=== PATIENT | female | born 1950 | race Caucasian/White ===

== ENCOUNTER 2017-07-07 20:20 | Observation (INO) ==
--- NOTE | 2017-07-07 21:26 | Emergency Department Note ---
ED Disposition Clinical Impression: Hyponatremia CAP (community acquired pneumonia) Qualifiers: Laterality: unspecified laterality Qualified Code(s): J18.9 - Pneumonia, unspecified organism COPD (chronic obstructive pulmonary disease) Qualifiers: COPD type: unspecified COPD Qualified Code(s): J44.9 - Chronic obstructive pulmonary disease, unspecified Disposition: Still a Patient Condition on Discharge: Fair Referrals: Pradeep Trejo [Primary Care Provider] - - Critical Care Critical Care Time: No Attestation: On 07/07/17, the high probability of a clinically significant, sudden or life threatening deterioration of the following system(s) required my full and direct attention, intervention and personal management. The time I documented below is in addition to time spent performing reported procedures but includes the following listed in this critical care notation. Medical Decision Making - Nima Inquiry Pt receiving controlled substance: No Vital Signs: 07/07/17 20:46 07/07/17 22:23 07/07/17 22:24 Temperature 98.5 F Temperature Source Oral Pulse Rate 81 84 Pulse Rate [Right Brachial] 107 H Respiratory Rate 20 Blood Pressure [Right Arm] 148/82 Blood Pressure Mean [Right Arm] 104 Blood Pressure Source [Right Arm] Automatic Cuff Blood Pressure Position [Right Arm] Supine 02 Sat by Pulse Oximetry 95 Oxygen Delivery Method Room Air - Lab Data Lab Results 07/07/17 22:09: Sodium 124 L, Potassium 3.7, Chloride 90 L, Carbon Dioxide 23, Anion Gap 14.7, BUN 11, Creatinine 0.75, Estimated Creat Clear 56, Estimated GFR 78, Est GFR ( Amer) 94, Glucose 96 07/07/17 22:09: Lactic Acid 0.9 07/07/17 22:09: WBC 18.5 H, RBC 4.93, Hgb 14.9, Hct 43.3, MCV 87.9, MCH 30.2, MCHC 34.4, RDW 12.4, Plt Count 285, MPV 8.0, Neut % (Auto) 88.5 H, Lymph % (Auto ) 6.8 L, Kinney % (Auto) 3.4, Eos % (Auto) 1.0, Baso % (Auto) 0.3, Neut # (Auto) 16.4 H, Lymph # (Auto) 1.3, Kinney # (Auto) 0.6, Eos # (Auto) 0.2, Baso # (Auto) 0.1, Total Counted 100, Neutrophils % (Manual) 80 H, Band Neutrophils % 11.0 H, Lymphocytes % (Manual) 4 L, Monocytes % (Manual) 4, Eosinophils % (Manual) 1, Platelet Estimate Normal, RBC Morphology Normal Result diagrams: 07/07/17 22:09 07/07/17 22:09 Orders (Tests/Meds): ED MEDICATIONS Discontinued Medications Generic Name Dose Route Start Last Admin Trade Name Deidra PRN Reason Stop Dose Admin Acetaminophen 650 mg 07/07/17 21:35 07/07/17 22:21 Acetaminophen 325mg Tab PO 07/07/17 21:36 Not Given ONCE ONE Albuterol/Ipratropium 3 ml 07/07/17 21:35 07/07/17 22:21 Duoneb 3ml Neb IH 07/07/17 21:36 3 ml ONCE ONE Administration ORDERS Category Date Time Status Upper Respiratory Panel, PCR Stat Lab 07/07/17 22:25 Received Blood Culture Stat Micro 07/07/17 22:10 Received Medical Decision Narrative: 11:20 PM: I have discussed the case with Dr. Barron for Dr. Cabello who agrees to admit the patient to the hospital. We discussed the patient's clinical information, including history, exam, laboratory and radiology results and ED course. Per hospital procedure, I will write temporary bridge inpatient orders on the patient. Specific orders requested by the admitting physician: Rocephin and Zithromax, steroids and nebulizers, normal saline at 75 cc/h, recheck chemistry in the morning General Adult HPI - General Chief complaint: Upper Respiratory Infection Stated complaint: pneumonia Time Seen by Provider: 07/07/17 21:25 Mode of Arrival: Family Vehicle Limitations: No Limitations Description of Symptoms (Recalled from ER Triage Doc. by RN): CHEST PAIN AND COUGH - History of Present Illness HPI narrative: 2 day history of cough, congestion, fever, shortness of breath. Seen at urgent treatment center today and had a chest x-ray that showed bilateral pneumonia. States that she thinks Allie wanted her to stay, but the patient went home at that time and was advised if she had not improved by 9 AM to return to the emergency room and she would be admitted. She says she has not improved. She was given an injection of Rocephin and Toradol in the urgent treatment center. She was given prescriptions for albuterol, Augmentin, and Zithromax. She has taken Augmentin and Zithromax 1 dose since arriving home. She has taken ibuprofen. She also complains of a headache that has not resolved with Toradol and ibuprofen. She has a nebulizer at home but had run out of albuterol, has not used the nebulizer since discharge from urgent treatment center. Has COPD, still smokes. States has allergy to oral and intravenous steroids. - Related Data Home Medications Medication Instructions Recorded Confirmed Amoxicillin/Potassium Clav 1 tab PO Q12H MDD 1 07/07/17 07/07/17 [Augmentin 875-125 Tablet] Azithromycin [Zithromax 250mg 250 mg PO DIRECTED 07/07/17 07/07/17 tab] Pramipexole Di-HCl [Pramipexole 0.5 mg PO DAILY 07/07/17 07/07/17 Dihydrochloride] buPROPion HCl [Wellbutrin SR 150mg 150 tab PO DAILY MDD 150 07/07/17 07/07/17 Tablet] Previous Rx's Medication Instructions Recorded Albuterol Sulfate [Albuterol 2.5 mg IH Q4HP PRN 30 Days #100 neb 07/07/17 Sulfate 2.5mg/0.5ml Neb] Promethazine/Dextromethorphan 5 ml PO Q6H PRN 10 Days #120 syrup 07/07/17 [Promethazine-Dm Syrup] Allergies Allergy/AdvReac Type Severity Reaction Status Date / Time prednisone Allergy Verified 07/07/17 13:05 [facility] History I have reviewed the patient's past medical history: Yes Medical History: Reports:: Chronic Obstructive Pulmonary Disease (COPD) Denies:: Cancer, Diabetes Mellitus Type 1, Diabetes Mellitus Type 2, Internal Pacemaker, MRSA Other Medical History: Reports: Other (RLS) Laterality Cases: Bilateral: Tonsillectomy Other Surgeries: No: Pacemaker Amputation: No Fractures: No - Social History Educational Level: Attended [employer] Smoking Status: Current every day smoker Tobacco Type: cigarettes # Packs/Day (cigarettes): 1 #Yrs smoked (if former smoker): 60 Alcohol Intake: never - Psychiatric History Expresses thoughts of harming self/others: None Suicide Plan Description: No Plan ROS Obtained: Yes All systems reviewed & no additional complaints - Constitutional Constitutional: Reports fever(s) - Cardiovascular Cardiovascular: Reports chest pain (with cough) - Respiratory Respiratory: Yes chest congestion, Yes cough, Yes dyspnea - Gastrointestinal Gastrointestingal: Denies: diarrhea, vomiting Physical Exam - General General appearance: alert Comment: tachypnea - Head Head exam: atraumatic, normocephalic, normal inspection - Eye Eye exam: Present: normal appearance, PERRL, EOMI - ENT ENT exam: Present: normal exam, normal oropharynx, mucous membranes moist, TM's normal bilaterally, normal external ear exam - Neck Neck exam: Present: normal inspection, full ROM, trachea midline. Absent: meningismus, lymphadenopathy - Chest Chest inspection: Present: normal inspection, symmetric chest wall rise. Absent : tenderness - Respiratory Respiratory exam: Present: other (bilateral crackles). Absent: respiratory distress - Cardiovascular Cardiovascular exam: Present: regular rate, normal rhythm. Absent: JVD - Abdominal Exam Abdominal exam: Present: soft, normal bowel sounds. Absent: distention, tenderness, guarding - Extremities Exam Extremities exam: Present: normal inspection, full ROM, normal capillary refill. Absent: calf tenderness - Back Exam Back exam: Present: normal inspection. Absent: tenderness - Neurological Exam Neurological exam: Present: alert, oriented X3 - Psychiatric Psychiatric exam: Present: normal affect, normal mood - Skin Skin exam: Present: warm, dry, intact, normal color - Lymphatic Lymphatic Findings: no adenopathy
[2017-07-07 22:33] LABS: Coronavirus 229E Not Detected (NotDetected); Coronavirus NL63 Not Detected (NotDetected); Coronavirus OC43 Not Detected (NotDetected); Coronovirus HKU1,PCR Not Detected (NotDetected)
[2017-07-07 22:37] LABS: Basophils # 0.1 K/mm3 (0-0.2); Basophils % 0.3 % (0.1-2.0); Eosinophils # 0.2 K/mm3 (0.0-0.4); Hematocrit 43.3 % (37.0-47.0); Hemoglobin 14.9 g/dL (12.2-16.2); Lymphocytes # 1.3 K/mm3 (0.7-4.5); Lymphocytes % 6.8 K/mm3 (10-50); Mean Corpuscular HGB Conc 34.4 g/dL (31.8-35.4); Mean Corpuscular Hemoglobin 30.2 pg (27.0-31.2); Mean Corpuscular Volume 87.9 fl (81-99); Monocytes # 0.6 K/mm3 (0.1-1.0); Monocytes % 3.4 % (1.7-9.3); Neutrophils # 16.4 K/mm3 (1.8-7.8); Neutrophils % 88.5 % (37.0-80.0); Platelet Count 285 K/mm3 (142-424); Red Blood Count 4.93 M/mm3 (4.20-5.40); Red Cell Distribution Width 12.4 % (11.5-17.5); White Blood Count 18.5 K/mm3 (4.8-10.8)
[2017-07-07 22:45] LABS: Anion Gap 14.7 mEq/L (5-15); Potassium 3.7 mmoL/L (3.5-5.1)
[2017-07-07 22:54] LABS: Eosinophils % 1 % (0-3); Lymphocytes % 4 % (10-50); Monocytes % 4 % (2-9); Neutrophils % 80 % (42-76); Total Cells Counted 100
[2017-07-07 22:55] LABS: RBC Morphology Normal
[2017-07-08 06:05] LABS: Anion Gap 12.4 mEq/L (5-15); Potassium 3.4 mmoL/L (3.5-5.1)
--- NOTE | 2017-07-08 07:33 | History & Physical Report ---
*Admission Date: 07/07/17 *Chief complaint: Shortness of breath and weakness *History of present illness: [id number] female with COPD and [id number] history of smoking presented to the urgent treatment clinic yesterday afternoon with a 2 day history of fevers, chills, cough with mild shortness of breath. Cough is productive of green sputum. Patient was diagnosed with bilateral pneumonia via x-ray in the urgent treatment clinic and it was recommended at that time that she be admitted. Patient refused admission and was discharged home on oral antibiotics. Patient returned to the emergency department within 6 hours now consenting to admission and was admitted for treatment of her pneumonia. Patient's primary care physician is Dr. Trejo. [facility] History I have reviewed the patient's past medical history: Yes Medical History: Reports:: Chronic Obstructive Pulmonary Disease (COPD) Denies:: Cancer, Diabetes Mellitus Type 1, Diabetes Mellitus Type 2, Internal Pacemaker, MRSA Other Medical History: Reports: Anemia, Arthritis, Sinus Problems, Other (RLS) Laterality Cases: Bilateral: Tonsillectomy Other Surgeries: Yes: Cholecystectomy, Hysterectomy-Total. No: Pacemaker Amputation: No Fractures: No - *Social History Educational Level: Attended College Smoking Status: Current every day smoker Tobacco Type: cigarettes # Packs/Day (cigarettes): 1 #Yrs smoked (if former smoker): 52 Alcohol Intake: current Alcohol Intake Frequency:: holidays/special occasions only Occupational Status: retired Housing: house Household Members: spouse - Psychiatric History Expresses thoughts of harming self/others: None Suicide Plan Description: No Plan *Family Hx:: Anemia, Heart Attack, Hypertension, Kidney Disease, Stroke Review of Systems - Review of Systems Review of systems:: pertinent systems reviewed and negative unless documented below - Constitutional Reports anorexia, Reports chills, Reports fatigue, Reports lack of energy - *Cardiovascular Denies chest pain, Denies chest pain at rest, Denies chest pain with activity - *Respiratory Reports change in phlegm color, Reports chest congestion, Reports cough, Reports shortness of breath, Reports shortness of breath with activity - *Gastrointestinal Denies abdominal pain Meds Home Medications Medication Instructions Recorded Confirmed Type Amoxicillin/Potassium Clav 1 tab PO Q12H MDD 1 07/07/17 07/08/17 History [Augmentin 875-125 Tablet] Azithromycin [Zithromax 250mg 250 mg PO DIRECTED 07/07/17 07/08/17 History tab] Pramipexole Di-HCl [Pramipexole 0.5 mg PO DAILY 07/07/17 07/08/17 History Dihydrochloride] buPROPion HCl [Wellbutrin SR 150mg 150 tab PO DAILY MDD 150 07/07/17 07/08/17 History Tablet] Allergies Allergy/AdvReac Type Severity Reaction Status Date / Time prednisone Allergy Verified 07/07/17 13:05 Exam Vital signs and Labs for Last 24 Hours: Temp Pulse Resp BP Pulse Ox 98.0 F 82 20 155/84 93 L 07/08/17 04:00 07/08/17 06:20 07/08/17 04:00 07/08/17 04:00 07/08/17 06:20 Laboratory Results - last 24 hr 07/07/17 22:09: Sodium 124 L, Potassium 3.7, Chloride 90 L, Carbon Dioxide 23, Anion Gap 14.7, BUN 11, Creatinine 0.75, Estimated Creat Clear 56, Estimated GFR 78, Est GFR ( Amer) 94, Glucose 96 07/07/17 22:09: Lactic Acid 0.9 07/07/17 22:09: WBC 18.5 H, RBC 4.93, Hgb 14.9, Hct 43.3, MCV 87.9, MCH 30.2, MCHC 34.4, RDW 12.4, Plt Count 285, MPV 8.0, Neut % (Auto) 88.5 H, Lymph % (Auto ) 6.8 L, Sunflower % (Auto) 3.4, Eos % (Auto) 1.0, Baso % (Auto) 0.3, Neut # (Auto) 16.4 H, Lymph # (Auto) 1.3, Sunflower # (Auto) 0.6, Eos # (Auto) 0.2, Baso # (Auto) 0.1, Total Counted 100, Neutrophils % (Manual) 80 H, Band Neutrophils % 11.0 H, Lymphocytes % (Manual) 4 L, Monocytes % (Manual) 4, Eosinophils % (Manual) 1, Platelet Estimate Normal, RBC Morphology Normal 07/07/17 22:25: Chlamy pneumoniae PCR Not detected, Adenovirus (PCR) Not detected, B.parapertussis DNA PCR Not detected, Coronavirus OC43 (PCR) Not detected, Coronavirus HKU1 (PCR) Not detected, Coronavirus 229E (PCR) Not detected, Coronavirus NL63 (PCR) Not detected, Human Metapneumovir PCR Not detected, Influenza A (H1) PCR Not detected, Influ A (H1N1/09) PCR Not detected , Influenza A (H3) PCR Not detected, Influenza Type A (PCR) Not detected, Influenza Type B (PCR) Not detected, M. pneumoniae (PCR) Not detected, Parainfluenza 1 (PCR) Not detected, Parainfluenza 2 (PCR) Not detected, Parainfluenza 3 (PCR) Not detected, Parainfluenza 4 (PCR) Not detected, RSV (PCR ) Not detected, Entero/Rhino (PCR) Not detected 07/08/17 05:30: Sodium 126 L, Potassium 3.4 L, Chloride 93 L, Carbon Dioxide 24 , Anion Gap 12.4, BUN 10, Creatinine 0.60, Estimated Creat Clear 56, Estimated GFR 100, Est GFR ( Amer) 121 D, Glucose 90 I & O for Last 24 hours: Intake & Output 07/05/17 07/06/17 07/07/17 07/08/17 11:59 11:59 11:59 11:59 Weight 139 lb 6 oz Narrative: Patient appears comfortable sitting up in bed. Pupils are reactive to light. Oropharynx is moist. Neck is without lymphadenopathy. Lungs are clear anteriorly with good aeration. Posteriorly the patient has rales at the left lung base. Heart rate is regular. Abdomen is soft and nontender. Extremities are without edema. Neurologically there are no focal deficits H&P: Result - Labs Labs: Short CBC 07/07/17 Range/Units 22:09 WBC 18.5 H (4.8-10.8) K/mm3 Hgb 14.9 (12.2-16.2) g/dL Hct 43.3 (37.0-47.0) % Plt Count 285 (142-424) K/mm3 [facility] 07/07/17 07/08/17 22:09 05:30 Sodium 124 L 126 L Potassium 3.7 3.4 L Chloride 90 L 93 L Carbon Dioxide 23 24 BUN 11 10 Creatinine 0.75 0.60 Glucose 96 90 - Imaging and Cardiology Chest x-ray Status: image reviewed by me, final report Assessment and Plan (1) CAP (community acquired pneumonia) Current visit: Yes Status: Acute Qualifiers: Laterality: left Lung location: lower lobe of lung Qualified Code(s): J18.1 - Lobar pneumonia, unspecified organism Category: Medical Code(s): J18.9 - Pneumonia, unspecified organism (2) COPD (chronic obstructive pulmonary disease) Current visit: Yes Status: Acute Qualifiers: COPD type: unspecified COPD Qualified Code(s): J44.9 - Chronic obstructive pulmonary disease, unspecified Category: Medical Code(s): J44.9 - Chronic obstructive pulmonary disease, unspecified (3) Hyponatremia Current visit: Yes Status: Acute Category: Medical Code(s): E87.1 - Hypo- osmolality and hyponatremia - Assessment and plan all Dx Assessment and Plan for all problems:: 1. Rocephin and azithromycin to treat community-acquired pneumonia. 2. Normal saline at 75 mL's an hour for patient's hyponatremia 3. Home medications
--- NOTE | 2017-07-08 11:39 | Pharmacy Consult Notes ---
[facility] Pharmacy VTE Monitoring - Patient Demographics Admission date: 07/08/17 Report Date: 07/08/17 Time: 11:39 Allergies/Adverse Reactions: Patient Allergies prednisone Allergy (Verified 07/07/17 13:05) Height: 1.5 m Weight: 63.219 kg Patient Problems: Current Active Problems CAP (community acquired pneumonia) (Acute) Hyponatremia (Acute) COPD (chronic obstructive pulmonary disease) (Acute) - VTE Risk Labs: VTE Related Lab Results Hgb 14.9 g/dL (12.2-16.2) 07/07/17 22:09 Hct 43.3 % (37.0-47.0) 07/07/17 22:09 Plt Count 285 K/mm3 (142-424) 07/07/17 22:09 BUN 10 mg/dL (7-18) 07/08/17 05:30 Creatinine 0.60 mg/dL (0.55-1.02) 07/08/17 05:30 Estimated Creat Clear 56 mL/min (0-300) 07/08/17 05:30 Was VTE Risk Assessment Performed: Yes VTE Risk Level: Very Low Risk - VTE Diagnosis Confirmed Comment: CHRISTINE ALEJANDRA ORDERED
[2017-07-09 07:37] VITALS: BP 130/69
--- NOTE | 2017-07-09 08:12 | Discharge Summary ---
General - General Admission date:: 07/08/17 Discharge date: 07/09/17 HPI HPI: [id number] female with COPD and 18-fxzr-iyau history of smoking presented to the urgent treatment clinic yesterday afternoon with a 2 day history of fevers, chills, cough with mild shortness of breath. Cough is productive of green sputum. Patient was diagnosed with bilateral pneumonia via x-ray in the urgent treatment clinic and it was recommended at that time that she be admitted. Patient refused admission and was discharged home on oral antibiotics. Patient returned to the emergency department within 6 hours now consenting to admission and was admitted for treatment of her pneumonia. Patient's primary care physician is Dr. Trejo. Hospital Course Hospital Course: She was admitted, placed on a community-acquired pneumonia protocol with azithromycin and ceftriaxone. Her oxygen requirement was noted on admission but improved throughout the next day and yesterday. Last night she did well. This morning she is doing very nicely. No oxygen requirement, has been able to get up and move around the room without difficult shortness of air. Continue to have a minimally productive cough. Cultures have been negative. Of note maintains her admission hyponatremia. Chest x-ray from [facility] reviewed showing bilateral infiltrates. Plan will be to discharge patient today with close outpatient follow-up and continued antibiotic therapy. Please note that patient should have been observation status from her admission. Please note patient will need workup of her hyponatremia and I have asked that she have a blood count and BMP done before her appointment with Dr. Trejo on . Objective Vital signs: Temp Pulse Resp BP Pulse Ox 97.2 F L 99 H 18 130/69 93 L 07/09/17 07:36 07/09/17 07:36 07/09/17 07:36 07/09/17 07:36 07/09/17 07:36 Narrative: Is awake, alert, oriented 3. 93% saturations on room air. Lungs have rhonchi in both bases but better air entry than recorded admission exam. Heart rate regular, no clubbing, no cyanosis. No edema noted. Results Labs on day of discharge: Preliminary micro results at discharge 07/07/17 22:10 Blood Culture - Preliminary Blood NO GROWTH AFTER 24 HOURS 07/07/17 22:10 Blood Culture - Preliminary Blood NO GROWTH AFTER 24 HOURS DS: Diagnosis - Discharge Diagnosis (1) CAP (community acquired pneumonia) Status: Acute (2) COPD (chronic obstructive pulmonary disease) Status: Acute (3) Hyponatremia Status: Acute Discharge Plan - Patient Discharge Instructions ACTIVITY: Limited activity DIET: continue same diet - Follow up Plan Follow up with: Pradeep Trejo [Primary Care Provider] - 07/12/17 Disposition: Home, Self-Longterm Medications: Home Medications Medication Instructions Recorded Confirmed Type Pramipexole Di-HCl [Pramipexole 0.5 mg PO DAILY 07/07/17 07/08/17 History Dihydrochloride] buPROPion HCl [Wellbutrin SR 150mg 150 tab PO BID 07/07/17 07/08/17 History Tablet] Prescriptions/Medication Reconciliation: New Azithromycin [Zithromax 250mg tab] 250 mg PO DIRECTED #6 tab Cefdinir [Omnicef 300mg Capsule] 300 mg PO BID #14 cap Continue Albuterol Sulfate [Albuterol Sulfate 2.5mg/0.5ml Neb] 2.5 mg IH Q4HP PRN 30 Days #100 neb PRN Reason: Wheezing Pramipexole Di-HCl [Pramipexole Dihydrochloride] 0.5 mg PO DAILY buPROPion HCl [Wellbutrin SR 150mg Tablet] 150 tab PO BID
== END 2017-07-09 09:20 | disposition home or self-care (01) ==
LOC: ER 20:20 → 2ND 20:20
PROVIDERS: ADMIT Family Medicine; ATTEND Internal Medicine Adolescent Medicine
CPT/HCPCS: 36415; 71020; 71046; 80048; 83605; 85007; 85025; 87040; 87070; 87205; 87486; 87581; 87633; 87798; 94640; 94761; 96372; 99202; 99284; G0378; J0456

== ENCOUNTER → 2017-07-13 14:15 | Outpatient (CLI) | payer MEDICARE, SELFPAY ==
[2017-07-13 14:56] LABS: Anion Gap 15.7 mEq/L (5-15); Blood Urea Nitrogen 10 mg/dL (7-18); Carbon Dioxide 25 mmol/L (21.0-32.0); Chloride 93 mmol/L (98-107); Creatinine,Serum 0.75 mg/dL (0.55-1.02); Estimated Glomerular Filt Rate 78 ml/min (>60); GFR (African American) 94 ML/MIN (>60); Glucose 117 mg/dL (74-106); Potassium 4.7 mmoL/L (3.5-5.1); Sodium 129 mmol/L (136-145); Thyroid Stimulating Hormone 2.44 uIU/ml (0.358-3.740); Troponin I < 0.02 ng/ml (0.00-0.06)
== END ==
PROVIDERS: Visit Provider Internal Medicine
DX: R07.9 Chest pain, unspecified (principal); E87.1 Hypo-osmolality and hyponatremia
CPT/HCPCS: 36415; 80048; 84443; 84484; 93005

== ENCOUNTER → 2017-08-22 13:32 | Outpatient (CLI) | payer MEDICARE, SELFPAY ==
--- NOTE | 2017-08-22 13:36 | MM_ITS ---
MM Dig mamm DX unilat RT CAD, US breast RT complete INDICATION: 6 month follow-up abnormal mammogram ORDERING PHYSICIAN: Pradeep Trejo PATIENT AGE: 66 years COMPARISON: 01/10/2017 TECHNIQUE: Standard images performed along with problem-solving views and right breast ultrasound FINDINGS: Average fibroglandular tissue. The previously noted area of asymmetric density is somewhat less apparent. No malignant appearing mass or malignant appearing microcalcifications evident.. There are some scattered areas of asymmetric density felt to be related overlying fibroglandular tissue on problem-solving views and ultrasound Right breast ultrasound: No cystic or sonographic abnormality evident. Small nodes are present in the axilla. IMPRESSION: Benign findings, no evidence of malignancy BI-RADS Category: 2 Benign Finding(s) RECOMMENDED FOLLOW-UP: 6M - 6 MONTH FOLLOW-UP Recommend resume screening mammogram January 2018 (A letter has been sent to the patient regarding results of the study.)
== END ==
PROVIDERS: Family Provider Family Medicine Geriatric Medicine; PCP Internal Medicine; Visit Provider Internal Medicine
DX: R92.8 Other abnormal and inconclusive findings on diagnostic imaging of breast (principal)
CPT/HCPCS: 77065

== ENCOUNTER → 2017-08-27 10:09 | Outpatient (CLI) | payer MEDICARE, SELFPAY | PROVIDERS: Family Provider Family Medicine Geriatric Medicine; PCP Internal Medicine; Visit Provider Internal Medicine | DX: R92.8 Other abnormal and inconclusive findings on diagnostic imaging of breast (principal) | CPT/HCPCS: 76641 ==

== ENCOUNTER → 2018-04-29 11:01 | Outpatient (CLI) | payer MEDICARE, SELFPAY ==
--- NOTE | 2018-04-29 11:14 | XR_ITS ---
XR chest 2V HISTORY: ITS.REASON: COPD,LT CHEST WALL PAIN ORDERING PHYSICIAN: Pradeep Trejo PATIENT AGE: 67 years COMPARISON: 07/07/2017 FINDINGS: The cardiomediastinal silhouette and pulmonary vascularity are within normal limits. The lungs are clear without infiltrates, suspicious nodules, or pleural effusions. No acute bony abnormalities. Surgical clips are present in the left upper quadrant IMPRESSION: Negative chest, no acute finding
== END ==
PROVIDERS: PCP Internal Medicine; Visit Provider Internal Medicine
DX: R09.89 Other specified symptoms and signs involving the circulatory and respiratory systems (principal); J44.9 Chronic obstructive pulmonary disease, unspecified
CPT/HCPCS: 71046

== ENCOUNTER → 2018-09-09 10:07 | Outpatient (CLI) | payer MEDICARE, SELFPAY ==
[2018-09-09 10:16] LABS: Basophils # 0.1 K/mm3 (0-0.2); Basophils % 0.3 % (0.1-2.0); Eosinophils # 0.1 K/mm3 (0.0-0.4); Eosinophils % 0.7 % (0.1-12.0); Hematocrit 48.2 % (37.0-47.0); Hemoglobin 15.2 g/dL (12.2-16.2); Lymphocytes # 1.3 K/mm3 (0.7-4.5); Lymphocytes % 8.3 % (10-50); Mean Corpuscular HGB Conc 31.6 g/dL (31.8-35.4); Mean Corpuscular Hemoglobin 28.1 pg (27.0-31.2); Mean Platelet Volume 7.6 fl (7.4-10.4); Monocytes # 0.9 K/mm3 (0.1-1.0); Monocytes % 5.3 % (1.7-9.3); Neutrophils # 13.8 K/mm3 (1.8-7.8); Neutrophils % 85.4 % (37.0-80.0); Platelet Count 403 K/mm3 (142-424); Red Blood Count 5.42 M/mm3 (4.20-5.40); Red Cell Distribution Width 13.2 % (11.5-17.5); White Blood Count 16.2 K/mm3 (4.8-10.8)
[2018-09-09 10:24] LABS: MANUAL DIFFERENTIAL MANUAL DIFFERENTIAL (MANUAL DIFF)
[2018-09-09 10:30] LABS: Anion Gap 13.1 mEq/L (5-15); Blood Urea Nitrogen 17 mg/dL (7-18); Calcium 8.6 mg/dL (8.5-10.1); Carbon Dioxide 29 mmol/L (21.0-32.0); Chloride 98 mmol/L (98-107); Creatinine,Serum 0.82 mg/dL (0.55-1.02); Estimated Glomerular Filt Rate 70 ml/min (>60); GFR (African American) 84 ML/MIN (>60); Glucose 107 mg/dL (74-106); Potassium 4.1 mmoL/L (3.5-5.1); Sodium 136 mmol/L (136-145)
[2018-09-09 11:03] LABS: Lymphocytes % 8 % (10-50); Monocytes % 5 % (2-9); Neutrophils % 82 % (42-76); Platelet Estimate Normal; RBC Morphology Normal; Total Cells Counted 100
== END ==
PROVIDERS: Visit Provider Internal Medicine
DX: R68.83 Chills (without fever) (principal); I10 Essential (primary) hypertension
CPT/HCPCS: 80048; 85007; 85025

== ENCOUNTER → 2018-11-13 14:28 | Outpatient (CLI) | payer MEDICARE, SELFPAY ==
--- NOTE | 2018-11-13 14:29 | CT_ITS ---
PROCEDURE: CT LUNG SCREENING CLINICAL INDICATION: CURRENT TOBACCO USE Fifty pack-year smoking history, asymptomatic for lung cancer COMPARISON: [facility] CT CHEST W/O CONTRAST from 10/22/2013 TECHNIQUE: The exam was performed on a GE Light Speed [address] scanner using 2.90 mGy CTDI. A low dose helical CT CHEST was performed on a multi-detector scanner. All CT scans at the facility use one or more dose reduction, viz: automated exposure control, ma/kV adjustment per patient size (including targeted exams where dose is matched to indication, i.e. head), or iterative reconstruction technique. The LDCT was performed in a facility that meets the criteria for the screening program. Data regarding this exam was submitted to ACR which is an approved registry. The order for this exam indicates that it came as a result of a lung cancer screening counseling shard decision-making visit that included all the elements required of such a visit including smoking cessation. The radiologist interpreting this exam meets the CMS criteria for the LDCT lung cancer screening program. The exam is reported using the Lung-RADS classification scale and reported to the ACR registry. NOTE: This study was performed for the specific purposes of lung cancer screening and is not an alternative to diagnostic chest CT. RADIATION DOSE: CTDI vol(CT dose Index-volume) = 2.90mG DLP (Dose Length Product) = 101.60 mGcm FINDINGS: COPD. Stable 5 mm right apical nodule series 4, image 19. Stable calcified granuloma right lower lobe. Scattered areas of tree in bud opacities noted in both upper lobes, right middle lobe and lingula and in the lung bases laterally on the right and posteriorly on the left with bronchial thickening noted as well consistent with bronchopneumonia. No new suspicious nodules are evident however, small nodules could easily be obscured by the above-mentioned abnormalities. There is scattered small lymph nodes in the mediastinum and axilla. Postsurgical changes of the stomach. Prior gastric bypass OTHER FINDINGS: No other pertinent findings evident. IMPRESSION: Lung rads category 3 probably benign Numerous tree-in-bud opacities are present along with bronchial thickening suggesting bronchopneumonia. RECOMMEND 3 month follow-up diagnostic CT without and with contrast to confirm stability or resolution Dictated by: Corey Smith MD 11/18/2018 05:36 Electronically signed by Corey Smith MD in [place] 11/18/2018 05:36
== END ==
PROVIDERS: PCP Internal Medicine; Visit Provider Internal Medicine
DX: Z87.891 Personal history of nicotine dependence (principal); Z12.2 Encounter for screening for malignant neoplasm of respiratory organs

== ENCOUNTER 2019-03-16 21:45 | Inpatient (IN) ==
[2019-03-16 22:09] LABS: ABG Base Excess -7.4 mmol/L (-2.4-2.3); ABG HCO3 19.8 mmhg (22.0-26.0); ABG Oxygen Saturation 97 % (90-100); ABG PCO2 45.7 mmhg (35.0-45.0); ABG PH 7.25 mmol/L (7.35-7.45); ABG PO2 101.2 mmhg (80-100); ABG TCO2 21.2 mmhg (23-27); Allen's Test Y; Oxygen 4 %
[2019-03-16 22:27] LABS: Basophils % 0.2 % (0.1-2.0); Eosinophils # 0.1 K/mm3 (0.0-0.4); Eosinophils % 0.6 % (0.1-12.0); Hematocrit 47.8 % (37.0-47.0); Hemoglobin 14.1 g/dL (12.2-16.2); Lymphocytes # 1.3 K/mm3 (0.7-4.5); Lymphocytes % 6.4 % (10-50); Mean Corpuscular HGB Conc 29.5 g/dL (31.8-35.4); Mean Corpuscular Volume 93.9 fl (81-99); Mean Platelet Volume 8.3 fl (7.4-10.4); Monocytes # 1.1 K/mm3 (0.1-1.0); Monocytes % 5.2 % (1.7-9.3); Neutrophils # 18.3 K/mm3 (1.8-7.8); Neutrophils % 87.6 % (37.0-80.0); Platelet Count 411 K/mm3 (142-424); Red Blood Count 5.09 M/mm3 (4.20-5.40); Red Cell Distribution Width 14.2 % (11.5-17.5); White Blood Count 20.9 K/mm3 (4.8-10.8)
[2019-03-16 22:32] LABS: Albumin Level 3.1 gm/dL (3.4-5.0); Albumin/Globulin Ratio 0.7 (1.1-1.8); Anion Gap 14.5 mEq/L (5-15); Bilirubin,Total 0.5 mg/dL (0.2-1.0); Calcium 9.3 mg/dL (8.5-10.1); Globulin 4.5 gm/dl (1.3-3.2); Total Protein,Serum 7.6 gm/dL (6.4-8.2)
--- NOTE | 2019-03-16 22:38 | Emergency Department Note ---
ED Disposition Clinical Impression: Acute exacerbation of chronic obstructive airways disease, Severe sepsis, Acute respiratory failure with hypoxemia, Acute respiratory acidosis, Non-ST elevation (NSTEMI) myocardial infarction, Failure of outpatient treatment Pneumonia of both lower lobes Qualifiers: Pneumonia type: due to unspecified organism Qualified Code(s): J18.9 - Pneumonia, unspecified organism Disposition: Admitted As Inpatient Condition on Discharge: Serious Referrals: Pradeep Trejo [Primary Care Provider] - Time of Disposition: 02:35 - Critical Care Critical Care Time: Yes Attestation: On 03/16/19, the high probability of a clinically significant, sudden or life threatening deterioration of the following system(s) required my full and direct attention, intervention and personal management. The time I documented below is in addition to time spent performing reported procedures but includes the following listed in this critical care notation. Bedside repeated clinical assessment and management. Critical care management associated with the cardiac as well as respiratory status management, Metabolic and clinical state management, consult as well as admission. Total Critical Care Time: 120 Vital system(s) involved:: Circulatory Failure, Metabolic Failure, Respiratory Failure, Shock (Septic) My critical care processes included: Assessment & monitoring of V/S, Initial and Re-exams, Data Review/Interpretation, Coordinating Care, Medication Orders and management, Documentation Medical Decision Making - Nima Inquiry Pt receiving controlled substance: No Vital Signs: 03/16/19 21:47 03/16/19 21:52 03/16/19 22:25 Temperature 99.5 F Temperature Source Oral Pulse Rate 83 Pulse Rate [Right Brachial] 113 H Respiratory Rate 38 H Blood Pressure [Right Arm] 155/74 H Blood Pressure Mean [Right Arm] 101 Blood Pressure Source [Right Arm] Automatic Cuff Blood Pressure Position [Right Arm] Sitting 02 Sat by Pulse Oximetry 87 L 97 Oxygen Delivery Method Room Air Nasal Cannula Oxygen Flow Rate (LPM) 03/16/19 22:26 03/16/19 22:28 03/16/19 22:54 Temperature Temperature Source Pulse Rate 84 Pulse Rate [Right Brachial] 111 H 95 H Respiratory Rate 42 H 39 H Blood Pressure [Right Arm] 150/54 H 114/66 Blood Pressure Mean [Right Arm] 86 82 Blood Pressure Source [Right Arm] Automatic Cuff Automatic Cuff Blood Pressure Position [Right Arm] Sitting Sitting 02 Sat by Pulse Oximetry 98 100 Oxygen Delivery Method Nasal Cannula Room Air Oxygen Flow Rate (LPM) 3 03/16/19 23:43 03/16/19 23:52 03/17/19 00:14 Temperature Temperature Source Pulse Rate Pulse Rate [Right Brachial] 117 H 110 H 101 H Respiratory Rate 46 H 36 H 37 H Blood Pressure [Right Arm] 134/61 174/95 H 149/94 H Blood Pressure Mean [Right Arm] 85 121 112 Blood Pressure Source [Right Arm] Manual Cuff/ Doppler Automatic Cuff Automatic Cuff Blood Pressure Position [Right Arm] Sitting Sitting Sitting 02 Sat by Pulse Oximetry 99 99 98 Oxygen Delivery Method Nasal Cannula BiPAP BiPAP Oxygen Flow Rate (LPM) 4 03/17/19 00:31 03/17/19 01:05 03/17/19 02:12 Temperature Temperature Source Pulse Rate Pulse Rate [Right Brachial] 98 H 112 H 129 H Respiratory Rate 34 H 36 H 26 H Blood Pressure [Right Arm] 124/79 115/50 L 141/76 H Blood Pressure Mean [Right Arm] 94 71 97 Blood Pressure Source [Right Arm] Automatic Cuff Manual Cuff/ Doppler Blood Pressure Position [Right Arm] Sitting Sitting 02 Sat by Pulse Oximetry 100 100 96 Oxygen Delivery Method BiPAP BiPAP BiPAP Oxygen Flow Rate (LPM) - Lab Data Lab results reviewed: Yes: I reviewed the patient's lab results. Lab Results 03/16/19 22:00: WBC 20.9 H*, RBC 5.09, Hgb 14.1, Hct 47.8 H, MCV 93.9, MCH 27.7, MCHC 29.5 L, RDW 14.2, Plt Count 411, MPV 8.3, Neut % (Auto) 87.6 H, Lymph % (Auto) 6.4 L, [place] % (Auto) 5.2, Eos % (Auto) 0.6, Baso % (Auto) 0.2, Neut # (Auto) 18.3 H, Lymph # (Auto) 1.3, [place] # (Auto) 1.1 H, Eos # (Auto) 0.1, Baso # (Auto) 0.0, Total Counted 100, Neutrophils % (Manual) 77 H, Band Neutrophils % 13.0 H, Lymphocytes % (Manual) 10, Toxic Granulation 2+, Platelet Estimate Normal, Hypochromasia 1+, Rouleaux 1+ 03/16/19 22:00: Sodium 134 L, Potassium 4.5, Chloride 98, Carbon Dioxide 26, Anion Gap 14.5, BUN 12, Creatinine 0.71, Estimated Creat Clear 51, Estimated GFR 82, Est GFR ( Amer) 99, Glucose 160 H, Calcium 9.3, Total Bilirubin 0.5, AST 308 H*, ALT 276 H, Alkaline Phosphatase 188 H, Total Protein 7.6, Albumin 3.1 L, Globulin 4.5 H, Albumin/Globulin Ratio 0.7 L 03/16/19 22:00: Lactate 2.0 03/16/19 22:00: Influenza Type A Ag Negative, Influenza Type B Ag Negative 03/16/19 22:00: D-Dimer 1100 H* 03/16/19 22:00: Troponin I 0.63 H 03/16/19 22:00: B-Natriuretic Peptide 880 H 03/16/19 22:00: PT 9.2 L, INR 0.88 L 03/16/19 22:08: Specimen Source R/r, O2 % 4, ABG pH 7.25 L, ABG pCO2 45.7 H, ABG pO2 101.2 H, ABG HCO3 19.8 L, ABG Total CO2 21.2 L, ABG O2 Saturation 97, ABG Base Excess -7.4 L, Corey Test Y 03/17/19 00:53: Specimen Source R/r, O2 % 60, ABG pH 7.31 L, ABG pCO2 43.4, ABG pO2 285.9 H, ABG HCO3 21.5 L, ABG Total CO2 22.8 L, ABG O2 Saturation 100, ABG Base Excess -4.8 L, Corey Test Y, Vent Rate 22 03/17/19 01:15: Troponin I 1.21 H Result diagrams: 03/16/19 22:00 03/16/19 22:00 Orders (Tests/Meds): ED MEDICATIONS Generic Name Dose Route Start Last Admin Trade Name Freq PRN Reason Stop Dose Admin Sodium Chloride 1,000 mls @ 999 mls/hr 03/16/19 22:30 03/16/19 22:45 Sod Chlor 0.9% 1000ml Bag IV 03/16/19 23:30 999 mls/hr .Q1H1M BHARAT Administration Azithromycin 500 mg/ Sodium 250 mls @ 250 mls/hr 03/16/19 23:15 03/16/19 23:15 Chloride IV 03/30/19 23:14 250 mls/hr Q24H BHARAT Administration Protocol Sodium Chloride 1,000 mls @ 150 mls/hr 03/17/19 01:15 03/17/19 01:19 Sod Chlor 0.9% 1000ml Bag IV 04/16/19 01:14 150 mls/hr .Q6H40M BHARAT Administration Vancomycin HCl 1,000 mg/ 250 mls @ 125 mls/hr 03/17/19 01:28 03/17/19 02:03 Sodium Chloride IV 03/17/19 03:27 125 mls/hr ONCE ONE Administration Sodium Chloride 10 ml 03/16/19 22:20 Saline Flush 10ml Syringe IV 03/17/19 10:20 NEEDED PRN Maintain IV Site Discontinued Medications Generic Name Dose Route Start Last Admin Trade Name Freq PRN Reason Stop Dose Admin Albuterol Sulfate 5 mg 03/16/19 22:23 03/16/19 23:01 Albuterol 0.083% 2.5mg/3ml [facility] 03/16/19 22:24 5 mg ONCE ONE Administration Albuterol Sulfate 5 mg 03/16/19 23:05 03/17/19 02:15 Albuterol 0.083% 2.5mg/3ml [facility] 03/16/19 23:06 Not Given ONCE ONE Enoxaparin Sodium 60 mg 03/17/19 02:22 03/17/19 02:23 Lovenox 60mg/0.6ml Syringe SQ 03/17/19 02:23 60 mg ONCE ONE Administration Ceftriaxone Sodium 1 gm/ 50 mls @ 100 mls/hr 03/16/19 22:19 03/16/19 22:45 Sodium Chloride IV 03/16/19 22:48 100 mls/hr ONCE STA Administration Protocol Magnesium Sulfate 2 gm/ Sodium 104 mls @ 100 mls/hr 03/16/19 23:33 03/16/19 23:48 Chloride IV 03/17/19 00:35 100 mls/hr ONCE ONE Administration Methylprednisolone Sodium Succinate 125 mg 03/16/19 22:42 03/16/19 22:44 Solu-Medrol 125mg/2ml Vial IV 03/16/19 22:43 125 mg ONCE ONE Administration Methylprednisolone Sodium Succinate 80 mg 03/16/19 23:33 03/16/19 23:48 Methylprednisolone Sod Succinate 40mg Vial IV 03/16/19 23:34 80 mg ONCE STA Administration ORDERS Category Date Time Status CT abdomen pelvis w con Stat Cat Scan 03/17/19 00:[address] angio chest Stat Cat Scan 03/17/19 00:01 Ordered XR chest portable Stat Exams 03/16/19 21:56 Taken Troponin I Q3H Lab 03/17/19 04:30 Ordered Blood Culture Stat Micro 03/16/19 22:00 Received Sputum Culture & Gram Stain Routine Micro 03/16/19 23:49 Results Arterial Blood Gas Stat RT 03/16/19 21:56 Ordered ECG Request by /Geraldo Stat Y 03/16/19 21:56 Ordered - Radiology Data #1 Image(s): Chest Image Reviewed: Yes I reviewed the patient's radiology image Bilateral bibasilar consolidation/infiltrate/pneumonia, worse on the left than the right - ECG Data Tracing #1 EKG done at 2222 hrs. shows sinus tachycardia with a heart rate of 115 bpm, questionable atrial fibrillation, with rapid ventricular response. Tracing #2 EKG done at 2250 hrs. shows normal sinus rhythm with a heart rate of 80 bpm, normal P waves, normal FL interval, nonspecific ST-T changes. - Physician Consults Physician Consulted: Dr. Reyes Time: 02:00 Reason -: Admission, Pt condition Comment/Response: Discussed with Dr. Reyes regarding the patient and he wanted the patient to be on BiPAP and continue the current management. He also wants me to discuss the case with the cardiology on-call Dr. Crawford. Plan to admit the patient to the ICU. Additional Consult: Dr. Crawford Time: 02:10 Reason -: Pt condition, Cardiology Eval/Care Comment/Response: Discussed with Dr. Crawford regarding the patient and he wanted the patient to continue the present management and be admitted so that she can get 2D echo done in the morning. He also wants the patient to get Lovenox 1 mg/kg based dose. - Reevaluation(s) Time: 23:45 Reevaluation #1: Patient is having persistent acute dyspnea with tachypnea. She was having bilateral bronchospasm. We had to give her repeated breathing treatment which was still not controlling the bronchospasm. Plan to give her a repeat dose of Solu-Medrol and magnesium sulfate. Also plan to start the patient on BiPAP to help her breathe well. Time: 00:35 Reevaluation #3: Patient's blood gas seems to be much improved than earlier. C seems to be feeling better. Patient looks better. She does not have wheezes and bronchospasm as compared to earlier. We had not done the CT scan of the chest to evaluate the patient's clinical status. Plan to do the CT scan since the clinical status has improved to some extent. Time reevaluation 3: 01:15 Reevaluation #2: Patient seems to be slightly improving with the BiPAP. C seems to be improving after the magnesium sulfate and the repeat dose of Solu-Medrol. Plan to continue the same. She had elevated d-dimer and elevated liver enzymes with elevated troponin. Plan to get a CT scan of the chest and abdomen pelvis done. May have to rule out pulmonary embolism. - FREYA Score for Non-Stemi Age of Patient: 60-69 years old Heart Rate: 110-149 bpm Systolic Blood Pressure: 120-139 mmhg Serum Creatinine: 0.40-0.79 mg/dl CHF [place] Class: II-Pulmonary Rales or Jug Other Risk Factors: Elevated Cardiac Enzymes or Biomarkers Non-Stemi Risk Score: 154 Resp/SOB HPI - General Chief Complaint: Shortness of Breath/Dyspnea Stated Complaint: SOB Time Seen by Provider: 03/16/19 21:55 Mode of Arrival: Family Vehicle Source of Information: Patient Limitations: No Limitations Description of Symptoms (Recalled from ER Triage Doc. by RN): Pt c/o SOA, cough, fever, n/v for over a week, and the SOA that got bad today. No cp reported - History of Present Illness 68-year-old female presents with chief complaint of having shortness of breath for the last 3 to 4 days. She states she had been to her primary care provider and was started on antibiotics along with steroids for the last 3 days. Her symptoms have not been getting better but actually getting worse. She has been coughing up thick greenish sputum. Has not noticed any fever but complains of feeling generalized weakness. Her shortness of breath has been getting worse today. She feels like exhausted. Complains of generalized discomfort. She has a history of COPD. She smokes about a 1 pack a day. Denies using oxygen at home. Denies having any acute chest pain. Denies having nausea or vomiting. Denies having any fall or injury. MD Complaint: shortness of breath, cough Onset (ago): day(s) (3-4) Severity: severe - Related Data Home Medications Medication Instructions Recorded Confirmed Amoxicillin [Amoxicillin 500mg 500 mg PO BID 03/16/19 03/16/19 Cap] Gabapentin [Gabapentin 300mg Cap] 300 mg PO DAILY 03/16/19 03/16/19 predniSONE [Deltasone 20mg 20 mg PO DAILY 03/16/19 03/16/19 tablet] Previous Rx's Medication Instructions Recorded Albuterol Sulfate [Albuterol 2.5 mg IH Q4HP PRN 30 Days #100 neb 07/07/17 Sulfate 2.5mg/0.5ml Neb] Allergies Allergy/AdvReac Type Severity Reaction Status Date / Time No Known Allergies Allergy Verified 03/16/19 21:58 [facility] History - Hepatitis A Screen Drug use history?: No High risk sexual behaviors?: No History of sexually transmitted infection?: No Currently employed?: No Childcare worker?: No Do you have indoor plumbing?: Yes Do you have electricity?: Yes Attestation statement:: This patient has been screened for Hepatitis A risk factors. Medical History: Reports:: Chronic Obstructive Pulmonary Disease (COPD) Denies:: Cancer, Diabetes Mellitus Type 1, Diabetes Mellitus Type 2, Internal Pacemaker, MRSA Other Medical History: Reports: Anemia, Arthritis, Sinus Problems, Other (RLS) Laterality Cases: Bilateral: Tonsillectomy Other Surgeries: Yes: Cholecystectomy, Hysterectomy-Total. No: Pacemaker Amputation: No Fractures: No - Social History Smoking Status: Current every day smoker Tobacco Type: cigarettes # Packs/Day (cigarettes): 1 #Yrs smoked (if former smoker): 52 Alcohol Intake: never Alcohol Intake Frequency:: holidays/special occasions only Occupational Status: retired Housing: house Household Members: spouse Family Hx:: Anemia, Heart Attack, Hypertension, Kidney Disease, Stroke ROS Obtained: Yes All systems reviewed & no additional complaints Physical Exam - General General appearance: alert, in distress (Patient is tachypneic and breathing at about 36 to 38 breaths/min. She is using her accessory muscles of respiration to breathe.) - Head Head exam: atraumatic, normocephalic, normal inspection - Eye Eye exam: Present: normal appearance, PERRL, EOMI - ENT ENT exam: Present: normal exam, normal oropharynx, mucous membranes moist, normal external ear exam - Neck Neck exam: Present: normal inspection, full ROM, trachea midline - Chest Chest inspection: Present: symmetric chest wall rise. Absent: tenderness - Respiratory Respiratory exam: Present: wheezes, accessory muscle use, prolonged expiratory phase, other (Apnea) - Cardiovascular Cardiovascular exam: Present: tachycardia - Abdominal Exam Abdominal exam: Present: soft. Absent: distention, tenderness, guarding - Extremities Exam Extremities exam: Present: normal inspection, full ROM, normal capillary refill. Absent: calf tenderness - Back Exam Back exam: Present: normal inspection. Absent: tenderness - Neurological Exam Neurological exam: Present: alert, oriented X3, CN II-XII intact - Psychiatric Psychiatric exam: Present: normal affect, normal mood - Skin Skin exam: Present: warm, dry, intact, normal color
[2019-03-16 22:48] LABS: Lymphocytes % 10 % (10-50); Neutrophils % 77 % (42-76); Total Cells Counted 100
[2019-03-16 22:49] LABS: Hypochromasia 1+; Rouleaux 1+; Toxic Granulation 2+
[2019-03-16 23:14] LABS: INR 0.88 (0.9-1.1); Prothrombin Time 9.2 seconds (9.4-11.8)
[2019-03-17 00:55] LABS: ABG Base Excess -4.8 mmol/L (-2.4-2.3); ABG HCO3 21.5 mmhg (22.0-26.0); ABG Oxygen Saturation 100 % (90-100); ABG PCO2 43.4 mmhg (35.0-45.0); ABG PH 7.31 mmol/L (7.35-7.45); ABG PO2 285.9 mmhg (80-100); ABG TCO2 22.8 mmhg (23-27); Oxygen 60 %
[2019-03-17 00:56] LABS: Allen's Test Y
[2019-03-17 03:02] LABS: Microscopic, Urine URINE MICROSCOPIC (MICROSCOPIC)
[2019-03-17 03:04] LABS: Appearance,Urine CLEAR (Clear); Bilirubin,Urine Negative (Negative); Blood, Urine 1+ (Negative); Color,Urine YELLOW (Yellow); Glucose,Urine (UA) Negative (Negative); Ketones,Urine Negative (Negative); Leukocyte Esterase,Urine Negative (Negative); PH,Urine 5.5 (5.0-8.5); Protein,Urine 2+ (Negative); Specific Gravity, Urine >= 1.030 (1.005-1.030); Urobilinogen,Urine 0.2 EU/dl (0.2)
[2019-03-17 03:06] LABS: Hyaline Casts,Urine Occasional #/lpf (0); RBC,Urine Occasional #/hpf (0-3); Squamous Epithelial Cell,Urine Occasional #/hpf (0-5); WBC,Urine Occasional #/hpf (0-3)
[2019-03-17 03:07] LABS: White Blood Cell Casts,Urine Occasional #/lpf (0)
[2019-03-17 04:58] LABS: Albumin Level 2.6 gm/dL (3.4-5.0); Albumin/Globulin Ratio 0.6 (1.1-1.8); Anion Gap 16.3 mEq/L (5-15); Bilirubin,Total 0.4 mg/dL (0.2-1.0); Calcium 8.5 mg/dL (8.5-10.1); Globulin 4.2 gm/dl (1.3-3.2); Total Protein,Serum 6.8 gm/dL (6.4-8.2)
[2019-03-17 07:18] LABS: ABG HCO3 21.4 mmhg (22.0-26.0); ABG Oxygen Saturation 97 % (90-100); ABG PH 7.36 mmol/L (7.35-7.45); ABG PO2 99.2 mmhg (80-100); ABG TCO2 22.6 mmhg (23-27)
[2019-03-17 07:48] LABS: Basophils % 0.2 % (0.1-2.0); Eosinophils # 0.3 K/mm3 (0.0-0.4); Eosinophils % 1.5 % (0.1-12.0); Hematocrit 41.5 % (37.0-47.0); Hemoglobin 13.1 g/dL (12.2-16.2); Lymphocytes # 1.4 K/mm3 (0.7-4.5); Lymphocytes % 7.3 % (10-50); Mean Corpuscular HGB Conc 31.5 g/dL (31.8-35.4); Mean Corpuscular Volume 87.6 fl (81-99); Mean Platelet Volume 8.3 fl (7.4-10.4); Monocytes # 0.4 K/mm3 (0.1-1.0); Neutrophils # 16.5 K/mm3 (1.8-7.8); Platelet Count 356 K/mm3 (142-424); Red Blood Count 4.74 M/mm3 (4.20-5.40); White Blood Count 18.6 K/mm3 (4.8-10.8)
--- NOTE | 2019-03-17 08:02 | Pharmacy Consult Notes ---
[facility] VTE Monitoring - Patient Demographics Admission date: 03/17/19 Report Date: 03/17/19 Time: 08:01 Allergies/Adverse Reactions: Patient Allergies No Known Allergies Allergy (Verified 03/16/19 21:58) Height: 1.5 m Weight: 64.949 kg Patient Problems: Current Active Problems Pneumonia (Acute) CAP (community acquired pneumonia) (Acute) Acute exacerbation of chronic obstructive airways disease (Acute) Severe sepsis (Acute) Pneumonia of both lower lobes (Acute) Acute respiratory failure with hypoxemia (Acute) Acute respiratory acidosis (Acute) Non-ST elevation (NSTEMI) myocardial infarction (Acute) Failure of outpatient treatment (Acute) - VTE Risk Labs: VTE Related Lab Results Hgb 13.1 g/dL (12.2-16.2) 03/17/19 07:35 Hct 41.5 % (37.0-47.0) 03/17/19 07:35 Plt Count 356 K/mm3 (142-424) 03/17/19 07:35 PT 9.2 seconds (9.4-11.8) L 03/16/19 22:00 INR 0.88 (0.9-1.1) L 03/16/19 22:00 BUN 13 mg/dL (7-18) 03/17/19 04:20 Creatinine 0.63 mg/dL (0.55-1.02) 03/17/19 04:20 Estimated Creat Clear 56 mL/min (50-200) 03/17/19 04:20 VTE Score: 4 VTE Risk Level: Low Risk - Prophylaxis VTE Prophylaxis Ordered?: Yes Types of VTE Prophylaxis: TEDS Knee High Location of Applied Device: Bilateral Lower Extremeties Pharmacologic Type: Enoxaparin
--- NOTE | 2019-03-17 08:10 | Pharmacy Consult Notes ---
- Pharmacy Consult Date: 03/17/19 Time: 08:09 Referring provider: DR. CADET Reason for Consult:: VANCOMYCIN DOSING Allergies and ADEs:: Allergies Allergy/AdvReac Type Severity Reaction Status Date / Time No Known Allergies Allergy Verified 03/16/19 21:58 Home Medications:: Home Medications Medication Instructions Recorded Confirmed Type Albuterol Sulfate [Albuterol 2.5 mg IH Q4HP PRN 30 Days #100 neb 07/07/17 03/16/19 Rx Sulfate 2.5mg/0.5ml Neb] Amoxicillin [Amoxicillin 500mg 500 mg PO BID 03/16/19 03/16/19 History Cap] Gabapentin [Gabapentin 300mg Cap] 300 mg PO DAILY 03/16/19 03/16/19 History predniSONE [Deltasone 20mg 20 mg PO DAILY 03/16/19 03/16/19 History tablet] Height: 1.5 m Weight: 64.949 kg Laboratory Results:: Laboratory Results - last 24 hr 03/16/19 22:00: WBC 20.9 H*, RBC 5.09, Hgb 14.1, Hct 47.8 H, MCV 93.9, MCH 27.7, MCHC 29.5 L, RDW 14.2, Plt Count 411, MPV 8.3, Neut % (Auto) 87.6 H, Lymph % (Auto) 6.4 L, [place] % (Auto) 5.2, Eos % (Auto) 0.6, Baso % (Auto) 0.2, Neut # (Auto) 18.3 H, Lymph # (Auto) 1.3, [place] # (Auto) 1.1 H, Eos # (Auto) 0.1, Baso # (Auto) 0.0, Total Counted 100, Neutrophils % (Manual) 77 H, Band Neutrophils % 13.0 H, Lymphocytes % (Manual) 10, Toxic Granulation 2+, Platelet Estimate Normal, Hypochromasia 1+, Rouleaux 1+ 03/16/19 22:00: Sodium 134 L, Potassium 4.5, Chloride 98, Carbon Dioxide 26, Anion Gap 14.5, BUN 12, Creatinine 0.71, Estimated Creat Clear 51, Estimated GFR 82, Est GFR ( Amer) 99, Glucose 160 H, Calcium 9.3, Total Bilirubin 0.5, AST 308 H*, ALT 276 H, Alkaline Phosphatase 188 H, Total Protein 7.6, Albumin 3.1 L, Globulin 4.5 H, Albumin/Globulin Ratio 0.7 L 03/16/19 22:00: Lactate 2.0 03/16/19 22:00: Influenza Type A Ag Negative, Influenza Type B Ag Negative 03/16/19 22:00: D-Dimer 1100 H* 03/16/19 22:00: Troponin I 0.63 H 03/16/19 22:00: B-Natriuretic Peptide 880 H 03/16/19 22:00: PT 9.2 L, INR 0.88 L 03/16/19 22:08: Specimen Source R/r, O2 % 4, ABG pH 7.25 L, ABG pCO2 45.7 H, ABG pO2 101.2 H, ABG HCO3 19.8 L, ABG Total CO2 21.2 L, ABG O2 Saturation 97, ABG Base Excess -7.4 L, Corey Test Y 03/17/19 00:53: Specimen Source R/r, O2 % 60, ABG pH 7.31 L, ABG pCO2 43.4, ABG pO2 285.9 H, ABG HCO3 21.5 L, ABG Total CO2 22.8 L, ABG O2 Saturation 100, ABG Base Excess -4.8 L, Corey Test Y, Vent Rate 22 03/17/19 01:15: Troponin I 1.21 H 03/17/19 02:53: Urine Color Yellow, Urine Appearance Clear, Urine pH 5.5, Ur Specific [place] >= 1.030, Urine Protein 2+, Urine Glucose (UA) Negative, Urine Ketones Negative, Urine Blood 1+, Urine Nitrate Negative, Urine Bilirubin Negative, Urine Urobilinogen 0.2, Ur Leukocyte Esterase Negative, Urine RBC Occasional, Urine WBC Occasional, Ur Squamous Epith Cells Occasional, Hyaline Casts Occasional, WBC Casts Occasional 03/17/19 03:36: POC Glucose 160 H 03/17/19 04:20: Sodium 135 L, Potassium 4.3, Chloride 101, Carbon Dioxide 22, Anion Gap 16.3 H, BUN 13, Creatinine 0.63, Estimated Creat Clear 56, Estimated GFR 94, Est GFR ( Amer) 114, Glucose 169 H, Calcium 8.5, Magnesium 2.9 H, Total Bilirubin 0.4, AST 259 H, ALT 280 H, Alkaline Phosphatase 176 H, Troponin I 1.06 H, Total Protein 6.8, Albumin 2.6 L D, Globulin 4.2 H, Albumin/Globulin Ratio 0.6 L 03/17/19 04:20: Lactate 2.6 H 03/17/19 07:03: ABG pH 7.36, ABG pCO2 39.0, ABG pO2 99.2, ABG HCO3 21.4 L, ABG Total CO2 22.6 L, ABG O2 Saturation 97, ABG Base Excess -4.0 L 03/17/19 07:35: WBC 18.6 H, RBC 4.74, Hgb 13.1, Hct 41.5, MCV 87.6, MCH 27.6, MCHC 31.5 L, RDW 14.0, Plt Count 356, MPV 8.3, Neut % (Auto) 89.0 H, Lymph % (Auto) 7.3 L, [place] % (Auto) 2.0, Eos % (Auto) 1.5, Baso % (Auto) 0.2, Neut # (Auto) 16.5 H, Lymph # (Auto) 1.4, [place] # (Auto) 0.4, Eos # (Auto) 0.3, Baso # (Auto) 0.0 Medical History: Reports:: Chronic Obstructive Pulmonary Disease (COPD) Denies:: Cancer, Diabetes Mellitus Type 1, Diabetes Mellitus Type 2, Internal Pacemaker, MRSA Assessment and Plan - Assessment and plan all Dx Assessment and Plan for all problems:: BASED ON PATIENT FACTORS, RECOMMEND VANCOMYCIN 1GM IV Q18H. WILL OBTAIN VANCOMYCIN TROUGH LEVEL PRIOR TO 4TH DOSE. PHARMACY WILL FOLLOW DAILY AND ADJUST APPROPRIATE.
--- NOTE | 2019-03-17 08:22 | Consult Report ---
History of Present Illness Consult date: 03/17/19 Requesting physician: Raleigh Valentine Chief complaint: elevated troponins Additional Medical History:: 1. Severe COPD A. Continued tobacco use B. Respiratory failure and sepsis, 03/2019 2. Elevated LFTs, 03/2019 3. Elevated troponins, 03/2019 History of present illness: 68-year-old female presents with chief complaint of having shortness of breath for the last 3 to 4 days. She states she had been to her primary care provider and was started on antibiotics along with steroids for the last 3 days. Her symptoms have not been getting better but actually getting worse. She has been coughing up thick greenish sputum. Has not noticed any fever but complains of feeling generalized weakness. Her shortness of breath has been getting worse today. She feels like exhausted. Complains of generalized discomfort. She has a history of COPD. She smokes about a 1 pack a day. Denies using oxygen at home. Denies having any acute chest pain. Denies having nausea or vomiting. Denies having any fall or injury. The above per Dr. Benitez Patient is in bed on BiPAP therapy and reports that she is breathing better. She denies any chest pain at this time. No prior history of coronary artery disease. She does continue to smoke prior to hospitalization. Cardiology consulted for elevated troponins Preliminary echocardiogram this morning shows ejection fraction of approximately 50% with mild mitral and aortic regurgitation. Her right ventricular systolic pressure is 70 mmHg with mild to moderate tricuspid regurgitation. [facility] History Medical History: Reports:: Chronic Obstructive Pulmonary Disease (COPD) Denies:: Cancer, Diabetes Mellitus Type 1, Diabetes Mellitus Type 2, Internal Pacemaker, MRSA *Have you ever received a pneumonia vaccine?: Yes (03-11-2019) *Have you received a flu vaccine this season?: Yes (03-11-2019) Other Medical History: Reports: Anemia, Arthritis, Sinus Problems, Other (RLS) Laterality Cases: Bilateral: Tonsillectomy Other Surgeries: Yes: Cholecystectomy, Hysterectomy-Total. No: Pacemaker Amputation: No Fractures: No - *Social History Smoking Status: Current every day smoker Tobacco Type: cigarettes # Packs/Day (cigarettes): 1 #Yrs smoked (if former smoker): 52 Alcohol Intake: current Alcohol Intake Frequency:: holidays/special occasions only *Occupational Status:: retired Housing: house Household Members: spouse *Travel in the last 8 weeks: None Family Hx:: Anemia, Heart Attack, Hypertension, Kidney Disease, Stroke Meds Home Medications Medication Instructions Recorded Confirmed Type Albuterol Sulfate [Albuterol 2.5 mg IH Q4HP PRN 30 Days #100 neb 07/07/17 03/16/19 Rx Sulfate 2.5mg/0.5ml Neb] Amoxicillin [Amoxicillin 500mg 500 mg PO BID 03/16/19 03/16/19 History Cap] Gabapentin [Gabapentin 300mg Cap] 600 mg PO HS 03/16/19 03/17/19 History predniSONE [Deltasone 20mg 20 mg PO DAILY 03/16/19 03/16/19 History tablet] Fluoxetine HCl 10 mg PO DAILY 03/17/19 03/17/19 History Pramipexole Di-HCl [Mirapex] 0.5 mg PO HS 03/17/19 03/17/19 History Allergies Allergy/AdvReac Type Severity Reaction Status Date / Time No Known Allergies Allergy Verified 03/16/19 21:58 Review of Systems - Review of Systems Review of systems:: pertinent systems reviewed and negative unless documented below - *Cardiovascular Reports shortness of breath, Reports shortness of breath with activity, Denies chest pain - *Respiratory Reports shortness of breath - *Gastrointestinal Denies abdominal pain, Denies nausea, Denies vomiting - *Musculoskeletal Denies joint pain, Denies back pain Exam Vital signs and Labs for Last 24 Hours: Temp Pulse Resp BP Pulse Ox 97.6 F 94 H 28 H 139/89 95 03/17/19 06:00 03/17/19 07:00 03/17/19 07:00 03/17/19 07:00 03/17/19 07:00 Laboratory Results - last 24 hr 03/16/19 22:00: WBC 20.9 H*, RBC 5.09, Hgb 14.1, Hct 47.8 H, MCV 93.9, MCH 27.7, MCHC 29.5 L, RDW 14.2, Plt Count 411, MPV 8.3, Neut % (Auto) 87.6 H, Lymph % (Auto) 6.4 L, [place] % (Auto) 5.2, Eos % (Auto) 0.6, Baso % (Auto) 0.2, Neut # ( Auto) 18.3 H, Lymph # (Auto) 1.3, [place] # (Auto) 1.1 H, Eos # (Auto) 0.1, Baso # (Auto) 0.0, Total Counted 100, Neutrophils % (Manual) 77 H, Band Neutrophils % 13.0 H, Lymphocytes % (Manual) 10, Toxic Granulation 2+, Platelet Estimate Normal, Hypochromasia 1+, Rouleaux 1+ 03/16/19 22:00: Sodium 134 L, Potassium 4.5, Chloride 98, Carbon Dioxide 26, Anion Gap 14.5, BUN 12, Creatinine 0.71, Estimated Creat Clear 51, Estimated GFR 82, Est GFR ( Amer) 99, Glucose 160 H, Calcium 9.3, Total Bilirubin 0.5, AST 308 H*, ALT 276 H, Alkaline Phosphatase 188 H, Total Protein 7.6, Albumin 3.1 L, Globulin 4.5 H, Albumin/Globulin Ratio 0.7 L 03/16/19 22:00: Lactate 2.0 03/16/19 22:00: Influenza Type A Ag Negative, Influenza Type B Ag Negative 03/16/19 22:00: D-Dimer 1100 H* 03/16/19 22:00: Troponin I 0.63 H 03/16/19 22:00: B-Natriuretic Peptide 880 H 03/16/19 22:00: PT 9.2 L, INR 0.88 L 03/16/19 22:08: Specimen Source R/r, O2 % 4, ABG pH 7.25 L, ABG pCO2 45.7 H, ABG pO2 101.2 H, ABG HCO3 19.8 L, ABG Total CO2 21.2 L, ABG O2 Saturation 97, ABG Base Excess -7.4 L, Corey Test Y 03/17/19 00:53: Specimen Source R/r, O2 % 60, ABG pH 7.31 L, ABG pCO2 43.4, ABG pO2 285.9 H, ABG HCO3 21.5 L, ABG Total CO2 22.8 L, ABG O2 Saturation 100, ABG Base Excess -4.8 L, Corey Test Y, Vent Rate 22 03/17/19 01:15: Troponin I 1.21 H 03/17/19 02:53: Urine Color Yellow, Urine Appearance Clear, Urine pH 5.5, Ur Specific [place] >= 1.030, Urine Protein 2+, Urine Glucose (UA) Negative, Urine Ketones Negative, Urine Blood 1+, Urine Nitrate Negative, Urine Bilirubin Negative, Urine Urobilinogen 0.2, Ur Leukocyte Esterase Negative, Urine RBC Occasional, Urine WBC Occasional, Ur Squamous Epith Cells Occasional, Hyaline Casts Occasional, WBC Casts Occasional 03/17/19 03:36: POC Glucose 160 H 03/17/19 04:20: Sodium 135 L, Potassium 4.3, Chloride 101, Carbon Dioxide 22, Anion Gap 16.3 H, BUN 13, Creatinine 0.63, Estimated Creat Clear 56, Estimated GFR 94, Est GFR ( Amer) 114, Glucose 169 H, Calcium 8.5, Magnesium 2.9 H, Total Bilirubin 0.4, AST 259 H, ALT 280 H, Alkaline Phosphatase 176 H, Troponin I 1.06 H, Total Protein 6.8, Albumin 2.6 L D, Globulin 4.2 H, Albumin/Globulin Ratio 0.6 L 03/17/19 04:20: Lactate 2.6 H 03/17/19 07:03: ABG pH 7.36, ABG pCO2 39.0, ABG pO2 99.2, ABG HCO3 21.4 L, ABG Total CO2 22.6 L, ABG O2 Saturation 97, ABG Base Excess -4.0 L 03/17/19 07:35: WBC 18.6 H, RBC 4.74, Hgb 13.1, Hct 41.5, MCV 87.6, MCH 27.6, MCHC 31.5 L, RDW 14.0, Plt Count 356, MPV 8.3, Neut % (Auto) 89.0 H, Lymph % (Auto) 7.3 L, Mcintosh % (Auto) 2.0, Eos % (Auto) 1.5, Baso % (Auto) 0.2, Neut # (Auto) 16.5 H, Lymph # (Auto) 1.4, [place] # (Auto) 0.4, Eos # (Auto) 0.3, Baso # (Auto) 0.0 I & O for Last 24 hours: Intake & Output 03/14/19 03/15/19 03/16/19 03/17/19 11:59 11:59 11:59 11:59 Intake Total 1760 / 1760 Output Total 300 / 300 Balance 1460 / 1460 Weight 143 lb 3 oz Microbiology Reports for the Last 24 Hours: Microbiology 03/16/19 23:49 Sputum - Expectorated Sputum Gram Stain - Final - *Routine HEENT Exam Head: Present: normocephalic Eye: Present: EOMI, PERRL ENT: Present: mucous membranes moist - *Routine Neck Exam Present: supple. Absent: JVD, carotid bruit - *Routine Respiratory Exam Present: decreased breath sounds, diminished air movement. Absent: accessory muscle use, rales, rhonchi, wheezes - *Routine Cardiovascular Exam Present: RRR. Absent: murmur, gallop, rubs - *Routine Abdominal Exam Present: soft. Absent: tenderness, distended, guarding - *Routine Extremities Exam Absent: edema, calf tenderness - *Routine Neurological Exam Present: alert, oriented X3, moving all extremities Assessment and Plan (1) Acute exacerbation of chronic obstructive airways disease Current visit: Yes Status: Acute Category: Medical Code(s): J44.1 - Chronic obstructive pulmonary disease with (acute) exacerbation (2) Acute respiratory failure with hypoxemia Current visit: Yes Status: Acute Category: Medical Code(s): J96.01 - Acute respiratory failure with hypoxia (3) Failure of outpatient treatment Current visit: Yes Status: Acute Category: Medical Code(s): Z78.9 - Other specified health status (4) Non-ST elevation (NSTEMI) myocardial infarction Current visit: Yes Status: Acute Category: Medical Code(s): I21.4 - Non-ST elevation (NSTEMI) myocardial infarction (5) Hyponatremia Current visit: No Status: Acute Category: Medical Code(s): E87.1 - Hypo- osmolality and hyponatremia - Assessment and plan all Dx Assessment and Plan for all problems:: 1. Acute respiratory failure with hypoxemia and non-ST elevation MO. Patient's respiratory status is improving on BiPAP and medical therapy. Patient will need right and left heart catheterization to further evaluate for coronary artery disease and pulmonary status. We will tentatively plan to do this tomorrow, 03/18/2019. Continue Lovenox therapy today and hold tomorrow. 2. Congestive heart failure on chest x-ray with elevated BNP of 880, will give a dose of IV Lasix today. Hold on beta salud at this time due to respiratory failure. Will add low dose ARB. 3. Elevated LFT's, likely related to liver congestion/CHF. 4. Pulmonary HTN, severe by echo with RVSP of 70 mm Hg. Continue diuresis. 5. Hyponatremia, continue to monitor while on diuretics.
--- NOTE | 2019-03-17 08:57 | History & Physical Report ---
*Admission Date: 03/17/19 *Chief complaint: Shortness of air, respiratory distress *History of present illness: 68-year-old white female, normally sees Dr. Trejo, with severe COPD, significant kyphosis and history of heart disease who continues to smoke heavily, presented to the emergency department late yesterday evening with severe shortness of air, was found to be significantly hypoxic, tachycardic, tachypneic and in respiratory distress. Patient actually refused intubation according to ER notes, and was placed on BiPAP with some improvement in her respiratory acidosis. Chest x-ray revealed evidence of pneumonia, COPD exacerbation and she was found to have evidence of non-STEMI with elevated cardiac enzymes. Admitted to intensive care unit on BiPAP with cardiology consultation pending. This morning the patient states she feels somewhat better, is alert and able to respond to questions. [facility] History I have reviewed the patient's past medical history: Yes Medical History: Reports:: Chronic Obstructive Pulmonary Disease (COPD) Denies:: Cancer, Diabetes Mellitus Type 1, Diabetes Mellitus Type 2, Internal Pacemaker, MRSA *Have you ever received a pneumonia vaccine?: Yes (03-11-2019) *Have you received a flu vaccine this season?: Yes (03-11-2019) Other Medical History: Reports: Anemia, Arthritis, Sinus Problems, Other (RLS) Laterality Cases: Bilateral: Tonsillectomy Other Surgeries: Yes: Cholecystectomy, Hysterectomy-Total. No: Pacemaker Amputation: No Fractures: No - *Social History Smoking Status: Current every day smoker Tobacco Type: cigarettes # Packs/Day (cigarettes): 1 #Yrs smoked (if former smoker): 52 Alcohol Intake: current Alcohol Intake Frequency:: holidays/special occasions only *Occupational Status:: retired Housing: house Household Members: spouse *Travel in the last 8 weeks: None Family Hx:: Anemia, Heart Attack, Hypertension, Kidney Disease, Stroke Review of Systems - Review of Systems Review of systems:: pertinent systems reviewed and negative unless documented below Significant respiratory review of systems as noted above. Patient unable to provide a lot more details because of her dyspnea and current status on BiPAP. Meds Home Medications Medication Instructions Recorded Confirmed Type Albuterol Sulfate [Albuterol 2.5 mg IH Q4HP PRN 30 Days #100 neb 07/07/17 03/16/19 Rx Sulfate 2.5mg/0.5ml Neb] Amoxicillin [Amoxicillin 500mg 500 mg PO BID 03/16/19 03/16/19 History Cap] Gabapentin [Gabapentin 300mg Cap] 600 mg PO HS 03/16/19 03/17/19 History predniSONE [Deltasone 20mg 20 mg PO DAILY 03/16/19 03/16/19 History tablet] Fluoxetine HCl 10 mg PO DAILY 03/17/19 03/17/19 History Pramipexole Di-HCl [Mirapex] 0.5 mg PO HS 03/17/19 03/17/19 History Allergies Allergy/AdvReac Type Severity Reaction Status Date / Time No Known Allergies Allergy Verified 03/16/19 21:58 Exam Vital signs and Labs for Last 24 Hours: Temp Pulse Resp BP Pulse Ox 97.6 F 94 H 28 H 139/89 95 03/17/19 06:00 03/17/19 07:00 03/17/19 07:00 03/17/19 07:00 03/17/19 07:00 Laboratory Results - last 24 hr 03/16/19 22:00: WBC 20.9 H*, RBC 5.09, Hgb 14.1, Hct 47.8 H, MCV 93.9, MCH 27.7, MCHC 29.5 L, RDW 14.2, Plt Count 411, MPV 8.3, Neut % (Auto) 87.6 H, Lymph % (Auto) 6.4 L, [place] % (Auto) 5.2, Eos % (Auto) 0.6, Baso % (Auto) 0.2, Neut # (Auto) 18.3 H, Lymph # (Auto) 1.3, [place] # (Auto) 1.1 H, Eos # (Auto) 0.1, Baso # (Auto) 0.0, Total Counted 100, Neutrophils % (Manual) 77 H, Band Neutrophils % 13.0 H, Lymphocytes % (Manual) 10, Toxic Granulation 2+, Platelet Estimate Normal, Hypochromasia 1+, Rouleaux 1+ 03/16/19 22:00: Sodium 134 L, Potassium 4.5, Chloride 98, Carbon Dioxide 26, Anion Gap 14.5, BUN 12, Creatinine 0.71, Estimated Creat Clear 51, Estimated GFR 82, Est GFR ( Amer) 99, Glucose 160 H, Calcium 9.3, Total Bilirubin 0.5, AST 308 H*, ALT 276 H, Alkaline Phosphatase 188 H, Total Protein 7.6, Albumin 3.1 L, Globulin 4.5 H, Albumin/Globulin Ratio 0.7 L 03/16/19 22:00: Lactate 2.0 03/16/19 22:00: Influenza Type A Ag Negative, Influenza Type B Ag Negative 03/16/19 22:00: D-Dimer 1100 H* 03/16/19 22:00: Troponin I 0.63 H 03/16/19 22:00: B-Natriuretic Peptide 880 H 03/16/19 22:00: PT 9.2 L, INR 0.88 L 03/16/19 22:08: Specimen Source R/r, O2 % 4, ABG pH 7.25 L, ABG pCO2 45.7 H, ABG pO2 101.2 H, ABG HCO3 19.8 L, ABG Total CO2 21.2 L, ABG O2 Saturation 97, ABG Base Excess -7.4 L, Corey Test Y 03/17/19 00:53: Specimen Source R/r, O2 % 60, ABG pH 7.31 L, ABG pCO2 43.4, ABG pO2 285.9 H, ABG HCO3 21.5 L, ABG Total CO2 22.8 L, ABG O2 Saturation 100, ABG Base Excess -4.8 L, Corey Test Y, Vent Rate 22 03/17/19 01:15: Troponin I 1.21 H 03/17/19 02:53: Urine Color Yellow, Urine Appearance Clear, Urine pH 5.5, Ur Specific [place] >= 1.030, Urine Protein 2+, Urine Glucose (UA) Negative, Urine Ketones Negative, Urine Blood 1+, Urine Nitrate Negative, Urine Bilirubin Negative, Urine Urobilinogen 0.2, Ur Leukocyte Esterase Negative, Urine RBC Oc casional, Urine WBC Occasional, Ur Squamous Epith Cells Occasional, Hyaline Casts Occasional, WBC Casts Occasional 03/17/19 03:36: POC Glucose 160 H 03/17/19 04:20: Sodium 135 L, Potassium 4.3, Chloride 101, Carbon Dioxide 22, Anion Gap 16.3 H, BUN 13, Creatinine 0.63, Estimated Creat Clear 56, Estimated GFR 94, Est GFR ( Amer) 114, Glucose 169 H, Calcium 8.5, Magnesium 2.9 H, Total Bilirubin 0.4, AST 259 H, ALT 280 H, Alkaline Phosphatase 176 H, Troponin I 1.06 H, Total Protein 6.8, Albumin 2.6 L D, Globulin 4.2 H, Albumin/Globulin Ratio 0.6 L 03/17/19 04:20: Lactate 2.6 H 03/17/19 07:03: ABG pH 7.36, ABG pCO2 39.0, ABG pO2 99.2, ABG HCO3 21.4 L, ABG Total CO2 22.6 L, ABG O2 Saturation 97, ABG Base Excess -4.0 L 03/17/19 07:35: WBC 18.6 H, RBC 4.74, Hgb 13.1, Hct 41.5, MCV 87.6, MCH 27.6, MCHC 31.5 L, RDW 14.0, Plt Count 356, MPV 8.3, Neut % (Auto) 89.0 H, Lymph % (Auto) 7.3 L, [place] % (Auto) 2.0, Eos % (Auto) 1.5, Baso % (Auto) 0.2, Neut # (Auto) 16.5 H, Lymph # (Auto) 1.4, [place] # (Auto) 0.4, Eos # (Auto) 0.3, Baso # (Auto) 0.0 I & O for Last 24 hours: Intake & Output 03/14/19 03/15/19 03/16/19 03/17/19 11:59 11:59 11:59 11:59 Intake Total 1760 / 1760 Output Total 300 / 300 Balance 1460 / 1460 Weight 143 lb 3 oz Microbiology Reports for the Last 24 Hours: Microbiology 03/16/19 23:49 Sputum - Expectorated Sputum Gram Stain - Final Narrative: Patient is awake, alert. Able to respond to commands. On BiPAP. No JVD. Oropharynx appears moist and clear. No cranial nerve deficits. Has rhonchi and crackles in all lung pelayo. Somewhat obscured by BiPAP sounds. Heart rate regular, again's obscured exam by BiPAP sounds and noisy crackles and rales in lungs. Abdomen soft. Extremities with cold temperature noted. Patient states this is her baseline. Pulses are present but diminished. She has changes of arthritis in her feet and hands. No evidence of joint inflammation or synovitis. Able to move extremities well but is globally weak. Assessment and Plan (1) Acute exacerbation of chronic obstructive airways disease Current visit: Yes Status: Acute Category: Medical Code(s): J44.1 - Chronic obstructive pulmonary disease with (acute) exacerbation Significant exacerbation. Agree with admission with respiratory support, we will try to wean off BiPAP today to Ventimask and possible Vapotherm device if needed for patient comfort and the fact that she has had a normalized blood gases at this point. (2) Acute respiratory failure with hypoxemia Current visit: Yes Status: Acute Category: Medical Code(s): J96.01 - Acute respiratory failure with hypoxia (3) Failure of outpatient treatment Current visit: Yes Status: Acute Category: Medical Code(s): Z78.9 - Other specified health status (4) Non-ST elevation (NSTEMI) myocardial infarction Current visit: Yes Status: Acute Category: Medical Code(s): I21.4 - Non-ST elevation (NSTEMI) myocardial infarction Cardiology evaluation today. (5) Hyponatremia Current visit: No Status: Acute Category: Medical Code(s): E87.1 - Hypo- osmolality and hyponatremia - Assessment and plan all Dx Assessment and Plan for all problems:: Please note 1 hour of critical care time including record review,
[2019-03-17 10:08] LABS: Lymphocytes % 11 % (10-50); Monocytes % 7 % (2-9); Neutrophils % 82 % (42-76); RBC Morphology Normal; Total Cells Counted 100
--- NOTE | 2019-03-18 06:08 | Cardiology Report ---
APPROVED REPORT EXAM: Comprehensive 2D, Doppler, and color-flow Echocardiogram Product Evangelist: Daniela Hardin RDCS Ht: 5 ft 0 in Wt: 130lbs BSA: 1.55 BP: 155/74 mmHg Indications: Shortness of Breath,BIPAP,RESP FAILURE,COPD 2D Dimensions LVOT 1.55 cm (M/F) 1.5-2.5 M-Mode Dimensions RVDd 1.85 cm (0.9-2.6)LVDd 4.10 cm (3.5-5.7) LVDs 3.29 cm (3.5-5.7)IVSd 0.72 cm (0.6-1.1) PWd 0.66 cm (0.6-1.1)EF (Teich) 41.00% FS 19.80% EDV (Teich) 74.20 mL ESV (Teich) 43.80 mL LV Diastology E/A Ratio 1.32 Mitral Valve MV A Velocity 50.00 (40-130 cm/s) Left Ventricle Left atrium is mildly enlarged, left ventricle is normal size, mild concentric left ventricular hypertrophy, visually estimated ejection fraction approximately 40 to 45%, there is marked hypokinesis involving the basal septum and inferior basal wall. Diastolic parameters are inconclusive. Right Ventricle Right atrium and right ventricular mildly enlarged with normal contractility. Aortic Valve Aortic valve is thickened and calcified there is no aortic stenosis, there is mild aortic insufficiency. Mitral Valve Mitral valve leaflets are minimally thickened, there is mild mitral regurgitation. Tricuspid Valve Tricuspid valve is minimally thickened, there is moderate tricuspid regurgitation, calculated right ventricular systolic pressure 69 mmHg. Pulmonic Valve Pulmonic valve is poorly visualized. Great Vessels Aortic root is normal size. Pericardium No significant pericardial effusion noted. Conclusion 1. Biatrial enlargement, normal left ventricular size, mild concentric left ventricular hypertrophy, visually estimated ejection fraction 40 to 45% with multiple segmental wall motion abnormality described above, diastolic parameters are inconclusive. 2. Mildly enlarged right ventricle with normal contractility. 3. Mild mitral and moderate tricuspid regurgitation, calculated right ventricular systolic pressure is 69 mmHg. 4. No significant pericardial effusion noted. Electronically signed by : Solitario Richter, 03/18/2019 06:07:53
--- NOTE | 2019-03-18 07:59 | Progress Note ---
Internal Medicine - PN: Subj *Date: 03/18/19 *Time: 08:35 Interval history: Somewhat better this morning. Tolerated Venti for several hours this morning. Mentating more clearly with some decrease in respiratory distress. Wore BiPAP overnight while she slept. Denies any new chest pain or pressure. Is anxious about possible heart cath today. States she cannot lay flat due to anxiety and shortness of breath. Has diuresed well with -1 L in the past 24 hours. Denies fever, normotensive. No diarrhea or emesis. Productive cough when not on BiPAP. Exam Vital signs and Labs for Last 24 Hours: Temp Pulse Resp BP Pulse Ox 97.1 F L 78 18 176/89 H 98 03/18/19 03:59 03/18/19 06:00 03/18/19 06:00 03/18/19 06:00 03/18/19 06:00 Laboratory Results - last 24 hr 03/17/19 06:33: POC Glucose 147 H 03/17/19 07:35: Total Counted 100, Neutrophils % (Manual) 82 H, Lymphocytes % (Manual) 11, Monocytes % (Manual) 7, Platelet Estimate Normal, RBC Morphology Normal 03/17/19 11:52: POC Glucose 146 H 03/17/19 14:55: Troponin I 0.68 H 03/17/19 16:54: POC Glucose 140 H 03/17/19 20:12: POC Glucose 131 H 03/17/19 20:56: Troponin I 0.57 H I & O for Last 24 hours: Intake & Output 03/15/19 03/16/19 03/17/19 03/18/19 23:59 23:59 23:59 23:59 Intake Total 1760 / 1760 Output Total 1835 / 1835 300 / 300 Balance -75 / -75 -300 / -300 Weight 58.967 kg 64.949 kg Narrative: Patient is awake, alert, oriented to person and place. Able to respond to commands and answer questions appropriately On Venturi mask for exam.. No JVD. Oropharynx appears moist and clear. No cranial nerve deficits. Has interval improvement in exam, crackles in posterior lung pelayo lower lobes. Mild diffuse wheeze. No rhonchi appreciated Heart rate regular, no murmur Abdomen soft. Sounds active Extremities warm, well-perfused. Pulses are present but diminished. She has changes of arthritis in her feet and hands. No evidence of joint inflammation or synovitis. Able to move extremities well but is globally weak. Assessment and Plan (1) Acute exacerbation of chronic obstructive airways disease Current visit: Yes Status: Acute Category: Medical Code(s): J44.1 - Chronic obstructive pulmonary disease with (acute) exacerbation (2) Acute respiratory failure with hypoxemia Current visit: Yes Status: Acute Category: Medical Code(s): J96.01 - Acute respiratory failure with hypoxia (3) Failure of outpatient treatment Current visit: Yes Status: Acute Category: Medical Code(s): Z78.9 - Other specified health status (4) Non-ST elevation (NSTEMI) myocardial infarction Current visit: Yes Status: Acute Category: Medical Code(s): I21.4 - Non-ST elevation (NSTEMI) myocardial infarction (5) Hyponatremia Current visit: No Status: Acute Category: Medical Code(s): E87.1 - Hypo- osmolality and hyponatremia (6) Severe sepsis Current visit: Yes Status: Acute Category: Medical Code(s): A41.9 - Sepsis, unspecified organism; R65.20 - Severe sepsis without septic shock Present on admission. Patient had leukocytosis, tachycardia, respiratory failure, abnormal liver enzymes. Suspect source of infection with pneumonia versus heart failure exacerbation. Monitor for improvement with antibiotics and diuresis. Symptoms improving at this time but not resolved. Hemodynamically stable. - Assessment and plan all Dx Assessment and Plan for all problems:: 68-year-old female who presented with severe sepsis and acute hypoxemic respiratory failure and non-STEMI/CHF. Doing better with diuresis. Cardiology consulted, appreciate recommendations. Anticipate patient going to the [facility] today for diagnostic intervention. Will continue diuresis. Continue respiratory support as ordered with de-escalation when appropriate. Goal sats greater than 92 while awake, greater than 88 while asleep. Will increase regularity of breathing treatments as well in the setting of patient being globally wheezy. Patient overall is very ill, concern for respiratory failure, CHF exacerbation, liver injury, indicative of multiorgan system injury/failure. Condition serious, prognosis poor. Will allow p.o. intake with a cardiac diet after heart cath. Continues to require inpatient treatment.
--- NOTE | 2019-03-18 09:22 | Progress Note ---
Subjective Date: 03/18/19 Time: 09:18 Principal diagnosis: CHF, Cardiomyopathy, NSTEMI Interval history: Anxious 68 yo WF in bed with Oxygen by venti-mask. Denies chest pain but nervous about having to lie down for heart cath. Exam Vital signs and Labs for Last 24 Hours: Temp Pulse Resp BP Pulse Ox 97.1 F L 78 18 176/89 H 98 03/18/19 03:59 03/18/19 09:07 03/18/19 06:00 03/18/19 06:00 03/18/19 06:00 Laboratory Results - last 24 hr 03/17/19 07:35: Total Counted 100, Neutrophils % (Manual) 82 H, Lymphocytes % (Manual) 11, Monocytes % (Manual) 7, Platelet Estimate Normal, RBC Morphology Normal 03/17/19 11:52: POC Glucose 146 H 03/17/19 14:55: Troponin I 0.68 H 03/17/19 16:54: POC Glucose 140 H 03/17/19 20:12: POC Glucose 131 H 03/17/19 20:56: Troponin I 0.57 H I & O for Last 24 hours: Intake & Output 03/15/19 03/16/19 03/17/19 03/18/19 11:59 11:59 11:59 11:59 Intake Total 1760 / 1760 0 / 0 Output Total 1285 / 1285 1700 / 1700 Balance 475 / 475 -1700 / -1700 Weight 143 lb 3 oz - *Routine Respiratory Exam Present: decreased breath sounds, rales, diminished air movement. Absent: accessory muscle use, rhonchi, wheezes - *Routine Cardiovascular Exam Present: RRR. Absent: murmur, gallop, rubs - *Routine Extremities Exam Absent: edema, calf tenderness - *Routine Neurological Exam Present: alert, oriented X3, moving all extremities Progress Note: A&P (1) Acute exacerbation of chronic obstructive airways disease Status: Acute Current Visit: Yes (2) Acute respiratory failure with hypoxemia Status: Acute Current Visit: Yes (3) Failure of outpatient treatment Status: Acute Current Visit: Yes (4) Non-ST elevation (NSTEMI) myocardial infarction Status: Acute Current Visit: Yes (5) Hyponatremia Status: Acute Current Visit: No Assessment and Plan for All Diagnoses:: 1. Proceed with Right and left heart cath today for systolic CHF, cardiomyopathy and NSTEMI. Suspect component of diastolic dysfunction also due to nursing home COPD. 2. Further recommendations to follow 3. Will increase avapro to 75 mg daily 4. She received another dose of lasix this AM
[2019-03-19 06:14] LABS: Basophils # 0.1 K/mm3 (0-0.2); Basophils % 0.7 % (0.1-2.0); Eosinophils # 0.1 K/mm3 (0.0-0.4); Eosinophils % 0.7 % (0.1-12.0); Hematocrit 40.6 % (37.0-47.0); Hemoglobin 13.3 g/dL (12.2-16.2); Lymphocytes # 2.1 K/mm3 (0.7-4.5); Lymphocytes % 11.2 % (10-50); Mean Corpuscular HGB Conc 32.7 g/dL (31.8-35.4); Mean Corpuscular Volume 88.5 fl (81-99); Mean Platelet Volume 8.1 fl (7.4-10.4); Monocytes # 0.4 K/mm3 (0.1-1.0); Neutrophils # 15.8 K/mm3 (1.8-7.8); Neutrophils % 85.4 % (37.0-80.0); Platelet Count 378 K/mm3 (142-424); Red Blood Count 4.58 M/mm3 (4.20-5.40); White Blood Count 18.5 K/mm3 (4.8-10.8)
[2019-03-19 06:19] LABS: Anion Gap 9.7 mEq/L (5-15); Calcium 8.4 mg/dL (8.5-10.1)
--- NOTE | 2019-03-19 08:25 | Progress Note ---
Internal Medicine - PN: Subj *Date: 03/19/19 *Time: 08:23 Interval history: Patient did well overnight, has been successfully weaned down to nasal cannula. She is pleasant and talkative today, but appears significantly weak and feels very tired. Exam Vital signs and Labs for Last 24 Hours: Temp Pulse Resp BP Pulse Ox 98.3 F 88 19 142/73 H 92 L 03/18/19 20:45 03/19/19 06:00 03/18/19 20:45 03/19/19 06:00 03/19/19 06:00 Laboratory Results - last 24 hr 03/18/19 05:43: POC Glucose 127 H 03/18/19 12:15: POC Glucose 125 H 03/18/19 16:20: ABG O2 Sat (Measured) 67.9 L, POC VBG O2 Sat (Lacey) 69.2 L 03/18/19 22:12: POC Glucose 138 H 03/19/19 05:54: WBC 18.5 H, RBC 4.58, Hgb 13.3, Hct 40.6, MCV 88.5, MCH 29.0, MCHC 32.7, RDW 14.0, Plt Count 378, MPV 8.1, Neut % (Auto) 85.4 H, Lymph % (Auto) 11.2, [place] % (Auto) 2.0, Eos % (Auto) 0.7, Baso % (Auto) 0.7, Neut # (Auto) 15.8 H, Lymph # (Auto) 2.1, [place] # (Auto) 0.4, Eos # (Auto) 0.1, Baso # (Auto) 0.1 03/19/19 05:54: Sodium 133 L, Potassium 4.7, Chloride 98, Carbon Dioxide 30 D, Anion Gap 9.7, BUN 39 H D, Creatinine 0.84 D, Estimated Creat Clear 56, Estimated GFR 68, Est GFR ( Amer) 82 D, Glucose 178 H, Calcium 8.4 L I & O for Last 24 hours: Intake & Output 03/16/19 03/17/19 03/18/19 03/19/19 11:59 11:59 11:59 11:59 Intake Total 1760 / 1760 0 / 0 763 / 763 Output Total 1285 / 1285 1700 / 1700 2150 / 2150 Balance 475 / 475 -1700 / -1700 -1387 / -1387 Weight 143 lb 3 oz 143 lb 3.008 oz Microbiology Reports for the Last 24 Hours: Microbiology 03/16/19 22:00 Blood Blood Culture - Preliminary NO GROWTH AFTER 48 HOURS 03/16/19 22:00 Blood Blood Culture - Preliminary NO GROWTH AFTER 48 HOURS 03/16/19 23:49 Sputum - Expectorated Sputum Gram Stain - Final 03/16/19 23:49 Sputum - Expectorated Sputum Sputum Culture - Preliminary Narrative: Patient appears significantly weak but is pleasant and talkative. No JVD. Lungs have some rhonchi especially in the left middle lung field but otherwise much clearer than on admission and yesterday. Heart rate regular. Abdomen soft. Distal perfusion good. No significant neurologic deficit except for global weakness. Assessment and Plan (1) Acute exacerbation of chronic obstructive airways disease Current visit: Yes Status: Acute Category: Medical Code(s): J44.1 - Chronic obstructive pulmonary disease with (acute) exacerbation (2) Acute respiratory failure with hypoxemia Current visit: Yes Status: Acute Category: Medical Code(s): J96.01 - Acute respiratory failure with hypoxia (3) Failure of outpatient treatment Current visit: Yes Status: Acute Category: Medical Code(s): Z78.9 - Other specified health status (4) Non-ST elevation (NSTEMI) myocardial infarction Current visit: Yes Status: Acute Category: Medical Code(s): I21.4 - Non-ST elevation (NSTEMI) myocardial infarction (5) Hyponatremia Current visit: No Status: Acute Category: Medical Code(s): E87.1 - Hypo-osmolality and hyponatremia (6) Severe sepsis Current visit: Yes Status: Acute Category: Medical Code(s): A41.9 - Sepsis, unspecified organism; R65.20 - Severe sepsis without septic shock - Assessment and plan all Dx Assessment and Plan for all problems:: Overall patient is improving very nicely. Transfer out of stepdown unit into [facility]. Continue current antibiotics. Patient reports some coughing after nebulizers we will switch to Xopenex and Mucomyst therapy. PT/OT for significant debility. I think she would benefit from skilled care stay and we will investigate this.
[2019-03-19 09:36] LABS: Lymphocytes % 10 % (10-50); Monocytes % 5 % (2-9); Neutrophils % 83 % (42-76); RBC Morphology Normal; Total Cells Counted 100
--- NOTE | 2019-03-19 10:46 | Progress Note ---
Subjective Date: 03/19/19 Time: 10:30 Principal diagnosis: CHF, Cardiomyopathy, NSTEMI Interval history: This is a 68-year-old white female who presented to the hospital with complaints of shortness of breath that was worsening as well as coughing up sputum. The patient underwent left cardiac catheterization which showed normal coronary arteries. She did have mildly elevated pulmonary pressures on her right heart cath but her echocardiogram showed moderate to severe pulmonary pressures. The patient does have diastolic dysfunction. This morning she states her shortness of breath is much better and she feels much better than she did yesterday. She denies any chest pain or pressure. She denies any edema. She denies any fever, chills, nausea, vomiting, diarrhea, PND or orthopnea. Exam Vital signs and Labs for Last 24 Hours: Temp Pulse Resp BP Pulse Ox 98.3 F 84 18 136/80 94 L 03/18/19 20:45 03/19/19 08:00 03/19/19 08:00 03/19/19 08:00 03/19/19 08:00 Laboratory Results - last 24 hr 03/18/19 05:43: POC Glucose 127 H 03/18/19 12:15: POC Glucose 125 H 03/18/19 16:20: ABG O2 Sat (Measured) 67.9 L, POC VBG O2 Sat ([place]) 69.2 L 03/18/19 22:12: POC Glucose 138 H 03/19/19 05:04: POC Glucose 123 H 03/19/19 05:54: WBC 18.5 H, RBC 4.58, Hgb 13.3, Hct 40.6, MCV 88.5, MCH 29.0, MCHC 32.7, RDW 14.0, Plt Count 378, MPV 8.1, Neut % (Auto) 85.4 H, Lymph % (Auto) 11.2, [place] % (Auto) 2.0, Eos % (Auto) 0.7, Baso % (Auto) 0.7, Neut # (Auto) 15.8 H, Lymph # (Auto) 2.1, [place] # (Auto) 0.4, Eos # (Auto) 0.1, Baso # (Auto) 0.1, Total Counted 100, Neutrophils % (Manual) 83 H, Band Neutrophils % 2.0, Lymphocytes % (Manual) 10, Monocytes % (Manual) 5, Platelet Estimate Normal, RBC Morphology Normal 03/19/19 05:54: Sodium 133 L, Potassium 4.7, Chloride 98, Carbon Dioxide 30 D, Anion Gap 9.7, BUN 39 H D, Creatinine 0.84 D, Estimated Creat Clear 56, Estimated GFR 68, Est GFR ( Amer) 82 D, Glucose 178 H, Calcium 8.4 L I & O for Last 24 hours: Intake & Output 03/16/19 03/17/19 03/18/19 03/19/19 23:59 23:59 23:59 23:59 Intake Total 1760 / 1760 120 / 140 643 / 643 Output Total 1835 / 1835 2800 / 2800 500 / 500 Balance -75 / -75 -2680 / -2660 143 / 143 Weight 130 lb 143 lb 3 oz 143 lb 3.008 oz Microbiology Reports for the Last 24 Hours: Microbiology 03/16/19 22:00 Blood Blood Culture - Preliminary NO GROWTH AFTER 48 HOURS 03/16/19 22:00 Blood Blood Culture - Preliminary NO GROWTH AFTER 48 HOURS 03/16/19 23:49 Sputum - Expectorated Sputum Gram Stain - Final 03/16/19 23:49 Sputum - Expectorated Sputum Sputum Culture - Preliminary Narrative: Telemetry strip is sinus rhythm - Constitutional no acute distress, average body habitus - *Routine HEENT Exam Head: Present: normocephalic Eye: Present: EOMI, PERRL ENT: Present: mucous membranes moist - *Routine Neck Exam Present: supple, full ROM, normal carotid upstroke. Absent: JVD, carotid bruit, lymphadenopathy - *Routine Respiratory Exam Present: decreased breath sounds, wheezes (Expiratory wheezing) - *Routine Cardiovascular Exam Present: RRR, Normal S1, Normal S2. Absent: murmur - *Routine Abdominal Exam Present: soft, normoactive bowel sounds. Absent: tenderness, distended - *Routine Extremities Exam Present: full ROM, pulses intact, normal capillary refill. Absent: cyanosis, clubbing, edema - *Routine Skin Exam Present: intact, warm. Absent: erythema, rash - *Routine Neurological Exam Present: alert, oriented X3, CN II-XII intact. Absent: sensory deficit, motor deficit - Detailed Eye Exam Eyelids: Left normal inspection Progress Note: A&P (1) Acute exacerbation of chronic obstructive airways disease Status: Acute Current Visit: Yes (2) Acute respiratory failure with hypoxemia Status: Acute Current Visit: Yes (3) Failure of outpatient treatment Status: Acute Current Visit: Yes (4) Non-ST elevation (NSTEMI) myocardial infarction Status: Acute Current Visit: Yes (5) Hyponatremia Status: Acute Current Visit: No (6) Severe sepsis Status: Acute Current Visit: Yes (7) Normal coronary arteries Status: Chronic Current Visit: Yes (8) Diastolic dysfunction Status: Chronic Current Visit: Yes Assessment and Plan for All Diagnoses:: Plan: 1. The patient was admitted with worsening shortness of breath. She has been being treated for a COPD exacerbation. Will defer management of this to her primary care provider. 2. The patient did undergo left cardiac catheterization which showed normal coronary arteries. She also had a right cardiac catheterization which showed mildly elevated pulmonary pressures. However, her echocardiogram showed moderate to severe elevated pulmonary pressures. The patient does have diastolic dysfunction and needs treatment of her diastolic dysfunction. 3. Dr. Crawford recommends Lasix 40 mg p.o. daily as well as Aldactone 25 mg p.o. daily to improve her diastolic dysfunction. 4. We will get a BMP in the morning. 5. Her blood pressure is acceptable at this time. 6. Her LDL goal is less than 100. we will get a lipid panel. 7. Further recommendations were made pending the patient's response to treatment. Thank you for the opportunity to help participate in the care of this patient.
[2019-03-20 06:34] LABS: Anion Gap 12.1 mEq/L (5-15); Calcium 8.3 mg/dL (8.5-10.1)
[2019-03-20 06:39] LABS: Chol/HDL Ratio 3.2 (1-3.5)
[2019-03-20 07:04] LABS: Basophils # 0.2 K/mm3 (0-0.2); Basophils % 0.9 % (0.1-2.0); Eosinophils # 0.2 K/mm3 (0.0-0.4); Hematocrit 41.3 % (37.0-47.0); Hemoglobin 13.8 g/dL (12.2-16.2); Lymphocytes # 2.6 K/mm3 (0.7-4.5); Lymphocytes % 12.4 % (10-50); Mean Corpuscular HGB Conc 33.5 g/dL (31.8-35.4); Mean Corpuscular Volume 85.2 fl (81-99); Mean Platelet Volume 8.8 fl (7.4-10.4); Monocytes % 4.8 % (1.7-9.3); Neutrophils # 16.6 K/mm3 (1.8-7.8); Neutrophils % 80.9 % (37.0-80.0); Platelet Count 420 K/mm3 (142-424); Red Blood Count 4.84 M/mm3 (4.20-5.40); Red Cell Distribution Width 13.6 % (11.5-17.5); White Blood Count 20.5 K/mm3 (4.8-10.8)
--- NOTE | 2019-03-20 07:41 | Electrocardiograph Report ---
APPROVED REPORT Exam: Resting ECG HR:80 bpm ECG Measurements Heart Rate 80 AXES FL 164 P 12 QRSd 72 QRS 11 QT 388 T7 QTc 447 <Conclusion> Normal sinus rhythm Junctional ST depression, probably normal Borderline ECG Electronically signed by : Raleigh Valentine, 03/20/2019 07:40:33
[2019-03-20 08:56] LABS: Lymphocytes % 11 % (10-50); Monocytes % 6 % (2-9); Myelocytes % 1 (0-1); Neutrophils % 74 % (42-76); Total Cells Counted 100
[2019-03-20 08:58] LABS: Anisocytosis 1+
--- NOTE | 2019-03-20 09:55 | Discharge Summary ---
General - General Admission date:: 03/17/19 Discharge date: 03/20/19 HPI HPI: 68-year-old white female, normally sees Dr. Trejo, with severe COPD, significant kyphosis and history of heart disease who continues to smoke heavily, presented to the emergency department late yesterday evening with severe shortness of air, was found to be significantly hypoxic, tachycardic, tachypneic and in respiratory distress. Patient actually refused intubation according to ER notes, and was placed on BiPAP with some improvement in her respiratory acidosis. Chest x-ray revealed evidence of pneumonia, COPD exacerbation and she was found to have evidence of non-STEMI with elevated cardiac enzymes. Admitted to intensive care unit on BiPAP with cardiology consultation pending. This morning the patient states she feels somewhat better, is alert and able to respond to questions. Hospital Course Hospital Course: Patient was admitted for respiratory failure and sepsis. Treated with broad- spectrum antibiotics and diuresed aggressively after initial fluid resuscitation. Had improvement over the coming days with diuresis and gradual de-escalation of respiratory support from initial BiPAP down to 2 L nasal cannula oxygen. Cardiology was consulted during admission and a left heart cath was performed once that she was more stable respiratorily. Catheterization found that she had normal coronary arteries, normal EF, and Mildly elevated LVEDP consistent with diastolic dysfunction and Mild pulmonary hypertension. Recommend medical management and so her medications were adjusted along with diuretics for volume modification. Antibiotics were transitioned to oral for completion of a course for her respiratory failure. Medically stable for discharge home with supplemental oxygen and oral medications. Patient states she is breathing much better. Denies nausea, vomiting, diarrhea, chest pain. We will have close follow-up in the outpatient setting to monitor for continued improvement of respiratory status and maintain close watch over her volume status. Objective Vital signs: Temp Pulse Resp BP Pulse Ox 98.2 F 74 20 154/112 H 95 03/20/19 07:25 03/20/19 07:25 03/20/19 07:25 03/20/19 07:25 03/20/19 07:25 Narrative: Patient appears weak, chronically ill but is pleasant and talkative. on [place] O2 2L No JVD, supple, no LAD Lungs with interval improvement, absent rhonchi or wheeze, faint bibasilar crackles in posterior lung [place]. Good air movement bilaterally Heart rate regular, no murmur Abdomen soft, non distended, non tender Distal perfusion good. No significant neurologic deficit except for generalized weakness, strength globally 4/5 Results Labs on day of discharge: Labs from last 24 hours 03/20/19 03/20/19 03/20/19 06:34 06:09 06:09 WBC RBC Hgb Hct MCV MCH MCHC RDW Plt Count MPV Neut % (Auto) Lymph % (Auto) [place] % (Auto) Eos % (Auto) Baso % (Auto) Neut # (Auto) Lymph # (Auto) [place] # (Auto) Eos # (Auto) Baso # (Auto) Total Counted Neutrophils % (Manual) Band Neutrophils % Lymphocytes % (Manual) Monocytes % (Manual) Metamyelocytes % Myelocytes % Platelet Estimate Anisocytosis [place] Cells Sodium 132 L Potassium 4.1 Chloride 95 L Carbon Dioxide 29 Anion Gap 12.1 BUN 31 H Creatinine 0.87 Estimated Creat Clear 50 Estimated GFR 65 Est GFR ( Amer) 79 Glucose 144 H POC Glucose 181 H Calcium 8.3 L Triglycerides 96 Cholesterol 187 LDL Cholesterol 110 VLDL Cholesterol 19 HDL Cholesterol 58 Cholesterol/HDL Ratio 3.2 Vancomycin Trough 03/20/19 03/20/19 03/19/19 06:09 02:30 20:26 WBC 20.5 H* RBC 4.84 Hgb 13.8 Hct 41.3 MCV 85.2 MCH 28.6 MCHC 33.5 RDW 13.6 Plt Count 420 MPV 8.8 Neut % (Auto) 80.9 H Lymph % (Auto) 12.4 [place] % (Auto) 4.8 Eos % (Auto) 1.0 Baso % (Auto) 0.9 Neut # (Auto) 16.6 H Lymph # (Auto) 2.6 [place] # (Auto) 1.0 Eos # (Auto) 0.2 Baso # (Auto) 0.2 Total Counted 100 Neutrophils % (Manual) 74 Band Neutrophils % 7.0 Lymphocytes % (Manual) 11 Monocytes % (Manual) 6 Metamyelocytes % 1.0 Myelocytes % 1 Platelet Estimate Normal Anisocytosis 1+ [place] Cells 1+ Sodium Potassium Chloride Carbon Dioxide Anion Gap BUN Creatinine Estimated Creat Clear Estimated GFR Est GFR ( Amer) Glucose POC Glucose 151 H Calcium Triglycerides Cholesterol LDL Cholesterol VLDL Cholesterol HDL Cholesterol Cholesterol/HDL Ratio Vancomycin Trough 10.5 01/15/20 01/15/20 16:00 11:39 WBC RBC Hgb Hct MCV MCH MCHC RDW Plt Count MPV Neut % (Auto) Lymph % (Auto) [place] % (Auto) Eos % (Auto) Baso % (Auto) Neut # (Auto) Lymph # (Auto) [place] # (Auto) Eos # (Auto) Baso # (Auto) Total Counted Neutrophils % (Manual) Band Neutrophils % Lymphocytes % (Manual) Monocytes % (Manual) Metamyelocytes % Myelocytes % Platelet Estimate Anisocytosis [place] Cells Sodium Potassium Chloride Carbon Dioxide Anion Gap BUN Creatinine Estimated Creat Clear Estimated GFR Est GFR ( Amer) Glucose POC Glucose 151 H 140 H Calcium Triglycerides Cholesterol LDL Cholesterol VLDL Cholesterol HDL Cholesterol Cholesterol/HDL Ratio Vancomycin Trough Preliminary micro results at discharge 03/16/19 22:00 Blood Culture - Preliminary Blood NO GROWTH AFTER 48 HOURS 03/16/19 22:00 Blood Culture - Preliminary Blood NO GROWTH AFTER 48 HOURS DS: Diagnosis - Discharge Diagnosis (1) Acute exacerbation of chronic obstructive airways disease Status: Acute (2) Acute respiratory failure with hypoxemia Status: Resolved (3) Failure of outpatient treatment Status: Resolved (4) Non-ST elevation (NSTEMI) myocardial infarction Status: Resolved (5) Hyponatremia Status: Resolved (6) Severe sepsis Status: Resolved (7) Normal coronary arteries Status: Chronic (8) Diastolic dysfunction Status: Chronic (9) Acute combined systolic (congestive) and diastolic (congestive) heart failure Status: Acute Discharge Plan - Patient Discharge Instructions ACTIVITY: Ambulate as tolerated DIET: continue same diet Patient Instructions: Pneumonia-Adult, Heart Attack, Angina, Echocardiogram, Heart-Healthy Diet, Pneumococcal Vaccine, DI for Pneumonia -- Adult, DI for Angina, DI for Cardiac Catheterization, DI for Atypical Chest Pain, DI for Surgical Site Infection, DI for Respiratory Failure, Respiratory Failure - Follow up Plan Follow up with: aRi Crawford MD [Staff Physician] - 03/28/19 11:20 am Wei Will MD [Staff Physician] - Disposition: Home Health Service Home Medications: Home Medications Medication Instructions Recorded Confirmed Type Gabapentin [Gabapentin 300mg Cap] 600 mg PO HS 03/16/19 03/17/19 History Fluoxetine HCl 10 mg PO DAILY 03/17/19 03/17/19 History Pramipexole Di-HCl [Mirapex] 0.5 mg PO HS 03/17/19 03/17/19 History Fluticasone/Vilanterol [Breo 1 inh IH DAILY 30 Days #1 device 03/20/19 Rx Ellipta 100-25 Mcg INH] Furosemide [Lasix 40mg tablet] 40 mg PO DAILY 30 Days #30 tab 03/20/19 Rx Ipratropium/Albuterol Sulfate 3 ml IH Q6 PRN 30 Days #60 03/20/19 Rx [Duoneb 3mL neb] ampul.neb Irbesartan [Avapro 75mg 75 mg PO DAILY 30 Days #30 tab 03/20/19 Rx tablet] Pantoprazole Sodium [Protonix 40mg 40 mg PO HS 30 Days #30 tablet.dr 03/20/19 Rx tablet] Spironolactone [Aldactone 25mg 25 mg PO DAILY 30 Days #30 tab 03/20/19 Rx Tab] levoFLOXacin [Levaquin 500mg 500 mg PO DAILY #5 tab 03/20/19 Rx tab] predniSONE [Deltasone 20mg 40 mg PO DAILY 3 Days #6 tab 03/20/19 Rx tablet] Prescriptions/Medication Reconciliation: New Irbesartan [Avapro 75mg tablet] 75 mg PO DAILY 30 Days #30 tab Fluticasone/Vilanterol [Breo Ellipta 100-25 Mcg INH] 1 inh IH DAILY 30 Days #1 device levoFLOXacin [Levaquin 500mg tab] 500 mg PO DAILY #5 tab Spironolactone [Aldactone 25mg Tab] 25 mg PO DAILY 30 Days #30 tab Ipratropium/Albuterol Sulfate [Duoneb 3mL neb] 3 ml IH Q6 PRN 30 Days #60 ampul.neb PRN Reason: Shortness Of Breath Or Wheezing Furosemide [Lasix 40mg tablet] 40 mg PO DAILY 30 Days #30 tab Pantoprazole Sodium [Protonix 40mg tablet] 40 mg PO HS 30 Days #30 tablet. Continued Gabapentin [Gabapentin 300mg Cap] 600 mg PO HS Pramipexole Di-HCl [Mirapex] 0.5 mg PO HS Fluoxetine HCl 10 mg PO DAILY Changed predniSONE [Deltasone 20mg tablet] 40 mg PO DAILY 3 Days #6 tab Discontinued Albuterol Sulfate [Albuterol Sulfate 2.5mg/0.5ml Neb] 2.5 mg IH Q4HP PRN 30 Days #100 neb PRN Reason: Wheezing Amoxicillin [Amoxicillin 500mg Cap] 500 mg PO BID - Problem Reconciliation Problems Reviewed?: Yes
--- NOTE | 2019-03-20 11:01 | Pharmacy Consult Notes ---
- Pharmacy Consult Date: 03/20/19 Time: 11:00 Referring provider: DR. CADET Reason for Consult:: VANCOMYCIN TROUGH LEVEL Allergies and ADEs:: Allergies Allergy/AdvReac Type Severity Reaction Status Date / Time No Known Allergies Allergy Verified 03/16/19 21:58 Home Medications:: Home Medications Medication Instructions Recorded Confirmed Type Gabapentin [Gabapentin 300mg Cap] 600 mg PO HS 03/16/19 03/17/19 History Fluoxetine HCl 10 mg PO DAILY 03/17/19 03/17/19 History Pramipexole Di-HCl [Mirapex] 0.5 mg PO HS 03/17/19 03/17/19 History Fluticasone/Vilanterol [Breo 1 inh IH DAILY 30 Days #1 device 03/20/19 Rx Ellipta 100-25 Mcg INH] Furosemide [Lasix 40mg tablet] 40 mg PO DAILY 30 Days #30 tab 03/20/19 Rx Ipratropium/Albuterol Sulfate 3 ml IH Q6 PRN 30 Days #60 03/20/19 Rx [Duoneb 3mL neb] ampul.del Irbesartan [Avapro 75mg 75 mg PO DAILY 30 Days #30 tab 03/20/19 Rx tablet] Pantoprazole Sodium [Protonix 40mg 40 mg PO HS 30 Days #30 tablet. 03/20/19 Rx tablet] Spironolactone [Aldactone 25mg 25 mg PO DAILY 30 Days #30 tab 03/20/19 Rx Tab] levoFLOXacin [Levaquin 500mg 500 mg PO DAILY #5 tab 03/20/19 Rx tab] predniSONE [Deltasone 20mg 40 mg PO DAILY 3 Days #6 tab 03/20/19 Rx tablet] Height: 1.5 m Weight: 58.145 kg Laboratory Results:: Laboratory Results - last 24 hr 03/19/19 11:39: POC Glucose 140 H 03/19/19 16:00: POC Glucose 151 H 03/19/19 20:26: POC Glucose 151 H 03/20/19 02:30: Vancomycin Trough 10.5 03/20/19 06:09: WBC 20.5 H*, RBC 4.84, Hgb 13.8, Hct 41.3, MCV 85.2, MCH 28.6, MCHC 33.5, RDW 13.6, Plt Count 420, MPV 8.8, Neut % (Auto) 80.9 H, Lymph % (Auto) 12.4, [place] % (Auto) 4.8, Eos % (Auto) 1.0, Baso % (Auto) 0.9, Neut # (Auto) 16.6 H, Lymph # (Auto) 2.6, [place] # (Auto) 1.0, Eos # (Auto) 0.2, Baso # (Auto) 0.2, Total Counted 100, Neutrophils % (Manual) 74, Band Neutrophils % 7.0, Lymphocytes % (Manual) 11, Monocytes % (Manual) 6, Metamyelocytes % 1.0, Myelocytes % 1, Platelet Estimate Normal, Anisocytosis 1+, [place] Cells 1+ 03/20/19 06:09: Sodium 132 L, Potassium 4.1, Chloride 95 L, Carbon Dioxide 29, Anion Gap 12.1, BUN 31 H, Creatinine 0.87, Estimated Creat Clear 50, Estimated GFR 65, Est GFR ( Amer) 79, Glucose 144 H, Calcium 8.3 L 03/20/19 06:09: Triglycerides 96, Cholesterol 187, LDL Cholesterol 110, VLDL Cholesterol 19, HDL Cholesterol 58, Cholesterol/HDL Ratio 3.2 03/20/19 06:34: POC Glucose 181 H Medical History: Reports:: Chronic Obstructive Pulmonary Disease (COPD) Denies:: Cancer, Diabetes Mellitus Type 1, Diabetes Mellitus Type 2, Internal Pacemaker, MRSA Assessment and Plan (1) Acute exacerbation of chronic obstructive airways disease Current visit: Yes Status: Acute Category: Medical Code(s): J44.1 - Chronic obstructive pulmonary disease with (acute) exacerbation (2) Acute respiratory failure with hypoxemia Current visit: Yes Status: Acute Category: Medical Code(s): J96.01 - Acute respiratory failure with hypoxia (3) Failure of outpatient treatment Current visit: Yes Status: Resolved Category: Medical Code(s): Z78.9 - Other specified health status (4) Non-ST elevation (NSTEMI) myocardial infarction Current visit: Yes Status: Resolved Category: Medical Code(s): I21.4 - Non-ST elevation (NSTEMI) myocardial infarction (5) Hyponatremia Current visit: No Status: Acute Category: Medical Code(s): E87.1 - Hypo- osmolality and hyponatremia (6) Severe sepsis Current visit: Yes Status: Resolved Category: Medical Code(s): A41.9 - Sepsis, unspecified organism; R65.20 - Severe sepsis without septic shock (7) Normal coronary arteries Current visit: Yes Status: Chronic Category: Medical Code(s): Z03.89 - Encounter for observation for other suspected diseases and conditions ruled out (8) Diastolic dysfunction Current visit: Yes Status: Chronic Category: Medical Code(s): I51.89 - Other ill-defined heart diseases - Assessment and plan all Dx Assessment and Plan for all problems:: BASED ON PATIENT FACTORS AND VANCOMYCIN TROUGH LEVEL THIS MORNING, RECOMMEND CO NTINUING VANCOMYCIN 1 GM IV Q18H. PATIENT WILL BE DISCHARGED ON LEVAQUIN TODAY.
== END 2019-03-20 11:43 | disposition home health service (06) | DRG 189 ==
LOC: ER 21:45 → 2ND 03-17 02:25
PROVIDERS: ADMIT Emergency Medicine; ATTEND Internal Medicine Adolescent Medicine
CPT/HCPCS: 36415; 71010; 71045; 80048; 80053; 80061; 80202; 81001; 82803; 82810; 82962; 83605; 83735; 83880; 84484; 85007; 85025; 85378; 85610; 87040; 87070; 87205; 87275; 87276; 93005; 93306; 94640; 94660; 94761; 96365; 96367; 96372; 96375; 96376; 97116; 97162; 97166; 99152; 99285; C1725; C1769; C1894; J0456; J1644; J3370; Q9967

== ENCOUNTER → 2019-03-21 14:31 | Outpatient (CLI) | payer MEDICARE, SELFPAY ==
[2019-03-21 14:45] LABS: Basophils # 0.1 K/mm3 (0-0.2); Eosinophils # 0.1 K/mm3 (0.0-0.4); Eosinophils % 0.4 % (0.1-12.0); Hematocrit 48.2 % (37.0-47.0); Hemoglobin 15.4 g/dL (12.2-16.2); Lymphocytes # 1.5 K/mm3 (0.7-4.5); Mean Corpuscular HGB Conc 31.9 g/dL (31.8-35.4); Mean Corpuscular Hemoglobin 28.1 pg (27.0-31.2); Mean Corpuscular Volume 88.1 fl (81-99); Mean Platelet Volume 7.9 fl (7.4-10.4); Monocytes # 0.4 K/mm3 (0.1-1.0); Monocytes % 2.8 % (1.7-9.3); Neutrophils # 11.6 K/mm3 (1.8-7.8); Neutrophils % 84.8 % (37.0-80.0); Platelet Count 458 K/mm3 (142-424); Red Blood Count 5.47 M/mm3 (4.20-5.40); Red Cell Distribution Width 14.6 % (11.5-17.5); White Blood Count 13.7 K/mm3 (4.8-10.8)
[2019-03-21 15:44] LABS: Alanine Aminotransferase 65 U/L (12-78); Albumin Level 2.8 gm/dL (3.4-5.0); Albumin/Globulin Ratio 0.8 (1.1-1.8); Alkaline Phosphatase 130 U/L (46-116); Anion Gap 12.6 mEq/L (5-15); Aspartate Amino Transferase 26 U/L (15-37); Bilirubin,Total 0.3 mg/dL (0.2-1.0); Blood Urea Nitrogen 27 mg/dL (7-18); Calcium 8.3 mg/dL (8.5-10.1); Carbon Dioxide 32 mmol/L (21.0-32.0); Chloride 93 mmol/L (98-107); Creatinine,Serum 0.86 mg/dL (0.55-1.02); Estimated Glomerular Filt Rate 66 ml/min (>60); GFR (African American) 80 ML/MIN (>60); Globulin 3.3 gm/dl (1.3-3.2); Glucose 157 mg/dL (74-106); Potassium 4.6 mmoL/L (3.5-5.1); Sodium 133 mmol/L (136-145); Total Protein,Serum 6.1 gm/dL (6.4-8.2)
== END ==
PROVIDERS: Visit Provider Internal Medicine Adolescent Medicine
DX: J44.1 Chronic obstructive pulmonary disease with (acute) exacerbation (principal)
CPT/HCPCS: 80053; 85025

== ENCOUNTER → 2019-04-04 11:46 | Outpatient (CLI) | payer MEDICARE, SELFPAY ==
[2019-04-04 13:50] LABS: Blood Urea Nitrogen 25 mg/dL (7-18); Calcium 8.8 mg/dL (8.5-10.1); Carbon Dioxide 29 mmol/L (21.0-32.0); Chloride 104 mmol/L (98-107); Creatinine,Serum 1.04 mg/dL (0.55-1.02); Estimated Glomerular Filt Rate 53 ml/min (>60); GFR (African American) 64 ML/MIN (>60); Glucose 65 mg/dL (74-106); Sodium 141 mmol/L (136-145)
[2019-04-04 15:51] LABS: Basophils # 0.1 K/mm3 (0-0.2); Basophils % 1.1 % (0.1-2.0); Eosinophils # 0.5 K/mm3 (0.0-0.4); Eosinophils % 6.6 % (0.1-12.0); Hematocrit 39.3 % (37.0-47.0); Hemoglobin 12.7 g/dL (12.2-16.2); Lymphocytes # 2.1 K/mm3 (0.7-4.5); Lymphocytes % 29.5 % (10-50); Mean Corpuscular HGB Conc 32.3 g/dL (31.8-35.4); Mean Corpuscular Volume 89.7 fl (81-99); Mean Platelet Volume 9.6 fl (7.4-10.4); Monocytes # 0.5 K/mm3 (0.1-1.0); Monocytes % 6.5 % (1.7-9.3); Neutrophils % 56.4 % (37.0-80.0); Platelet Count 348 K/mm3 (142-424); Red Blood Count 4.38 M/mm3 (4.20-5.40); Red Cell Distribution Width 13.6 % (11.5-17.5); White Blood Count 7.1 K/mm3 (4.8-10.8)
[2019-04-04 16:33] LABS: Alanine Aminotransferase 23 U/L (12-78); Albumin Level 3.1 gm/dL (3.4-5.0); Alkaline Phosphatase 125 U/L (46-116); Aspartate Amino Transferase 18 U/L (15-37); Bilirubin,Direct 0.1 mg/dL (0.0-0.2); Bilirubin,Indirect 0.2 mg/dL (0.0-0.9); Bilirubin,Total 0.3 mg/dL (0.2-1.0); Free Thyroxine Index 2.3 ug/dL (5.93-13.13); T4 (Thyroxine) 6.9 ug/dl (4.7-13.3); Thyroid Stimulating Hormone 3.92 uIU/ml (0.358-3.740); Total Protein,Serum 6.2 gm/dL (6.4-8.2); Triiodothryronine (T3) Uptake 34 % (31-39)
== END ==
PROVIDERS: PCP Internal Medicine Adolescent Medicine; Visit Provider Internal Medicine Cardiovascular Disease
DX: I50.9 Heart failure, unspecified (principal); J44.9 Chronic obstructive pulmonary disease, unspecified; J96.11 Chronic respiratory failure with hypoxia
CPT/HCPCS: 36415; 80048; 80076; 83880; 84436; 84443; 84479; 85025

== ENCOUNTER → 2019-05-06 12:40 | Outpatient (CLI) | payer MEDICARE, SELFPAY ==
--- NOTE | 2019-05-06 12:56 | CT_ITS ---
PROCEDURE: CT CHEST WO/W CON CLINCAL INDICATION: dyspnea, abnormal CT of lung Recent pneumonia, dyspnea, abnormal CT scan follow-up COMPARISON: [facility] CT CHEST W/O CONTRAST from 10/22/2013 CT LUNG SCREENING from 11/13/2018 TECHNIQUE: IV Contrast: 75ml Optiray 350 Axial images obtained with sagittal and coronal reformats. All CT scans at the facility use one or more dose reduction, viz: automated exposure control, ma/kV adjustment per patient size (including targeted exams where dose is matched to indication, i.e. head), or iterative reconstruction technique. FINDINGS: HEART AND MEDIASTINAL STRUCTURES: Unremarkable. LUNGS AND PLEURAL SPACES: COPD with mild diffuse bronchial thickening. Scattered alveolar and interstitial opacities are once again noted in the right upper lobe superiorly and anteriorly in a peripheral distribution. This however appears slightly improved. Atelectatic or fibrotic changes are once again noted in the right middle lobe and lingula. Tree in bud pattern in the left upper lobe and lingula with bronchial thickening and volume loss once again noted and may be slightly improved in the lingula. No lobar consolidation or collapse. No effusions. The BONY STRUCTURES: No acute finding UPPER ABDOMEN: Prior gastric bypass ADDITIONAL FINDINGS: No other significant abnormalities. IMPRESSION: Persistent but very slightly improved scattered alveolar opacities with bronchial thickening consistent with bronchopneumonia with tree-in-bud appearance. No new abnormalities are evident. Diffuse COPD with atelectatic or fibrotic changes in the right middle lobe and lingula Dictated by: Corey Smith MD 05/07/2019 13:00 Electronically signed by Corey Smith MD in [place] 05/07/2019 13:00
[2019-05-06 13:11] LABS: Anion Gap 10.7 mEq/L (5-15); Blood Urea Nitrogen 25 mg/dl (7-17); Calcium 9.3 mg/dl (8.4-10.2); Carbon Dioxide 28 mmol/L (22.0-30.0); Chloride 103 mmol/L (98-107); Estimated Glomerular Filt Rate 55 ml/min (>60); GFR (African American) 67 ML/MIN (>60); Glucose 101 mg/dl (74-100); Potassium 4.7 mmoL/L (3.5-5.1); Sodium 137 mmol/L (136-145)
[2019-05-06 13:20] LABS: NT Pro Brain Natriuretic Pep. 271 pg/mL (0-125)
== END ==
PROVIDERS: PCP Internal Medicine Adolescent Medicine; Visit Provider Internal Medicine Cardiovascular Disease
DX: I42.9 Cardiomyopathy, unspecified; I50.41 Acute combined systolic (congestive) and diastolic (congestive) heart failure; J44.9 Chronic obstructive pulmonary disease, unspecified; R49.0 Dysphonia
CPT/HCPCS: 36415; 71270; 80048; 83880; Q9967

== ENCOUNTER → 2019-05-16 10:39 | Outpatient (CLI) | payer MEDICARE, SELFPAY ==
[2019-05-16 12:46] LABS: Anion Gap 11.6 mEq/L (5-15); Blood Urea Nitrogen 26 mg/dl (7-17); Calcium 9.8 mg/dl (8.4-10.2); Carbon Dioxide 32 mmol/L (22.0-30.0); Chloride 96 mmol/L (98-107); Estimated Glomerular Filt Rate 62 ml/min (>60); GFR (African American) 76 ML/MIN (>60); Glucose 100 mg/dl (74-100); Potassium 5.6 mmoL/L (3.5-5.1); Sodium 134 mmol/L (136-145)
[2019-05-16 12:55] LABS: NT Pro Brain Natriuretic Pep. 481 pg/mL (0-125)
== END ==
PROVIDERS: Visit Provider Physician Assistant
DX: R06.00 Dyspnea, unspecified; I42.9 Cardiomyopathy, unspecified; I50.41 Acute combined systolic (congestive) and diastolic (congestive) heart failure; Z03.89 Encounter for observation for other suspected diseases and conditions ruled out
CPT/HCPCS: 36415; 80048; 83880

== ENCOUNTER → 2019-05-22 08:34 | Outpatient (CLI) | payer MEDICARE, SELFPAY ==
[2019-05-22 09:56] LABS: Anion Gap 12.2 mEq/L (5-15); Blood Urea Nitrogen 40 mg/dl (7-17); Calcium 9.6 mg/dl (8.4-10.2); Carbon Dioxide 29 mmol/L (22.0-30.0); Chloride 100 mmol/L (98-107); Estimated Glomerular Filt Rate 62 ml/min (>60); GFR (African American) 76 ML/MIN (>60); Glucose 109 mg/dl (74-100); Potassium 5.2 mmoL/L (3.5-5.1); Sodium 136 mmol/L (136-145)
== END ==
PROVIDERS: Visit Provider Physician Assistant
DX: E87.5 Hyperkalemia (principal)
CPT/HCPCS: 36415; 80048

== ENCOUNTER → 2019-06-24 10:13 | Outpatient (CLI) | payer MEDICARE, SELFPAY ==
[2019-06-24 11:42] LABS: Chloride 100 mmol/L (98-107); Potassium 5.2 mmoL/L (3.5-5.1); Sodium 137 mmol/L (136-145)
[2019-06-24 11:45] LABS: Blood Urea Nitrogen 30 mg/dl (7-17); Estimated Glomerular Filt Rate 62 ml/min (>60); GFR (African American) 76 ML/MIN (>60)
[2019-06-24 11:46] LABS: Anion Gap 13.2 mEq/L (5-15); Calcium 9.6 mg/dl (8.4-10.2); Carbon Dioxide 29 mmol/L (22.0-30.0); Glucose 90 mg/dl (74-100)
== END ==
PROVIDERS: Visit Provider Internal Medicine Adolescent Medicine
DX: I50.30 Unspecified diastolic (congestive) heart failure (principal)
CPT/HCPCS: 36415; 80048

== ENCOUNTER → 2019-07-02 12:50 | Outpatient (CLI) | payer MEDICARE, SELFPAY ==
--- NOTE | 2019-07-02 12:56 | XR_ITS ---
PROCEDURE: XR CHEST 2V CLINICAL HISTORY: PNEUMONIA,COPD Cough COMPARISON: CXR2V XR chest 2V from 04/29/2018 XR CHEST PORTABLE from 03/16/2019 XR CHEST PORTABLE from 03/17/2019 CT CHEST WO/W CON from 05/06/2019 FINDINGS: Unremarkable cardiovascular structures. There is mild prominence of the right hilum which may be related to ectatic/tortuous ascending aorta. There is evidence of old granulomatous disease. No lobar consolidation or collapse. There are surgical clips in the left upper quadrant. No acute bony abnormalities. IMPRESSION: No acute findings. Dictated by: Corey Smith MD 07/02/2019 13:22 Electronically signed by Corey Smith MD in [place] 07/02/2019 13:22
== END ==
PROVIDERS: PCP Internal Medicine Adolescent Medicine; Visit Provider Internal Medicine Adolescent Medicine
DX: J18.1 Lobar pneumonia, unspecified organism (principal); J44.9 Chronic obstructive pulmonary disease, unspecified
CPT/HCPCS: 71046

== ENCOUNTER 2019-07-18 09:19 | Inpatient (IN) | payer MEDICARE, OTHER, SELFPAY ==
[2019-07-18 09:31] VITALS: BMI 32.0
[2019-07-18 09:53] VITALS: BP 161/99; PULSE 98; RESP 20; TEMP 36.8; O2SAT 98
--- NOTE | 2019-07-18 09:59 | XR_ITS ---
PROCEDURE: XR CHEST PORTABLE CLINICAL HISTORY: dyspnea COMPARISON: XR CHEST PORTABLE from 03/16/2019 XR CHEST PORTABLE from 03/17/2019 CT CHEST WO/W CON from 05/06/2019 XR CHEST 2V from 07/02/2019 FINDINGS: The cardiomediastinal silhouette and pulmonary vascularity are within normal limits. The lungs are clear without infiltrates, suspicious nodules, or pleural effusions. No acute bony abnormalities. There are surgical clips near the gastroesophageal junction. IMPRESSION: No acute findings. Dictated by: Dr. Shreyas Simeon MD 07/18/2019 11:[address] Shreyas Simeon MD in [place] 07/18/2019 11:08
--- NOTE | 2019-07-18 10:13 | ECG_ITS ---
APPROVED REPORT Exam: Resting ECG HR:112 bpm ECG Measurements Heart Rate 112 AXES NM 132 P 61 QRSd 76 QRS -11 QT 318 T 89 QTc 434 <Conclusion> Sinus tachycardia Nonspecific ST and T wave abnormality Abnormal ECG Electronically signed by : Raleigh Valentine, 07/19/2019 06:19:06
[2019-07-18 10:31] VITALS: PULSE 113; O2SAT 98
--- NOTE | 2019-07-18 10:38 | HMH.PHAVTE ---
[facility] [place] Pharmacy VTE Monitoring - Patient Demographics Admission date: 07/18/19 Report Date: 07/18/19 Time: 10:38 Allergies/Adverse Reactions: Patient Allergies No Known Allergies Allergy (Verified 05/16/19 11:10) Height: 1.5 m Weight: 153 kg - VTE Risk Clinical Trial Participant: No - Prophylaxis VTE Prophylaxis Ordered?: Yes Types of VTE Prophylaxis: TEDS Knee High
[2019-07-18 11:03] LABS: Basophils # 0.1 K/mm3 (0-0.2); Basophils % 0.6 % (0.1-2.0); Eosinophils % 4.8 % (0.1-12.0); Hematocrit 41.7 % (37.0-47.0); Hemoglobin 13.5 g/dL (12.2-16.2); Lymphocytes # 1.7 K/mm3 (0.7-4.5); Lymphocytes % 8.4 % (10-50); Mean Corpuscular HGB Conc 32.3 g/dL (31.8-35.4); Mean Corpuscular Hemoglobin 28.2 pg (27.0-31.2); Mean Corpuscular Volume 87.3 fl (81-99); Monocytes # 0.7 K/mm3 (0.1-1.0); Monocytes % 3.5 % (1.7-9.3); Neutrophils # 16.6 K/mm3 (1.8-7.8); Neutrophils % 82.6 % (37.0-80.0); Platelet Count 366 K/mm3 (142-424); Red Blood Count 4.77 M/mm3 (4.20-5.40); Red Cell Distribution Width 13.2 % (11.5-17.5); White Blood Count 20.1 K/mm3 (4.8-10.8)
[2019-07-18 11:05] LABS: Lactic Acid 0.9 mmol/L (0.7-2.1)
[2019-07-18 11:07] LABS: MANUAL DIFFERENTIAL MANUAL DIFFERENTIAL (MANUAL DIFF)
[2019-07-18 11:11] LABS: Eosinophils % 4 % (0-3); Lymphocytes % 13 % (10-50); Monocytes % 3 % (2-9); Neutrophils % 79 % (42-76); Platelet Estimate Normal; RBC Morphology Normal; Total Cells Counted 100
--- NOTE | 2019-07-18 11:12 | HMH.PHAINT ---
HOME MEDICATION RECONCILIATION COMPLETED USING LIST FROM DR CADET'S OFFICE, CARDIOLOGY OFFICE, AND PT PHARMACY. PT UNAWARE OF HOME MEDS AT THIS TIME.
[2019-07-18 11:14] LABS: ABG Base Excess -1.3 mmol/L (-2.4-2.3); ABG HCO3 24.1 mmhg (22.0-26.0); ABG Oxygen Saturation 99 % (90-100); ABG PCO2 43.2 mmhg (35.0-45.0); ABG PH 7.36 mmol/L (7.35-7.45); ABG PO2 128.9 mmhg (80-100); ABG TCO2 25.4 mmhg (23-27)
[2019-07-18 11:16] LABS: Source Left Brachial
[2019-07-18 11:17] LABS: Mycoplasma Pneumo IGM (Rapid) Reactive (Non-Reactiv)
[2019-07-18 11:35] LABS: Chloride 94 mmol/L (98-107)
[2019-07-18 11:36] LABS: Potassium 4.8 mmoL/L (3.5-5.1); Sodium 129 mmol/L (136-145)
[2019-07-18 11:38] LABS: Alanine Aminotransferase 22 U/L (12-78); Albumin Level 4.6 g/dl (3.5-5.0); Albumin/Globulin Ratio 1.5 (1.1-1.8); Alkaline Phosphatase 104 U/L (38-126); Anion Gap 11.8 mEq/L (5-15); Aspartate Amino Transferase 35 U/L (14-36); Bilirubin,Total 0.4 mg/dl (0.2-1.3); Blood Urea Nitrogen 17 mg/dl (7-17); Calcium 9.8 mg/dl (8.4-10.2); Carbon Dioxide 28 mmol/L (22.0-30.0); Creatinine Clearance Estimated 37 mL/min (50-200); Estimated Glomerular Filt Rate 72 ml/min (>60); GFR (African American) 87 ML/MIN (>60); Globulin 3.1 g/dL (1.3-3.2); Glucose 141 mg/dl (74-100); Total Protein,Serum 7.7 g/dl (6.3-8.2)
[2019-07-18 11:39] LABS: Magnesium 1.8 mg/dl (1.6-2.3)
[2019-07-18 11:51] LABS: Troponin I 0.28 ng/ml (0.00-0.034)
[2019-07-18 13:14] VITALS: BMI 28.6
--- NOTE | 2019-07-18 13:52 | HMH.HP ---
*Admission Date: 07/18/19 *Chief complaint: Cough/SOA *History of present illness: 68-year-old white female presented to the office for shortness of air today, when she was triaged she was found to be significantly tachypneic with respiratory rate greater than 30, found to be hypoxic with pulse oximetry 88% on 2 L nasal cannula and significant wheezing. Patient was at that point directly admitted to the hospital for COPD exacerbation and hypoxia along with tachypnea/possible bronchopneumonia. She denies recent ill contacts. Noted that she had been feeling fairly well up until yesterday evening when she suddenly became short of air. [facility] History I have reviewed the patient's past medical history: Yes Medical History: Reports:: Chronic Obstructive Pulmonary Disease (COPD), Gastroesophageal Reflux Disease(GERD), Hypertension Denies:: Cancer, Diabetes Mellitus Type 1, Diabetes Mellitus Type 2, Internal Pacemaker, MRSA *Have you ever received a pneumonia vaccine?: No *Have you received a flu vaccine this season?: No Other Medical History: Reports: Anemia, Arthritis, Sinus Problems, Other (RLS) Laterality Cases: Bilateral: Tonsillectomy Other Surgeries: Yes: Cardiac Catheterization, Cholecystectomy, Hysterectomy-Total. No: Pacemaker Amputation: No Fractures: No - *Social History Smoking Status: Former smoker Tobacco Type: cigarettes # Packs/Day (cigarettes): 1 #Yrs smoked (if former smoker): 52 Alcohol Intake: current Alcohol Intake Frequency:: holidays/special occasions only *Occupational Status:: retired Housing: house Household Members: spouse *Travel in the last 8 weeks: None Family Hx:: Anemia, Heart Attack, Hypertension, Kidney Disease, Stroke Review of Systems - Review of Systems Review of systems:: pertinent systems reviewed and negative unless documented below Meds Home Medications Medication Instructions Recorded Confirmed Type Gabapentin [Gabapentin 300mg Cap] 600 mg PO HS 03/16/19 07/18/19 History Fluoxetine HCl 10 mg PO DAILY 03/17/19 07/18/19 History Pramipexole Di-HCl [Mirapex] 0.5 mg PO HS 03/17/19 07/18/19 History Ipratropium/Albuterol Sulfate 3 ml IH Q6 PRN 30 Days #60 03/20/19 07/18/19 Rx [Duoneb 3mL neb] ampul.neb Furosemide [Furosemide 20mg Tab] 20 mg PO DAILY 07/18/19 07/18/19 History Irbesartan [Avapro 75mg 75 mg PO DAILY 07/18/19 07/18/19 History tablet] Pantoprazole Sodium [Protonix 40mg 40 mg PO HS 07/18/19 07/18/19 History tablet] Spironolactone [Spironolactone 25 mg PO DAILY 07/18/19 07/18/19 History 25mg Tablet] Allergies Allergy/AdvReac Type Severity Reaction Status Date / Time No Known Allergies Allergy Verified 05/16/19 11:10 Exam Vital signs and Labs for Last 24 Hours: Temp Pulse Resp BP Pulse Ox 98.2 F 113 H 20 161/99 H 98 07/18/19 09:53 07/18/19 10:31 07/18/19 09:53 07/18/19 09:53 07/18/19 10:31 Laboratory Results - last 24 hr 07/18/19 09:59: Specimen Source Left brachial, O2 % 2.5lpm nc, ABG pH 7.36, ABG pCO2 43.2, ABG pO2 128.9 H, ABG HCO3 24.1, ABG Total CO2 25.4, ABG O2 Saturation 99, ABG Base Excess -1.3, Corey Test na 07/18/19 10:30: WBC 20.1 H*, RBC 4.77, Hgb 13.5, Hct 41.7, MCV 87.3, MCH 28.2, MCHC 32.3, RDW 13.2, Plt Count 366, MPV 8.0, Neut % (Auto) 82.6 H, Lymph % (Auto) 8.4 L, [place] % (Auto) 3.5, Eos % (Auto) 4.8, Baso % (Auto) 0.6, Neut # (Auto) 16.6 H, Lymph # (Auto) 1.7, [place] # (Auto) 0.7, Eos # (Auto) 1.0 H, Baso # (Auto) 0.1, Total Counted 100, Neutrophils % (Manual) 79 H, Lymphocytes % (Manual) 13, Monocytes % (Manual) 3, Eosinophils % (Manual) 4 H, Metamyelocytes % 1.0, Platelet Estimate Normal, RBC Morphology Normal 07/18/19 10:30: Lactate 0.9 07/18/19 10:30: Mycoplasma pneumon IgM Reactive A 07/18/19 11:20: Sodium 129 L, Potassium 4.8, Chloride 94 L, Carbon Dioxide 28, Anion Gap 11.8, BUN 17, Creatinine 0.80, Estimated Creat Clear 37, Estimated GFR 72, Est GFR ( Amer) 87, Glucose 141 H, Calcium 9.8, Magnesium 1.8, T
[2019-07-18 14:23] LABS: D-Dimer < 100 ng/mL (0-400)
[2019-07-18 16:00] VITALS: BP 159/96; PULSE 112; RESP 20; TEMP 36.8; O2SAT 97
--- NOTE | 2019-07-18 19:06 | PC.NURSE ---
report given to lina
--- NOTE | 2019-07-18 19:37 | PC.NURSE ---
PATIENT ARRIVED ON FLOOR WITH AUDITORY WHEEZING. THIS RN PHONED DR. CADET'S OFFICE FOR ORDERS FOR BREATHING TREATMENTS. ORDERS IN COMPUTER AND BREATHING TREATMENT ADMINISTERED. LATER THRU THIS RN SHIFT, PATIENT'S VISITOR RAN OUT INTO THE HALLWAY STATING SHE CAN'T BREATHE. THIS RN WENT INTO THE ROOM, ASSESSED PATIENT. PATIENT'S O2 WAS 98% ON 2.5 NC, COLOR WAS PINK AND PATIENT WAS TALKING. THIS RN ENCOURAGED PATIENT TO TAKE DEEP BREATHS THRU HER NOSE AND EXHALE THRU THE MOUTH WITH HER LIPS LIKE SHE IS BLOWING OUT A CANDLE. PATIENT CONTINUED TO STATE, I CAN'T. THIS RN CONTINUED TO ENCOURAGE HER AND EDUCATE HER THE IMPORTANCE OF COPD BREATHING. THIS RN REACHED OUT TO DR. HELIO MD ORDERED 1X ONLY IMG IV ATIVAN. THIS RN ADMINISTER MEDICATION. PATIENT WAS ABLE TO RELAX. MD PHONED THIS RN TO CHECK IN ON PATIENT AND INFORM THIS RN THAT PATIENT WILL HAVE A PRN ORDER FOR PO ATIVAN. THIS RN EDUCATED PATIENT IN REGARDS TO TRYING TO REMAIN CALM WHEN EXPERIENCING LIKE SHE CAN'T BREATHE AND TO PERFORM THE MOUTH BREATHING LIKE SHE IS BLOWING OUT THE CANDLES. PATIENT VERBALIZED AN UNDERSTANDING. NO OTHER CONCERNS OR NEEDS AT THIS TIME.
[2019-07-18 19:59] VITALS: BP 141/93; PULSE 109; RESP 21; TEMP 36.7; O2SAT 98
[2019-07-18 20:23] VITALS: O2SAT 98
--- NOTE | 2019-07-18 20:36 | PC.NURSE ---
spoke with karen from pharm. pt is requesting to take her mirapex this hs for her restless legs. mirapex is sp on may for this evening but is not available. pt's son brought in her mirapex from home but it has not yet been verified by pharm. karen stated she is not able to take her mirapex tonight due to protocol since unverified by pharmacy at this time.
--- NOTE | 2019-07-18 20:40 | PC.NURSE ---
spoke with at this time. he provided orders for pt to self administer her mirapex this hs for restless legs.
[2019-07-18 21:46] VITALS: PULSE 100; PULSE 104; O2SAT 97
[2019-07-19] VITALS (9 sets, daily range): BP systolic 97–128; BP diastolic 63–76; PULSE 74–98; RESP 18; TEMP 36.6–36.8; O2SAT 92–100; BMI 31.9
--- NOTE | 2019-07-19 03:33 | PC.NURSE ---
A&O X4. AT BEGINNING OF SHIFT PT NOTED TO BE VERY ANXIOUS AND C/O SOA. THIS RN HELPED HER TO THE BATHROOM. SOFT FORMED BM NOTED. PT STATES HER BM HAS BEEN ?LOOSE? FOR 2 DAYS NOW. PT GETS VERY SOA WITH EXERTION WHEN AMBULATING. AFTER RETURNING TO BED, ENCOURAGED DEEP BREATHING EXERCISES AND OBTAINED O2, SATS NOTED AT 98% ON 2.5 LNC. PT REQUESTED ATIVAN. ADMIN ATIVAN PER MAR X1 THUS FAR THIS SHIFT. UPON REASSESSMENT PT STATES SHE IS STILL HAVING DIFFICULTY CATCHING HER BREATH. ENCOURAGED PT TO TAKE A BREATHING TX FOR RELIEF. PT AGREED. AFTER BREATHING TX, PT NOTED TO BE RESTING IN BED PEACEFULLY WITH HER EYES CLOSED. BILATERAL LUNG SOUNDS NOTED CLEAR/DIMINISHED T/O UPON AUSCULTATION. AUDIBLE WHEEZING NOTED WHEN PT IS ANXIOUS. TITRATED PT?S 02 TO 2LNC THIS SHIFT, PT TOLERATED WELL WITH NO FURTHER C/O THUS FAR. ENCOURAGED INCENTIVE SPIROMETER USE THIS SHIFT. PT DEMONSTRATED APPROPRIATE USE OF IS. SPUTUM COLLECTED AND SENT TO LAB. SPUTUM NOTED DARK GREEN IN COLOR AND THICK CONSISTENCY. PT C/O PERSISTENT COUGH THIS SHIFT WITH MINIMAL SECRETIONS. REFUSED TEDS. REMAINS IN CONTACT/DROPLET PRECAUTIONS. VSS. REMAINS SAFE. CALL LIGHT WITHIN REACH. WILL CONTINUE TO MONITOR.
--- NOTE | 2019-07-19 08:37 | HMH.ACPN2 ---
Internal Medicine - PN: Subj *Date: 07/19/19 *Time: 08:37 Interval history: Patient overall feels better today. Does get very short of air when she walks back from the bathroom to her hospital bed. Exam Vital signs and Labs for Last 24 Hours: Temp Pulse Resp BP Pulse Ox 98.2 F 98 H 18 123/76 98 07/19/19 08:00 07/19/19 08:00 07/19/19 08:00 07/19/19 08:00 07/19/19 08:00 Laboratory Results - last 24 hr 07/18/19 09:59: Specimen Source Left brachial, O2 % 2.5lpm nc, ABG pH 7.36, ABG pCO2 43.2, ABG pO2 128.9 H, ABG HCO3 24.1, ABG Total CO2 25.4, ABG O2 Saturation 99, ABG Base Excess -1.3, Corey Test na 07/18/19 10:30: WBC 20.1 H*, RBC 4.77, Hgb 13.5, Hct 41.7, MCV 87.3, MCH 28.2, MCHC 32.3, RDW 13.2, Plt Count 366, MPV 8.0, Neut % (Auto) 82.6 H, Lymph % (Auto) 8.4 L, [place] % (Auto) 3.5, Eos % (Auto) 4.8, Baso % (Auto) 0.6, Neut # (Auto) 16.6 H, Lymph # (Auto) 1.7, [place] # (Auto) 0.7, Eos # (Auto) 1.0 H, Baso # (Auto) 0.1, Total Counted 100, Neutrophils % (Manual) 79 H, Lymphocytes % (Manual) 13, Monocytes % (Manual) 3, Eosinophils % (Manual) 4 H, Metamyelocytes % 1.0, Platelet Estimate Normal, RBC Morphology Normal 07/18/19 10:30: Lactate 0.9 07/18/19 10:30: Mycoplasma pneumon IgM Reactive A 07/18/19 10:30: D-Dimer < 100 07/18/19 11:20: Sodium 129 L, Potassium 4.8, Chloride 94 L, Carbon Dioxide 28, Anion Gap 11.8, BUN 17, Creatinine 0.80, Estimated Creat Clear 37, Estimated GFR 72, Est GFR ( Amer) 87, Glucose 141 H, Calcium 9.8, Magnesium 1.8, Total Bilirubin 0.4, AST 35, ALT 22, Alkaline Phosphatase 104, Troponin I 0.28 H, Total Protein 7.7, Albumin 4.6, Globulin 3.1, Albumin/Globulin Ratio 1.5 I & O for Last 24 hours: Intake & Output 07/16/19 07/17/19 07/18/19 07/19/19 11:59 11:59 11:59 11:59 Intake Total 1611 / 1611 Output Total 700 / 700 Balance 911 / 911 Weight 158 lb 6.998 oz 158 lb 7 oz Microbiology Reports for the Last 24 Hours: Microbiology 07/19/19 01:46 Sputum - Expectorated Sputum Gram Stain - Final Narrative: Patient is pleasant, on the side of the bed eating breakfast. Does have some minimal expiratory wheezing. However much better air entry than yesterday. No peripheral edema. Heart rate regular. ENT exam clear. Neurologic exam intact. Abdomen soft and nontender. No rash. Assessment and Plan (1) Acute exacerbation of chronic obstructive airways disease Current visit: No Status: Acute Category: Medical Code(s): J44.1 - Chronic obstructive pulmonary disease with (acute) exacerbation (2) COPD (chronic obstructive pulmonary disease) Current visit: No Status: Acute Category: Medical Code(s): J44.9 - Chronic obstructive pulmonary disease, unspecified (3) Dyspnea Current visit: No Status: Acute Qualifiers: Category: Medical Code(s): R06.00 - Dyspnea, unspecified (4) Mycoplasma pneumonia Current visit: Yes Status: Acute Category: Medical Code(s): J15.7 - Pneumonia due to Mycoplasma pneumoniae Positive IgM titer for mycoplasma, fits with clinical picture. Continue azithromycin. Continue Solu-Medrol for wheezing.
[2019-07-20] VITALS: BP 126/62; PULSE 94; RESP 18; TEMP 36.7; O2SAT 97
--- NOTE | 2019-07-20 03:09 | PC.NURSE ---
Pt had a good night, rested well after midnight with rhythmic respirations and no objective s/s of pain identified. vital signs stable, afebrile, 022LNC remains in place, pt independent to bathroom. No c/o pain, however deep cough noted with inspiratory and expiratory wheezes remain. Lorazepam given at bedtime with no panic attacks thus far. Pt remains safe, call light w/i reach, monitoring continues.
[2019-07-20 03:47] VITALS: BP 116/61; PULSE 69; RESP 17; TEMP 36.7; O2SAT 98
[2019-07-20 04:53] VITALS: BMI 31.8
[2019-07-20 06:18] VITALS: PULSE 73; PULSE 78; O2SAT 93
[2019-07-20 07:11] LABS: Basophils % 0.1 % (0.1-2.0); Eosinophils # 0.1 K/mm3 (0.0-0.4); Eosinophils % 0.3 % (0.1-12.0); Hematocrit 37.1 % (37.0-47.0); Hemoglobin 12.1 g/dL (12.2-16.2); Lymphocytes # 0.8 K/mm3 (0.7-4.5); Lymphocytes % 4.6 % (10-50); Mean Corpuscular HGB Conc 32.5 g/dL (31.8-35.4); Mean Corpuscular Hemoglobin 28.1 pg (27.0-31.2); Mean Corpuscular Volume 86.3 fl (81-99); Mean Platelet Volume 7.6 fl (7.4-10.4); Monocytes # 0.5 K/mm3 (0.1-1.0); Neutrophils # 16.7 K/mm3 (1.8-7.8); Neutrophils % 92.1 % (37.0-80.0); Platelet Count 304 K/mm3 (142-424); Red Cell Distribution Width 13.1 % (11.5-17.5); White Blood Count 18.2 K/mm3 (4.8-10.8)
[2019-07-20 07:13] LABS: MANUAL DIFFERENTIAL MANUAL DIFFERENTIAL (MANUAL DIFF)
[2019-07-20 07:15] LABS: Anion Gap 13.4 mEq/L (5-15); Blood Urea Nitrogen 21 mg/dl (7-17); Calcium 9.2 mg/dl (8.4-10.2); Carbon Dioxide 23 mmol/L (22.0-30.0); Chloride 93 mmol/L (98-107); Creatinine Clearance Estimated 62 mL/min (50-200); Estimated Glomerular Filt Rate 72 ml/min (>60); GFR (African American) 87 ML/MIN (>60); Glucose 183 mg/dl (74-100); Potassium 4.4 mmoL/L (3.5-5.1); Sodium 125 mmol/L (136-145)
[2019-07-20 07:25] LABS: Lymphocytes % 5 % (10-50); Neutrophils % 86 % (42-76); Platelet Estimate Normal; RBC Morphology Normal; Total Cells Counted 100
[2019-07-20 07:37] VITALS: BP 120/60; PULSE 95; RESP 17; TEMP 36.7; O2SAT 97
--- NOTE | 2019-07-20 08:30 | HMH.DCSUM ---
General - General Admission date:: 07/18/19 Discharge date: 07/20/19 HPI HPI: 68-year-old white female presented to the office for shortness of air today, when she was triaged she was found to be significantly tachypneic with respiratory rate greater than 30, found to be hypoxic with pulse oximetry 88% on 2 L nasal cannula and significant wheezing. Patient was at that point directly admitted to the hospital for COPD exacerbation and hypoxia along with tachypnea/possible bronchopneumonia. She denies recent ill contacts. Noted that she had been feeling fairly well up until yesterday evening when she suddenly became short of air. Hospital Course Hospital Course: Patient was admitted, placed on high-dose intravenous steroids because of her wheezing and significant asthmatic exacerbation. Placed on initial antibiotics for community-acquired pneumonia and was found to have evidence of mycoplasma infection with acute IgM antibody titer positive. She felt much better after a couple of days of antibiotics and steroids. White count improved, but has not yet normalized. Oxygen requirement improved to baseline levels. This morning she was feeling much better, had eaten well, and has been able to walk around the room and do her own activities of daily living. Wheezing had also improved dramatically. She will be discharged home, she will finish up azithromycin, cefdinir and prednisone, she will also receive a prescription for cough medicine. She has had problems getting her inhaled corticosteroid inhaler because of insurance reasons. We will dispense her Advair from the hospital pharmacy supply and see if the generic version of this will be available on her insurance when she comes back to the office. Objective Vital signs: Temp Pulse Resp BP Pulse Ox 98.1 F 95 H 17 120/60 97 07/20/19 07:37 07/20/19 07:37 07/20/19 07:37 07/20/19 07:37 07/20/19 07:37 no acute distress - *Routine HEENT Exam Head: Present: normocephalic Eye: Present: EOMI, PERRL ENT: Present: mucous membranes moist - *Routine Neck Exam Present: supple - *Routine Respiratory Exam Present: wheezes Comments: Much better air movement with less wheezes. - *Routine Cardiovascular Exam Present: RRR - *Routine Abdominal Exam Present: soft, normoactive bowel sounds. Absent: tenderness - *Routine Extremities Exam Absent: cyanosis, clubbing, edema - *Routine Skin Exam Present: warm. Absent: rash - Detailed Eye Exam Eyelids: Bilateral normal inspection Results Labs on day of discharge: Labs from last 24 hours 07/20/19 07/20/19 06:55 06:55 WBC 18.2 H RBC 4.30 Hgb 12.1 L Hct 37.1 MCV 86.3 MCH 28.1 MCHC 32.5 RDW 13.1 Plt Count 304 MPV 7.6 Neut % (Auto) 92.1 H Lymph % (Auto) 4.6 L [place] % (Auto) 3.0 Eos % (Auto) 0.3 Baso % (Auto) 0.1 Neut # (Auto) 16.7 H Lymph # (Auto) 0.8 [place] # (Auto) 0.5 Eos # (Auto) 0.1 Baso # (Auto) 0.0 Total Counted 100 Neutrophils % (Manual) 86 H Band Neutrophils % 9.0 H Lymphocytes % (Manual) 5 L Platelet Estimate Normal RBC Morphology Normal Sodium 125 L Potassium 4.4 Chloride 93 L Carbon Dioxide 23 Anion Gap 13.4 BUN 21 H Creatinine 0.80 Estimated Creat Clear 62 Estimated GFR 72 Est GFR ( Amer) 87 Glucose 183 H Calcium 9.2 Preliminary micro results at discharge 07/19/19 01:46 Sputum Culture - Preliminary Sputum - Expectorated Sputum DS: Diagnosis - Discharge Diagnosis (1) Acute exacerbation of chronic obstructive airways disease Status: Acute (2) COPD (chronic obstructive pulmonary disease) Status: Acute (3) Dyspnea Status: Acute (4) Mycoplasma pneumonia Status: Acute Discharge Plan - Patient Discharge Instructions ACTIVITY: Continue current activity DIET: continue same diet Patient Instructions: DI for Chronic Obstructive Pulmonary Disease, DI
== END 2019-07-20 09:50 | disposition home or self-care (01) | DRG 190 ==
PROVIDERS: Admitting Provider Internal Medicine Adolescent Medicine; PCP Internal Medicine Adolescent Medicine; Visit Provider Internal Medicine Adolescent Medicine
DX: J44.0 Chronic obstructive pulmonary disease with (acute) lower respiratory infection (principal); J15.7 Pneumonia due to Mycoplasma pneumoniae; J44.1 Chronic obstructive pulmonary disease with (acute) exacerbation; Z87.891 Personal history of nicotine dependence; I10 Essential (primary) hypertension; Z79.899 Other long term (current) drug therapy
CPT/HCPCS: 36415; 71045; 80048; 80053; 82803; 83605; 83735; 84484; 85007; 85025; 85378; 86738; 87070; 87205; 93005; 94640; 94761; J0456

== ENCOUNTER → 2019-09-09 08:25 | Outpatient (CLI) | payer MEDICARE, SELFPAY ==
--- NOTE | 2019-09-09 08:29 | MM_ITS ---
PROCEDURE: MM DIG SCREENING MAMM BI W/CAD DIGITAL BREAST TOMOSYNTHESIS INCLUDED Patient Age:68Y CLINICAL INDICATION: ROUTINE MEDICAL EXAM Left breast: No significant change but Asymmetric fibroglandular elements at the COMPARISON: DIGMAMMDX MAMMOGRAM DX-CLEARING SUPERVISOR N/C from 06/29/2006 DIGMAMMS MAMMOGRAM SCREEN-CLEARING SUPERVISOR N/C from 02/06/2007 DMSB DIG MAMM-SCREEN GAGANDEEP from 11/04/2013 DMSB DIG MAMM-SCREEN GAGANDEEP from 12/22/2015 DMSB DIG MAMM-SCREEN GAGANDEEP W/CAD from 01/10/2017 DXRT MM Dig mamm DX unilat RT CAD from 08/22/2017 TECHNIQUE: Standard CC and MLO images were obtained. R2 CAD reviewed. Bilateral digital breast tomosynthesis included. FINDINGS: Moderate breast density. Moderate asymmetry. No suspicious calcifications. right breast. Right MLO view note small 6 mm focal density located at superiorly at mid breast.with slight irregular superior margin. It vaguely evident MLO tomosynthesis, but a small density here does persist (slice 45) . This density is less evident on standard CC views; but may be vaguely apparent cc tomosynthesis image 38-35. Suggest patient return for ultrasound and spot views of this area. Other scattered areas Of density in the right breast appear stable. Other areas of asymmetry appear stable as well Left breast: Stable No new findings of concern at left breast. Follow-up 1 year adequate on left. Stable asymmetric pattern with fibroglandular elements retroareolar region left breast unchanged in appearance IMPRESSION: Right breast: Small new focal area of density is noted today at the superior central right breast-best seen on MLO projection. Recommend ultrasound and spot views to further evaluate Left breast-. Stable. No new findings. Follow-up 1 year at left breast BI-RAD Category: 0 Need Additional Imaging Evaluation FOLLOW-UP: IMM Immediate Follow-up Recommended Right breast ultrasound and spot views (A letter has been sent to the patient regarding results of the study.) The the the the Dictated by: Mark Lizarraga MD 09/12/2019 10:00 Electronically signed by Mark Lizarraga MD in [place] 09/12/2019 10:00
--- NOTE | 2019-09-09 08:32 | XR_ITS ---
PROCEDURE: XR DEXA AXIAL SKELETON CLINICAL HISTORY: ROUTINE MEDICAL EXAM COMPARISON: No exams were available for comparison FINDINGS: The right hip BMD is 0.615 with a t-score of -2.7. The left hip BMD is 0.531 with a t-score of -2.9. The lumbar spine BMD is 0.933 with a t-score of -1.0. IMPRESSION: This patient is considered osteoporotic according to the World Health Organization criteria. Fracture risk is high. Treatment is advised. Based on these results of follow-up exam is recommended in 1 year Dictated by: Corey Smith MD 09/09/2019 23:09 Electronically signed by Corey Smith MD in [place] 09/10/2019 10:20
== END ==
PROVIDERS: PCP Internal Medicine Adolescent Medicine; Visit Provider Internal Medicine Adolescent Medicine
DX: Z12.31 Encounter for screening mammogram for malignant neoplasm of breast (principal); Z13.820 Encounter for screening for osteoporosis; Z78.0 Asymptomatic menopausal state
CPT/HCPCS: 77063; 77067; 77080

== ENCOUNTER → 2019-10-08 09:48 | Outpatient (CLI) | payer MEDICARE, SELFPAY ==
--- NOTE | 2019-10-08 09:52 | XR_ITS ---
PROCEDURE: XR CHEST 2V CLINICAL HISTORY: COPD EXACERBATION COMPARISON: CR XR CHEST PORTABLE from 03/17/[address] CHEST WO/W CON from 05/06/2019 CR XR CHEST 2V from 07/02/2019 CR XR CHEST PORTABLE from 07/18/2019 FINDINGS: The cardiomediastinal silhouette and pulmonary vascularity are within normal limits. COPD with chronic coarsening of the bronchovascular markings. Calcified granuloma is present in the right lower lobe. No lobar consolidation or collapse. There are surgical clips in the left upper quadrant. No acute bony abnormalities. IMPRESSION: COPD with chronic changes, no acute finding Dictated b Corey Smith MD 10/08/2019 14:01 Corey Smith MD in [place] 10/08/2019 14:01
== END ==
PROVIDERS: PCP Internal Medicine Adolescent Medicine; Visit Provider Internal Medicine Adolescent Medicine
DX: J44.1 Chronic obstructive pulmonary disease with (acute) exacerbation (principal)
CPT/HCPCS: 71046

== ENCOUNTER → 2019-10-10 09:15 | Outpatient (CLI) | payer MEDICARE, SELFPAY ==
[2019-10-10 10:59] LABS: Coronavirus 19 IgG Antibody Negative (Negative); Coronavirus 19 IgM Antibody Negative (Negative)
== END ==
PROVIDERS: Visit Provider Internal Medicine Gastroenterology
DX: Z01.818 Encounter for other preprocedural examination (principal); Z12.11 Encounter for screening for malignant neoplasm of colon
CPT/HCPCS: 36415; 86328

== ENCOUNTER 2019-10-13 11:19 | Day surgery (SDC) | payer MEDICARE, SELFPAY ==
[2019-10-09 12:26] VITALS: BMI 32.3
[2019-10-13 11:36] VITALS: BP 139/56; PULSE 63; RESP 18; TEMP 36.7; O2SAT 99
--- NOTE | 2019-10-13 12:29 | HMH.ANESCL ---
[facility] Anesthesia Checklist - Patient Identification Patient Identification: Arm Band, Verbal (Name & ) - Structural Data Admitted From: Home Planned Operative Procedure/s: Colonoscopy Consent for Planned Operative Procedure(s) Verified: Yes Verified Documents: Surgical Consent, History and Physical - NPO Status Verified Time NPO: 00:00 - Chart Verification Results Verified: None - Additional verifications Anesthesia Reactions: No - Airway Assessment C-Spine Mobility Assessed: Yes TMJ Mobility Assessed: Yes Dentition: Dentures-good fit (Upper) - Neurological Assessment Level of Consciousness: Awake, Alert, Appropriate, Follows Commands Hx Seizures: No Numbness or tingling in extremities: No - Anesthesia Plan Anesthesia Risk discussed: Yes Anesthesia Plan: Verified ASA Class: IV Anesthesia Type: MAC [facility] History I have reviewed the patient's past medical history: Yes Medical History: Reports:: Anxiety, Chronic Obstructive Pulmonary Disease (COPD), Depression, Gastroesophageal Reflux Disease(GERD), Hyperlipidemia, Hypertension Denies:: Cancer, Diabetes Mellitus Type 1, Diabetes Mellitus Type 2, Internal Pacemaker, MRSA, Seizures *Have you ever received a pneumonia vaccine?: Yes *Have you received a flu vaccine this season?: Yes Other Medical History: Reports: Anemia, Arthritis, Sinus Problems, Other (RLS) Comment:: Home oxygen Anesthesia experience/problems:: No prior complications Laterality Cases: Bilateral: Tonsillectomy Other Surgeries: Yes: Bariatric Surgery, Cardiac Catheterization, Cholecystectomy, Hysterectomy-Total. No: Pacemaker Amputation: No Fractures: No - *Social History Last grade of school completed: Some college Smoking Status: Former smoker Tobacco Type: cigarettes # Packs/Day (cigarettes): 1 #Yrs smoked (if former smoker): 55 Alcohol Intake: never Alcohol Intake Frequency:: holidays/special occasions only Substance Use Type: denies use *Occupational Status:: retired Housing: house Household Members: spouse *Travel in the last 8 weeks: None Family Hx:: Hyperlipidemia, Kidney Disease, Stroke
[2019-10-13 12:54] VITALS: O2SAT 97
--- NOTE | 2019-10-13 13:21 | HMH.PROC ---
[facility] Procedure Note Procedure Note:: Colonoscopy Procedure Report: Colonoscopy with cold snare polypectomy Endoscopist: Leonardo Mercedes II, MD Referring physician: Raleigh Valentine M.D. Date of Procedure: October 13, 2019 Equipment: Olympus 180 variable stiffness pediatric colonoscope Sedation: MAC sedation Indication: Mrs. Lundberg is a 69-year-old female who is here for follow-up screening/surveillance colonoscopy. The patient did have a colonoscopy more than 10 years ago and had some polyps removed at that time. She reports no abdominal pain, weight loss, change in her bowel habits or rectal bleeding. She does get intermittent diarrhea a couple of times weekly. She reports no family history of colon cancer. Procedure: Prior to the procedure, a history and physical exam was performed, and patient's medications and allergies were reviewed. The risks, benefits and alternatives of the sedation and procedure were discussed with the patient. All questions were answered and informed consent was obtained. The patient was brought to the procedure room. Patient identification and proposed procedure were verified by the physician and the nurse. The patient was placed in a left lateral decubitus position and the scope was passed under direct vision. Throughout the procedure, the patient's blood pressure, pulse, and oxygen saturations were monitored continuously. The colonoscopy was accomplished without difficulty. The patient tolerated the procedure well. Findings: On digital rectal examination there was normal rectal tone. There were no external hemorrhoids. The colonoscope was introduced through the anal canal to the rectum and advanced to the cecum. The ileocecal valve and appendiceal orifice were identified. The scope was advanced a short distance into the ileum which appeared grossly normal. The scope was then withdrawn into the colon. There were a total of 5 diminutive colon polyps (transverse x3 (3, 3 and 4 mm) and descending x2 (3 and 5 mm)) which were removed via cold snare polypectomy. There was mild melanosis coli. The remainder of the colonic mucosa was normal. Upon retroflexion within the rectum there were grade 1 internal hemorrhoids.The preparation was excellent throughout with Jennings Preparation Score of 9. The cecal time was 12 minutes. Impression: 1. Diminutive colonic polyps x5 2. Grade 1 internal hemorrhoids Plan: I will follow up the polyp pathology and recommend repeat colonoscopy again in 5 years based upon the polyp histology. I would encourage dietary measures and bulk fiber supplementation on a long-term daily maintenance basis.
[2019-10-13 13:23] VITALS: BP 100/55; PULSE 58; RESP 18; TEMP 36.2; O2SAT 96
[2019-10-13 13:36] VITALS: BP 124/70; PULSE 59; RESP 18; O2SAT 98
[2019-10-13 13:47] VITALS: BP 139/72; PULSE 58; RESP 18; O2SAT 97
[2019-10-13 14:01] VITALS: BP 138/67; PULSE 56; RESP 18; O2SAT 97
== END 2019-10-13 14:01 | disposition home or self-care (01) ==
LOC: OUTP 11:21
PROVIDERS: PCP Internal Medicine Adolescent Medicine; Visit Provider Internal Medicine Gastroenterology
PROC: 0DJD8ZZ Inspection of Lower Intestinal Tract, Via Natural or Artificial Opening Endoscopic (ICD-10-PCS; CPT 45378; principal; 2019-10-13 12:30)
DX: Z12.11 Encounter for screening for malignant neoplasm of colon (principal); K63.5 Polyp of colon; K64.0 First degree hemorrhoids; F41.9 Anxiety disorder, unspecified; J44.9 Chronic obstructive pulmonary disease, unspecified; K21.9 Gastro-esophageal reflux disease without esophagitis; E78.5 Hyperlipidemia, unspecified; I10 Essential (primary) hypertension; D64.9 Anemia, unspecified; Z90.89 Acquired absence of other organs; Z90.49 Acquired absence of other specified parts of digestive tract; Z90.710 Acquired absence of both cervix and uterus
CPT/HCPCS: 45385; 88305

== ENCOUNTER → 2019-10-17 10:57 | Outpatient (CLI) | payer MEDICARE, SELFPAY | PROVIDERS: PCP Internal Medicine Adolescent Medicine; Visit Provider Internal Medicine Adolescent Medicine | DX: J43.1 Panlobular emphysema (principal) | CPT/HCPCS: 94060; 94618; 94726; 94729 ==

== ENCOUNTER → 2019-10-22 11:41 | Outpatient (CLI) | payer MEDICARE, SELFPAY | PROVIDERS: PCP Internal Medicine Adolescent Medicine; Visit Provider Internal Medicine Pulmonary Disease | DX: J43.9 Emphysema, unspecified (principal); J47.9 Bronchiectasis, uncomplicated | CPT/HCPCS: 94762 ==

== ENCOUNTER → 2020-04-16 13:52 | Outpatient (CLI) | payer MEDICARE, SELFPAY ==
[2020-04-16 14:15] LABS: Basophils # 0.1 K/mm3 (0-0.2); Basophils % 1.3 % (0.1-2.0); Eosinophils # 0.4 K/mm3 (0.0-0.4); Eosinophils % 4.8 % (0.1-12.0); Hemoglobin 14.3 g/dL (12.2-16.2); Lymphocytes % 23.7 % (10-50); Mean Corpuscular Hemoglobin 28.3 pg (27.0-31.2); Mean Corpuscular Volume 91.3 fl (81-99); Mean Platelet Volume 7.8 fl (7.4-10.4); Monocytes # 0.4 K/mm3 (0.1-1.0); Monocytes % 4.9 % (1.7-9.3); Neutrophils # 5.6 K/mm3 (1.8-7.8); Neutrophils % 65.4 % (37.0-80.0); Platelet Count 278 K/mm3 (142-424); Red Blood Count 5.04 M/mm3 (4.20-5.40); Red Cell Distribution Width 12.9 % (11.5-17.5); White Blood Count 8.6 K/mm3 (4.8-10.8)
[2020-04-16 14:39] LABS: Chloride 104 mmol/L (98-107); Potassium 4.7 mmoL/L (3.5-5.1); Sodium 139 mmol/L (136-145)
[2020-04-16 14:41] LABS: Alanine Aminotransferase 18 U/L (12-78); Aspartate Amino Transferase 28 U/L (14-36); Blood Urea Nitrogen 26 mg/dl (7-17); Estimated Glomerular Filt Rate 49 ml/min (>60); GFR (African American) 60 ML/MIN (>60)
[2020-04-16 14:42] LABS: Albumin Level 4.5 g/dl (3.5-5.0); Albumin/Globulin Ratio 1.6 (1.1-1.8); Alkaline Phosphatase 120 U/L (38-126); Anion Gap 10.7 mEq/L (5-15); Bilirubin,Total 0.4 mg/dl (0.2-1.3); Carbon Dioxide 29 mmol/L (22.0-30.0); Globulin 2.9 g/dL (1.3-3.2); Glucose 109 mg/dl (74-100); Total Protein,Serum 7.4 g/dl (6.3-8.2)
[2020-04-16 14:50] LABS: NT Pro Brain Natriuretic Pep. 263 pg/mL (0-125)
== END ==
PROVIDERS: Visit Provider Internal Medicine Adolescent Medicine
DX: I50.30 Unspecified diastolic (congestive) heart failure (principal)
CPT/HCPCS: 36415; 80053; 83880; 85025

== ENCOUNTER → 2020-12-23 13:23 | Outpatient (CLI) | payer MEDICARE, OTHER, SELFPAY ==
--- NOTE | 2020-12-23 13:28 | XR_ITS ---
PROCEDURE: XR FOOT LT MIN 3V CLINICAL INDICATION: LT FOOT PAIN COMPARISON: No exams were available for comparison FINDINGS: No fracture or dislocation. No lytic or blastic change. There is normal mineralization. The joint spaces are well-preserved. No significant degenerative/arthritic changes. No erosive changes evident. Other findings:There is a small calcaneal spur. Accessory ossicles are present at the calcaneocuboid region. IMPRESSION: No acute findings. Dictated by: Corey Smith MD 12/23/2020 13:46 Corey Smith MD in [place] 12/23/2020 13:46
== END ==
PROVIDERS: PCP Internal Medicine Adolescent Medicine; Visit Provider Internal Medicine Adolescent Medicine
DX: M79.672 Pain in left foot (principal)
CPT/HCPCS: 73630

== ENCOUNTER 2021-06-02 10:06 | Observation (INO) | payer MEDICARE, OTHER, SELFPAY ==
[2021-06-02] VITALS (9 sets, daily range): BP systolic 150–164; BP diastolic 77–90; PULSE 68–88; RESP 16–19; TEMP 36.5–36.9; O2SAT 95–99; BMI 28.9
--- NOTE | 2021-06-02 09:00 | XR_ITS ---
FINAL REPORT CLINICAL HISTORY: COPD,JIESEMHector, SOB COMPARISON: October 08, 2019 FINDINGS: Two views of the chest were obtained. The heart size and pulmonary vascularity are within normal limits. The mediastinum is normal. The lungs are hyperinflated consistent with COPD. There are mild left lung base opacities consistent with mild scarring or atelectasis. There is no pneumothorax. There are postoperative changes of the left upper quadrant. IMPRESSION: Mild left lung base opacities consistent with mild scarring or atelectasis. Reviewed, Interpreted and Dictated by Gary Walter III, MD Transcribed by Jeremie Rosario Authenticated by Gary Walter III, MD on 06/02/2021 10:15:27 AM [facility]
[2021-06-02 10:42] LABS: Coronavirus 19, PCR Not Detected (NotDetected); Influenza A, PCR Not Detected (NotDetected); Influenza B, PCR Not Detected (NotDetected)
--- NOTE | 2021-06-02 11:07 | CT_ITS ---
FINAL REPORT TECHNIQUE: Then section axial CT images of the chest were obtained with contrast. Three-D reformatted images were also obtained.This study was performed with techniques to keep radiation doses as low as reasonably achievable (ALARA). Individualized dose reduction techniques using automated exposure control or adjustment of mA and/or kV according to the patient''s size were employed. CLINICAL HISTORY: dyspnea FINDINGS: There is a small pulmonary embolus in the left descending pulmonary artery. The clot burden is small. There is no evidence of thoracic aortic aneurysm or dissection. There are borderline sized right hilar lymph nodes favored to be reactive. There are multi focal nodular pulmonary opacities bilaterally but greatest in the lung bases worrisome for mycobacterial/ fungal disease or multi focal pneumonia. There is mild diffuse bronchial wall thickening consistent with bronchitis. Limited images of the upper abdomen demonstrate postoperative change in the left upper quadrant. IMPRESSION: Small pulmonary embolus in the left descending pulmonary artery. Clot burden is small. Multifocal nodular pulmonary opacities bilaterally worrisome for mycobacterial / fungal disease or multi focal pneumonia. Bronchitis. Reviewed, Interpreted and Dictated by Gary Walter III, MD Transcribed by Jeremie Rosario Authenticated by Gary Walter III, MD on 06/02/2021 04:05:53 PM [facility]
--- NOTE | 2021-06-02 11:07 | CA_ITS ---
APPROVED REPORT EXAM: Comprehensive 2D, Doppler, and color-flow Echocardiogram Business Account Manager: Dawna Rubio RT(R) Ht: 4 ft 11 in Wt: 144lbs BSA: 1.60 BP: 150/90 mmHg Indications: COPD, ex smoker, edema, HTN, REID, hyperlipidemia, GERD, CHF 2D Dimensions LVOT 1.91 cm (M/F) 1.5-2.5 LVEF (Mackenzie's) 59.70 % F: 54 - 74 LV Volume 49.10 mL F: 46 - 106 LV Volume Index 30.68 mL/m2 F: 29 - 61 M-Mode Dimensions RVDd 2.00 cm (0.9-2.6) LA Diam 3.11 cm (1.9-4.0) LVDd 4.32 cm (3.5-5.7) Ao Diam 2.99 cm (2.0-3.7) LVDs 2.92 cm (3.5-5.7) IVSd 0.72 cm (0.6-1.1) PWd 0.84 cm (0.6-1.1) EF (Teich) 61.00% FS 32.40% EDV (Teich) 84.00 mL ESV (Teich) 32.80 mL LV Diastology E Decel Time 213.00 (160-240 msec) E/A Ratio 0.8 MED E' 10.20 (< 7 cm/sec) E'/MED E' Ratio 5.88 (>14) LAT E' 8.60 (<10 cm/sec) E/LAT E' Ratio 6.98 (>14) Mitral Valve MV E Max Syed. 60.00 (40-130 cm/s) MV A Velocity 76.00 (40-130 cm/s) E/A Ratio 0.79 MV Decel. Time 213.00 (160-240 ms) MV PHT 62.00 ms Tricuspid Valve TR P. Velocity 213.00 cm/s RAP Estimate 10.00 mmHg RVSP 28.20 mmHg Left Ventricle Left atrium is mildly enlarged, left ventricle is normal size, mild concentric left ventricular hypertrophy, estimated ejection fraction 55% with no regional wall motion abnormality, grade 1 diastolic dysfunction seen without tissue Doppler evidence of raise left atrial pressure. Right Ventricle Right atrium and right ventricle are normal size and contractility. Aortic Valve Aortic valve is minimally thickened and calcified without aortic stenosis or aortic insufficiency. Mitral Valve Mitral valve is grossly normal, there is trace mitral regurgitation. Tricuspid Valve Tricuspid grossly normal, there is trace tricuspid regurgitation, tricuspid regurgitation jet velocity is inadequate for calculation of the right ventricular systolic pressure. Pulmonic Valve Pulmonic valve is poorly visualized. Great Vessels Aortic root is normal size. Inferior vena cava is poorly visualized. Pericardium No significant pericardial effusion noted. Conclusion 1. Mildly enlarged left atrium, normal left ventricular size, mild concentric left ventricular hypertrophy visually estimated ejection fraction 55% with no regional wall motion abnormality, grade 1 diastolic dysfunction seen without tissue Doppler evidence of raise left atrial pressure. 2. Thickened and calcified aortic valve without aortic stenosis or aortic insufficiency. 3. Trace mitral and tricuspid regurgitation. 4. No significant pericardial effusion. 5. Inferior vena cava is poorly visualized. Electronically signed by : Solitario Richter MD 06/03/2021 15:14:17
--- NOTE | 2021-06-02 11:18 | P.CONPHA_ITS ---
[facility] Pharmacy VTE Monitoring - Patient Demographics Admission date: 06/02/21 Report Date: 06/02/21 Time: 11:18 Allergies/Adverse Reactions: Patient Allergies No Known Allergies Allergy (Verified 10/21/19 10:53) Height: 1.5 m Weight: 64.92 kg - VTE Risk VTE Score: 8 VTE Risk Level: Moderate Risk - Prophylaxis VTE Prophylaxis Ordered?: Yes Types of VTE Prophylaxis: TEDS Knee High Location of Applied Device: Bilateral Lower Extremeties
--- NOTE | 2021-06-02 11:28 | ECG_ITS ---
APPROVED REPORT Exam: Resting ECG HR:75 bpm ECG Measurements Heart Rate 75 AXES VA 126 P 54 QRSd 72 QRS 5 QT 351 T 72 QTc 379 Conclusion SINUS RHYTHM LOW QRS VOLTAGE [QRS DEFLECTION < 0.5/1.0 mV IN LIMB/CHEST LEADS] POSSIBLE ANTERIOR MYOCARDIAL INFARCTION , PROBABLY OLD [30 ms Q WAVE IN V3/V4, OR R < 0.2 mV IN V4] ABNORMAL ECG UNCONFIRMED REPORT Electronically signed by : Raleigh Valentine MD 06/04/2021 08:17:42
[2021-06-02 12:49] LABS: NT Pro Brain Natriuretic Pep. 3900 pg/mL (0-125)
[2021-06-02 13:20] LABS: Chloride 101 mmol/L (98-107)
--- NOTE | 2021-06-02 13:20 | HMH.PHAINT ---
MEDICATION RECONCILIATION COMPLETED ON PATIENT USING EXTERNAL FILL HISTORY FROM PHARMACY AND PATIENT INTERVIEW. -GERMANIA HAWKINS, CIERAD
[2021-06-02 13:21] LABS: Potassium 4.7 mmoL/L (3.5-5.1); Sodium 134 mmol/L (136-145)
[2021-06-02 13:23] LABS: Alanine Aminotransferase 42 U/L (12-78); Albumin Level 3.4 g/dl (3.5-5.0); Albumin/Globulin Ratio 1.1 (1.1-1.8); Alkaline Phosphatase 186 U/L (38-126); Anion Gap 8.7 mEq/L (5-15); Aspartate Amino Transferase 35 U/L (14-36); Bilirubin,Total 0.3 mg/dl (0.2-1.3); Blood Urea Nitrogen 21 mg/dl (7-17); Carbon Dioxide 29 mmol/L (22.0-30.0); Creatinine Clearance Estimated 54 mL/min (50-200); Estimated Glomerular Filt Rate 71 ml/min (>60); GFR (African American) 86 ML/MIN (>60); Glucose 157 mg/dl (74-100); Lactic Acid 1.5 mmol/L (0.7-2.1); Total Protein,Serum 6.4 g/dl (6.3-8.2)
[2021-06-02 13:24] LABS: Calcium 8.6 mg/dl (8.4-10.2); Magnesium 1.6 mg/dl (1.6-2.3)
[2021-06-02 13:25] LABS: Basophils # 0.2 K/mm3 (0-0.2); Basophils % 1.3 % (0.1-2.0); Eosinophils % 0.3 % (0.1-12.0); Hematocrit 46.1 % (37.0-47.0); Hemoglobin 14.4 g/dL (12.2-16.2); Lymphocytes # 1.6 K/mm3 (0.7-4.5); Mean Corpuscular HGB Conc 31.3 g/dL (31.8-35.4); Mean Corpuscular Hemoglobin 29.5 pg (27.0-31.2); Mean Corpuscular Volume 94.2 fl (81-99); Monocytes # 0.4 K/mm3 (0.1-1.0); Monocytes % 2.8 % (1.7-9.3); Neutrophils # 10.9 K/mm3 (1.8-7.8); Neutrophils % 83.6 % (37.0-80.0); Platelet Count 567 K/mm3 (142-424); Red Blood Count 4.89 M/mm3 (4.20-5.40); Red Cell Distribution Width 12.9 % (11.5-17.5); White Blood Count 13.1 K/mm3 (4.8-10.8)
--- NOTE | 2021-06-02 13:31 | HMH.ITSTN ---
Spoke with patient's nurse, Jean Carlos, at 1:30 after labs came back. Patient is getting ready to get an echo. He will call me when I can come get her for the PE study
[2021-06-02 13:48] LABS: Mycoplasma Pneumo IGM (Rapid) Reactive (Non-Reactiv)
[2021-06-02 14:36] LABS: Troponin I < 0.01 ng/ml (0.00-0.034)
--- NOTE | 2021-06-02 15:22 | HMH.HP ---
*Admission Date: 06/02/21 *Chief complaint: Persistent shortness of air *History of present illness: 70-year-old female with long history of emphysema who was seen in our office a couple of times over the past week, initially with a viral type syndrome of vomiting which resolved but 3 days ago with cough, congestion and sputum production along with slightly worsened hypoxia and increased work of breathing, diagnosed with COPD exacerbation and treated with ceftriaxone injection and p.o. doxycycline along with prednisone. Came back to the office today and is not better. Has gained 6 pounds over the past couple of days, increasing peripheral edema, increased work of breathing without sputum production and crackles in her chest. Clinically is having a CHF exacerbation versus worsening COPD exacerbation and admitted to hospital for further diagnostic testing, medication adjustment and IV therapy given her failed p.o. therapy. [facility] History I have reviewed the patient's past medical history: Yes Medical History: Reports:: Anxiety, Chronic Obstructive Pulmonary Disease (COPD), Depression, Gastroesophageal Reflux Disease(GERD), Hyperlipidemia, Hypertension Denies:: Cancer, Diabetes Mellitus Type 1, Diabetes Mellitus Type 2, Internal Pacemaker, MRSA, Seizures *Have you ever received a pneumonia vaccine?: No *Have you received a flu vaccine this season?: Yes Other Medical History: Reports: Anemia, Arthritis, Sinus Problems, Other (RLS) Laterality Cases: Bilateral: Tonsillectomy Other Surgeries: Yes: Bariatric Surgery, Cardiac Catheterization, Cholecystectomy, Hysterectomy-Total. No: Pacemaker Amputation: No Fractures: No - *Social History Smoking Status: Former smoker Tobacco Type: cigarettes # Packs/Day (cigarettes): 1 #Yrs smoked (if former smoker): 55 Alcohol Intake: never Alcohol Intake Frequency:: holidays/special occasions only Substance Use Type: denies use *Occupational Status:: retired Housing: house Household Members: spouse *Travel in the last 8 weeks: None - Psychiatric History Pschychiatric History:: Reports:: Anxiety, Depression Family Hx:: Hyperlipidemia, Kidney Disease, Stroke Review of Systems - Review of Systems Review of systems:: pertinent systems reviewed and negative unless documented below Meds Home Medications Medication Instructions Recorded Confirmed Type Gabapentin [Gabapentin 300mg Cap] 600 mg PO HS 03/16/19 06/02/21 History Pramipexole Di-HCl [Mirapex] 0.5 mg PO HS 03/17/19 06/02/21 History Irbesartan [Avapro 75mg 75 mg PO DAILY 07/18/19 06/02/21 History tablet] Albuterol Sulfate [Proventil Hfa] 2 puffs IH Q6HP PRN 06/02/21 06/02/21 History Doxycycline Hyclate [Doxycycline 100 mg PO BID 06/02/21 06/02/21 History Hyclate 100mg Tablet] Fluticasone/Umeclidin/Vilanter 1 puff IH DAILY 06/02/21 06/02/21 History [Trelegy Ellipta 100-62.5-25] Promethazine/Dextromethorphan 5 ml PO Q6H PRN 06/02/21 06/02/21 History [Promethazine-Dm Syrup] buPROPion HCL [Bupropion Xl] 300 mg PO DAILY 06/02/21 06/02/21 History predniSONE [Prednisone 20mg 20 mg PO DIRECTED 06/02/21 06/02/21 History Tab] Allergies Allergy/AdvReac Type Severity Reaction Status Date / Time No Known Allergies Allergy Verified 10/21/19 10:53 Exam Vital signs and Labs for Last 24 Hours: Temp Pulse Resp BP Pulse Ox 98.4 F 84 17 164/80 H 96 06/02/21 12:00 06/02/21 12:00 06/02/21 12:00 06/02/21 12:00 06/02/21 12:00 Laboratory Results - last 24 hr 06/02/21 10:37: SARS-CoV-2 (PCR) Not detected, Influenza A Untype (PCR) Not detected, Influenza Type B (PCR) Not detected 06/02/21 11:48: NT-Pro-B Natriuret Pep 3900 H 06/02/21 13:00: WBC 13.1 H, RBC 4.89, Hgb 14.4, Hct 46.1, MCV 94.2, MCH 29.5, MCHC 31.3 L, RDW 12.9, Plt Count 567 H, MPV 8.0, Neut % (Auto) 83.6 H, Lymph % (Auto) 12.0, Burnet % (Auto) 2.8, Eos % (Auto) 0.3, Baso % (Auto) 1.3, Neut # (Auto) 10.9 H, Lymph # (Auto) 1.6, Burnet # (Auto) 0.4, Eos
--- NOTE | 2021-06-02 17:51 | PC.NURSE ---
turn pt o2 down to 2lpm n/c
[2021-06-02 18:22] LABS: Troponin I < 0.01 ng/ml (0.00-0.034)
[2021-06-03] VITALS: BP 140/73; PULSE 86; RESP 16; TEMP 36.8; O2SAT 96
[2021-06-03 04:00] VITALS: BP 125/77; PULSE 77; RESP 16; TEMP 36.7; O2SAT 97
[2021-06-03 05:00] VITALS: BMI 29.1
[2021-06-03 06:01] VITALS: PULSE 81; PULSE 83; O2SAT 95
[2021-06-03 07:32] VITALS: BP 136/68; PULSE 92; RESP 17; TEMP 36.6; O2SAT 94
[2021-06-03 08:00] LABS: Basophils # 0.4 K/mm3 (0-0.2); Basophils % 2.1 % (0.1-2.0); Eosinophils # 0.3 K/mm3 (0.0-0.4); Eosinophils % 1.6 % (0.1-12.0); Hematocrit 43.2 % (37.0-47.0); Hemoglobin 14.1 g/dL (12.2-16.2); Lymphocytes % 30.2 % (10-50); Mean Corpuscular HGB Conc 32.6 g/dL (31.8-35.4); Mean Platelet Volume 8.5 fl (7.4-10.4); Monocytes # 1.1 K/mm3 (0.1-1.0); Monocytes % 6.8 % (1.7-9.3); Neutrophils # 9.9 K/mm3 (1.8-7.8); Neutrophils % 59.3 % (37.0-80.0); Platelet Count 557 K/mm3 (142-424); Red Cell Distribution Width 13.1 % (11.5-17.5); White Blood Count 16.7 K/mm3 (4.8-10.8)
[2021-06-03 08:01] LABS: MANUAL DIFFERENTIAL MANUAL DIFFERENTIAL (MANUAL DIFF)
[2021-06-03 08:24] LABS: Chloride 101 mmol/L (98-107); Sodium 133 mmol/L (136-145)
[2021-06-03 08:27] LABS: Blood Urea Nitrogen 20 mg/dl (7-17); Carbon Dioxide 25 mmol/L (22.0-30.0); Creatinine Clearance Estimated 55 mL/min (50-200); Estimated Glomerular Filt Rate 99 ml/min (>60); GFR (African American) 120 ML/MIN (>60); Glucose 141 mg/dl (74-100); Magnesium 1.5 mg/dl (1.6-2.3)
--- NOTE | 2021-06-03 08:47 | HMH.DCSUM ---
General - General Admission date:: 06/02/21 Discharge date: 06/03/21 HPI HPI: 70-year-old female with long history of emphysema who was seen in our office a couple of times over the past week, initially with a viral type syndrome of vomiting which resolved but 3 days ago with cough, congestion and sputum production along with slightly worsened hypoxia and increased work of breathing, diagnosed with COPD exacerbation and treated with ceftriaxone injection and p.o. doxycycline along with prednisone. Came back to the office today and is not better. Has gained 6 pounds over the past couple of days, increasing peripheral edema, increased work of breathing without sputum production and crackles in her chest. Clinically is having a CHF exacerbation versus worsening COPD exacerbation and admitted to hospital for further diagnostic testing, medication adjustment and IV therapy given her failed p.o. therapy. Hospital Course Hospital Course: 70-year-old female with respiratory illness that progressed to CHF exacerbation. Presents with increased oxygen requirement and clinical findings of volume overload/CHF exacerbation. Responded very well to IV diuresis since admission. Breathing more comfortably. Cultures negative to date. Has remained afebrile. Tolerating good p.o. intake. Shared decision making with patient, given her clinical improvement, will plan to discharge home in medically stable condition with close follow-up in the outpatient setting. Will complete an empiric course of antibiotics. Continue breathing treatments at home. Decision on further diuresis will be made in the outpatient setting at follow-up. Examined on day of discharge. Objective Vital signs: Temp Pulse Resp BP Pulse Ox 97.8 F 92 H 17 136/68 94 L 06/03/21 07:32 06/03/21 07:32 06/03/21 07:32 06/03/21 07:32 06/03/21 07:32 Narrative: - Constitutional no acute distress, Overweight - *Routine HEENT Exam Head: Present: normocephalic Eye: Present: EOMI, PERRL ENT: Present: mucous membranes moist - *Routine Neck Exam Present: supple. Absent: lymphadenopathy - *Routine Respiratory Exam Present: prolonged expiratory phase, no rhonchi or rales - *Routine Cardiovascular Exam Present: RRR - *Routine Abdominal Exam Present: soft, normoactive bowel sounds. Absent: tenderness - *Routine Extremities Exam Present: intervally improved edema. Absent: cyanosis, clubbing - *Routine Skin Exam Present: warm. Absent: rash - *Routine Neurological Exam Present: alert, oriented X3 Results Labs on day of discharge: Labs from last 24 hours 06/03/21 06/03/21 06/02/21 07:45 07:45 17:42 WBC 16.7 H D RBC 4.70 Hgb 14.1 Hct 43.2 MCV 92.0 MCH 30.0 MCHC 32.6 RDW 13.1 Plt Count 557 H MPV 8.5 Neut % (Auto) 59.3 Lymph % (Auto) 30.2 Douglas % (Auto) 6.8 Eos % (Auto) 1.6 Baso % (Auto) 2.1 H Neut # (Auto) 9.9 H Lymph # (Auto) 5.0 H Douglas # (Auto) 1.1 H Eos # (Auto) 0.3 Baso # (Auto) 0.4 H Sodium 133 L Potassium 5.0 Chloride 101 Carbon Dioxide 25 Anion Gap 12.0 BUN 20 H Creatinine 0.60 D Estimated Creat Clear 55 Estimated GFR 99 Est GFR ( Amer) 120 D Glucose 141 H Lactate Calcium 8.0 L Magnesium 1.5 L Total Bilirubin AST ALT Alkaline Phosphatase Troponin I < 0.01 NT-Pro-B Natriuret Pep Total Protein Albumin Globulin Albumin/Globulin Ratio SARS-CoV-2 (PCR) Influenza A Untype (PCR) Influenza Type B (PCR) Mycoplasma pneumon IgM 06/02/21 06/02/21 06/02/21 13:00 13:00 13:00 WBC RBC Hgb Hct MCV MCH MCHC RDW Plt Count MPV Neut % (Auto) Lymph % (Auto) Douglas % (Auto) Eos % (Auto) Baso % (Auto) Neut # (Auto) Lymph # (Auto) Douglas # (Auto) Eos # (Auto) Baso # (Auto) Sodium Potassium Chlo
[2021-06-03 08:49] LABS: Eosinophils % 1 % (0-3); Lymphocytes % 51 % (10-50); Monocytes % 4 % (2-9); Neutrophils % 44 % (42-76); Total Cells Counted 100
[2021-06-03 08:51] LABS: Platelet Estimate Normal
--- NOTE | 2021-06-03 10:10 | HMH.PTEV ---
Physical Therapy Evaluation Rehab PT IP Evaluation Start: 06/03/21 10:05 Freq: ONCE Status: Active Protocol: Document 06/03/21 10:08 SHAHRAM (Rec: 06/03/21 10:10 SHAHRAM [id number]) Subjective/History History History 70 yowf adm to [facility] with COPD and CHF exac. She reports she lives alone and is independent with all mobility without AD. Subjective Subjective No c/o this am, feeling better . Rehab PT IP Eval Objective Appearance Patient Behavior Appropriate Patient Orientation Person,Place,Time Difficulty following instructions none Speech Pattern Clear Ambulation Patient Able to Ambulate Yes Ambulation Observation IP General Gait Pattern Observation No Deviations/Normal Ambulation Distance (feet) 30 Ambulation Assistive Device None Ambulation Ability Independent Balance Ability to Arise Able, uses arms to help Sitting Balance Steady, safe Standing Balance Steady, wide stance Dynamic Sitting Balance Ability Normal Dynamic Standing Balance Ability Normal Transfers Bed Transfer Ability Independent Chair Transfer Ability Independent Sit to Stand Bed Transfer Ability Independent Sit to Stand Chair Transfer Ability Independent ROM All Extremities PT ROM Status WFL MMT All Extremities PT MMT WFL Rehab PT IP prob,goals,plan Problems Date of Evaluation: 06/03/21 Discharge Plan PT Discharge Plan Pt is at baseline for all mobility at this time and is appropriate to return home once medically stable. G -code Required No Eval Complexity Eval Charge Codes 08915 - Moderate Complexity PHYSICIAN CERTIFICATION: I certify the specified therapy services for Cecilia Lundberg are required, authorized, and reviewed every 30 days.
[2021-06-03 11:01] VITALS: BP 127/72; PULSE 92; RESP 17; TEMP 36.9; O2SAT 95
[2021-06-03 11:55] VITALS: BMI 28.8
[2021-06-03 12:56] VITALS: PULSE 112; PULSE 120; RESP 18; O2SAT 92
--- NOTE | 2021-06-03 14:45 | HMH.PHAINT ---
DISCHARGE MEDICATION COUNSELING PROVIDED. DISCUSSED AZITHROMYCIN AND DUONEBS, STOP THE DOXYCYCLINE AND PREDNISONE. PATIENT ENDORSED NO QUESTIONS AT THIS TIME.
--- NOTE | 2021-06-06 14:31 | CARE MANAGER ---
Spoke with patient for follow-up from hospital stay and patient states that she went back to see MD today. Patient also states that she got her meds and has no issues at this time.
== END 2021-06-03 15:00 | disposition home or self-care (01) ==
LOC: 2ND 10:06
PROVIDERS: Internal Medicine Adolescent Medicine; Admitting Provider Internal Medicine Adolescent Medicine; PCP Internal Medicine Adolescent Medicine; Visit Provider Internal Medicine Adolescent Medicine
DX: J44.1 Chronic obstructive pulmonary disease with (acute) exacerbation (principal); I50.41 Acute combined systolic (congestive) and diastolic (congestive) heart failure; K21.9 Gastro-esophageal reflux disease without esophagitis; E78.5 Hyperlipidemia, unspecified; Z87.891 Personal history of nicotine dependence; I11.0 Hypertensive heart disease with heart failure; Z79.899 Other long term (current) drug therapy; Z20.822 Contact with and (suspected) exposure to COVID-19
CPT/HCPCS: G0378; G0379; 36415; 71046; 71275; 80048; 80053; 83605; 83735; 83880; 84484; 85007; 85025; 86738; 87040; 93005; 93306; 94640; 97162; C9803; J0456; J1956; J3475; Q9967; U0003; U0005

== ENCOUNTER 2021-08-23 13:50 | Emergency (ER) | payer MEDICARE, OTHER, SELFPAY ==
[2021-08-23 13:51] VITALS: BP 171/96; PULSE 101; RESP 24; TEMP 37.6; O2SAT 96; BMI 29.2
--- NOTE | 2021-08-23 13:58 | ECG_ITS ---
APPROVED REPORT Exam: Resting ECG HR:101 bpm ECG Measurements Heart Rate 101 AXES IL 135 P 71 QRSd 75 QRS 37 QT 306 T 79 QTc 364 Conclusion SINUS TACHYCARDIA LOW QRS VOLTAGE [QRS DEFLECTION < 0.5/1.0 mV IN LIMB/CHEST LEADS] ABNORMAL ECG UNCONFIRMED REPORT Electronically signed by : Raleigh Valentine MD 08/24/2021 14:40:21
[2021-08-23 14:10] VITALS: BMI 29.2
[2021-08-23 14:15] VITALS: BP 174/96; PULSE 93; O2SAT 96
--- NOTE | 2021-08-23 14:17 | XR_ITS ---
FINAL REPORT CLINICAL HISTORY: soa, productive cough, copd COMPARISON: June 02, 2021 FINDINGS: Two views of the chest were obtained. The heart is within normal limits. The mediastinum is normal. There is worsening pulmonary vascular congestion. There are worsening pulmonary opacities. There is no pneumothorax. The bony thorax is intact. IMPRESSION: Worsening pulmonary vascular congestion with worsening pulmonary opacities that could represent edema or pneumonia. Reviewed, Interpreted and Dictated by Gary Walter III, MD Transcribed by Jeremie Rosario Authenticated and [facility]
[2021-08-23 14:29] LABS: Basophils # 0.1 K/mm3 (0-0.2); Basophils % 0.5 % (0.1-2.0); Eosinophils # 0.1 K/mm3 (0.0-0.4); Eosinophils % 0.8 % (0.1-12.0); Hematocrit 46.8 % (37.0-47.0); Hemoglobin 15.2 g/dL (12.2-16.2); Lymphocytes # 1.4 K/mm3 (0.7-4.5); Lymphocytes % 11.3 % (10-50); Mean Corpuscular HGB Conc 32.5 g/dL (31.8-35.4); Mean Corpuscular Hemoglobin 29.9 pg (27.0-31.2); Mean Corpuscular Volume 92.1 fl (81-99); Mean Platelet Volume 8.4 fl (7.4-10.4); Monocytes # 0.5 K/mm3 (0.1-1.0); Monocytes % 4.3 % (1.7-9.3); Neutrophils % 83.2 % (37.0-80.0); Platelet Count 319 K/mm3 (142-424); Red Blood Count 5.09 M/mm3 (4.20-5.40); Red Cell Distribution Width 13.4 % (11.5-17.5)
[2021-08-23 14:30] VITALS: BP 160/82; PULSE 100; RESP 32; O2SAT 97
[2021-08-23 14:34] LABS: Chloride 98 mmol/L (98-107); Sodium 132 mmol/L (136-145)
[2021-08-23 14:36] LABS: Blood Urea Nitrogen 9 mg/dl (7-17); Creatinine Clearance Estimated 55 mL/min (50-200); Estimated Glomerular Filt Rate 122 ml/min (>60); GFR (African American) 148 ML/MIN (>60)
[2021-08-23 14:37] LABS: Alanine Aminotransferase 45 U/L (12-78); Albumin Level 3.8 g/dl (3.5-5.0); Albumin/Globulin Ratio 1.1 (1.1-1.8); Alkaline Phosphatase 237 U/L (38-126); Aspartate Amino Transferase 57 U/L (14-36); Bilirubin,Total 0.6 mg/dl (0.2-1.3); Calcium 9.7 mg/dl (8.4-10.2); Globulin 3.5 g/dL (1.3-3.2); Glucose 128 mg/dl (74-100); Total Protein,Serum 7.3 g/dl (6.3-8.2)
[2021-08-23 14:47] LABS: NT Pro Brain Natriuretic Pep. 4900 pg/mL (0-125)
--- NOTE | 2021-08-23 14:53 | PC.NURSE ---
pt to radiology by wheelchair with emissions testing technician
--- NOTE | 2021-08-23 14:59 | PC.NURSE ---
pt returned from radiology by wheelchair with cooking appliance repair technician
[2021-08-23 15:05] LABS: Troponin I < 0.01 ng/ml (0.00-0.034)
[2021-08-23 15:16] LABS: Carbon Dioxide 27 mmol/L (22.0-30.0)
--- NOTE | 2021-08-23 15:45 | HMH.EDGENADL ---
ED Disposition Clinical Impression: COPD exacerbation, Pneumonia Disposition: Home, Self-Care Condition on Discharge: Good Instructions: Pneumonia-Adult, DI for Chronic Obstructive Pulmonary Disease Additional Instructions: Please follow-up with your primary care physician in 2 to 3 days for further management. Please utilize your steroids and antibiotic as prescribed. Please return for any concerning symptoms such as difficulty breathing, chest pain, increased oxygen requirement or any other concerning symptoms. Please continue to utilize your Xarelto as prescribed. Prescriptions: Amoxicillin/Potassium Clav [Augmentin 500mg tab] 500 mg PO TID #21 tab Transmission Status: Received by [id number] Azithromycin [Azithromycin 500mg Tab] 500 mg PO DAILY #5 tab Transmission Status: Received by [id number] predniSONE [Prednisone 10mg Tab Dose-Pack] 10 mg PO UD DOSE PK #1 predniSONE [Prednisone 10mg Tab Dose-Pack] 10 mg PO UD DOSE PK 5 Days #1 each Transmission Status: Received by [id number] Referrals: Raleigh Valentine MD [Primary Care Provider] - - Critical Care Critical Care Time: No Attestation: On 08/23/21, the high probability of a clinically significant, sudden or life threatening deterioration of the following system(s) required my full and direct attention, intervention and personal management. The time I documented below is in addition to time spent performing reported procedures but includes the following listed in this critical care notation. Medical Decision Making - Medical Records Medical records reviewed: Yes: I reviewed the patient's medical records. - Nima Inquiry Pt receiving controlled substance: No Vital Signs: 08/23/21 13:51 08/23/21 14:15 08/23/21 14:30 Temperature 99.7 F H Temperature Source Oral Pulse Rate 93 H 100 H Pulse Rate [Left Radial] 101 H Respiratory Rate 24 32 H Blood Pressure 174/96 H 160/82 H Blood Pressure [Right Arm] 171/96 H Blood Pressure Mean 119 Blood Pressure Mean [Right Arm] 121 Blood Pressure Source [Right Arm] Automatic Cuff Blood Pressure Position [Right Arm] Sitting 02 Sat by Pulse Oximetry 96 96 97 Oxygen Delivery Method Nasal Cannula Nasal Cannula Oxygen Flow Rate (LPM) 3 2 08/23/21 16:30 Temperature 98.6 F Temperature Source Pulse Rate 100 H Pulse Rate [Left Radial] Respiratory Rate 24 Blood Pressure 173/80 H Blood Pressure [Right Arm] Blood Pressure Mean Blood Pressure Mean [Right Arm] Blood Pressure Source [Right Arm] Blood Pressure Position [Right Arm] 02 Sat by Pulse Oximetry Oxygen Delivery Method Oxygen Flow Rate (LPM) - Lab Data Lab results reviewed: Yes: I reviewed the patient's lab results. Lab Results 08/23/21 14:00: WBC 12.0 H, RBC 5.09, Hgb 15.2, Hct 46.8, MCV 92.1, MCH 29.9, MCHC 32.5, RDW 13.4, Plt Count 319, MPV 8.4, Neut % (Auto) 83.2 H, Lymph % (Auto) 11.3, [place] % (Auto) 4.3, Eos % (Auto) 0.8, Baso % (Auto) 0.5, Neut # (Auto) 10.0 H, Lymph # (Auto) 1.4, [place] # (Auto) 0.5, Eos # (Auto) 0.1, Baso # (Auto) 0.1 08/23/21 14:00: Sodium 132 L, Potassium 4.0, Chloride 98, Carbon Dioxide 27, Anion Gap 11.0, BUN 9, Creatinine 0.50 L, Estimated Creat Clear 55, Estimated GFR 122, Est GFR ( Amer) 148, Glucose 128 H, Calcium 9.7, Total Bilirubin 0.6, AST 57 H, ALT 45, Alkaline Phosphatase 237 H, Troponin I < 0.01, Total Protein 7.3, Albumin 3.8, Globulin 3.5 H, Albumin/Globulin Ratio 1.1 08/23/21 14:00: Lactate 1.0 08/23/21 14:00: NT-Pro-B Natriuret Pep 4900 H Result diagrams: 08/23/21 14:00 08/23/21 14:00 Orders (Tests/Meds): ED MEDICATIONS Discontinued Medications Generic Name Dose Route Start Last Admin Trade Name Freq PRN Reason Stop Dose Admin Albuterol Sulfate 2 puff 08/23/21 16:37 08/23/21 16:38 Albuterol-Hfa 90mcg/Puff Inhaler 8gm IH 09/22/21 16:36 2 puff Q4HP PRN Administration Shortness Of Breath Albuterol/Ipratropium 3
[2021-08-23 16:30] VITALS: BP 173/80; PULSE 100; RESP 24; TEMP 37; O2SAT 96
== END 2021-08-23 16:30 | disposition home or self-care (01) ==
PROVIDERS: Emergency Provider Student in an Organized Health Care Education/Training Program; PCP Internal Medicine Adolescent Medicine
DX: J44.1 Chronic obstructive pulmonary disease with (acute) exacerbation (principal); J18.9 Pneumonia, unspecified organism; R06.02 Shortness of breath; R06.00 Dyspnea, unspecified; R05.9 Cough, unspecified; R09.3 Abnormal sputum; F41.9 Anxiety disorder, unspecified; I50.9 Heart failure, unspecified; I25.10 Atherosclerotic heart disease of native coronary artery without angina pectoris; F32.9 Major depressive disorder, single episode, unspecified; K21.9 Gastro-esophageal reflux disease without esophagitis; E78.5 Hyperlipidemia, unspecified; I10 Essential (primary) hypertension; Z87.891 Personal history of nicotine dependence
CPT/HCPCS: 71046; 80053; 83605; 83880; 84484; 85025; 87040; 93005; 94640; 96374; 99284

== ENCOUNTER → 2022-04-19 09:02 | Outpatient (CLI) | payer MEDICARE, OTHER, SELFPAY ==
--- NOTE | 2022-04-19 09:08 | XR_ITS ---
FINAL REPORT TECHNIQUE: Bone densitometry calculations of the lumbar spine and left hip were obtained. CLINICAL HISTORY: osteoperosis COMPARISON: 09/09/2019 FINDINGS: DEXA BONE DENSITY AXIAL SKELETON Using L1-4, the bone mineral density of the spine is 0.843 g/cm2, corresponding to T-score of -1.9 with a Z-score of 0.3. Previously measured 0.9 g/cm2, corresponding to T-score of -1.0 with a Z-score of 0.9. Using the left hip, the bone mineral density of the femoral neck is 0.634 g/cm2, corresponding to a T-score of -2.5 with a Z-score of -1.0. Previously measured 0.531 g/cm2, corresponding to T-score of -2.9 with a Z-score of -1.2. NOTE: T-score: Standard deviation compared with peak bone mass of young adult mean. *Following the recommendations of the International Society of Bone densitometry, classification of hip BMD is based on the lower of two T-scores; total hip or femoral neck. IMPRESSION: Osteoporosis: Lowest T-score is at or below -2.5. This patient's T-score meets the World Health Organization criteria for osteoporosis of the left hip, improved. Diminished bone mineral density of the lumbar spine consistent with osteopenia, worse. Reviewed, Interpreted and Dictated by Rose Juarez MD Transcribed by Sherrie Florentino Authenticated and [facility]
== END ==
PROVIDERS: PCP Internal Medicine Adolescent Medicine; Visit Provider Internal Medicine Adolescent Medicine
DX: M81.0 Age-related osteoporosis without current pathological fracture (principal)
CPT/HCPCS: 77080

== ENCOUNTER → 2022-07-10 12:40 | Outpatient (CLI) | payer MEDICARE, OTHER, SELFPAY ==
--- NOTE | 2022-07-10 12:57 | CT_ITS ---
FINAL REPORT CLINICAL HISTORY: H/O TOBACCO USE SMOKER, 1/2 PPD X 50 YEARS COPD, EMPHYSEMA, CHF COMPARISON: CTA chest dated 06/02/2021, low-dose chest CT dated 11/13/2018 FINDINGS: Axial images were obtained from the lung apex to the mid abdomen by computed tomography. Low-dose protocol was utilized. CTDl vol(mGy): 2.90 DLP (mGy-cm): 96.38 FINDINGS: There is no axillary adenopathy. There is no hilar or mediastinal adenopathy. The heart size is normal. There is no pericardial or pleural effusion. Limited images of the upper abdomen are unremarkable. Lung window images demonstrate numerous fine nodular peripheral opacities in a multi lobar distribution most suggestive of bronchiolitis. Findings are most pronounced in the right mid lung and inferior left lower lobe. Mild bronchiectasis is noted. There is no dominant pulmonary lesion. Overall pattern appears stable since CTA chest in 2021 and mildly increased since low-dose chest CT in 2019. IMPRESSION: Extensive fine nodularity in a pattern suggestive of inflammatory process similar to the May 2021 exam. Lung RADS category 2S. Recommend 12 month follow-up low-dose chest CT. S modifier: Recommend clinical management of presumed bronchiolitis. Reviewed, Interpreted and Dictated by Prakash Messer MD Transcribed by Emily Montesinos Authenticated and [facility]
== END ==
PROVIDERS: PCP Internal Medicine Adolescent Medicine; Visit Provider Internal Medicine Adolescent Medicine
DX: Z87.891 Personal history of nicotine dependence (principal); Z12.2 Encounter for screening for malignant neoplasm of respiratory organs; J44.1 Chronic obstructive pulmonary disease with (acute) exacerbation; R63.4 Abnormal weight loss
CPT/HCPCS: 71271

== ENCOUNTER → 2022-07-12 10:40 | Outpatient (CLI) | payer MEDICARE, OTHER, SELFPAY ==
--- NOTE | 2022-07-12 10:56 | XR_ITS ---
FINAL REPORT CLINICAL HISTORY: COPD WITH CHRONIC BRONCHITIS COMPARISON: 08/23/2021 FINDINGS: There are underlying emphysematous changes. No acute pulmonary density is present. No significant pleural effusion. There is no pneumothorax. The heart is normal in size. The mediastinum is unremarkable. IMPRESSION: Emphysema without acute process. Reviewed, Interpreted and Dictated by Prakash Messer MD Transcribed by Yuliya Morton Authenticated and [facility]
[2022-07-12 11:33] LABS: Basophils # 0.1 K/mm3 (0-0.2); Basophils % 0.4 % (0.1-2.0); Eosinophils # 0.3 K/mm3 (0.0-0.4); Eosinophils % 1.7 % (0.1-12.0); Hematocrit 50.9 % (37.0-47.0); Hemoglobin 16.6 g/dL (12.2-16.2); Lymphocytes # 2.6 K/mm3 (0.7-4.5); Mean Corpuscular HGB Conc 32.6 g/dL (31.8-35.4); Mean Corpuscular Hemoglobin 29.1 pg (27.0-31.2); Mean Corpuscular Volume 89.4 fl (81-99); Mean Platelet Volume 7.7 fl (7.4-10.4); Monocytes # 0.7 K/mm3 (0.1-1.0); Monocytes % 4.1 % (1.7-9.3); Neutrophils # 12.6 K/mm3 (1.8-7.8); Neutrophils % 77.8 % (37.0-80.0); Platelet Count 423 K/mm3 (142-424); Red Cell Distribution Width 13.5 % (11.5-17.5); White Blood Count 16.1 K/mm3 (4.8-10.8)
[2022-07-12 11:41] LABS: MANUAL DIFFERENTIAL MANUAL DIFFERENTIAL (MANUAL DIFF)
[2022-07-12 11:58] LABS: Alanine Aminotransferase 27 U/L (12-78); Albumin/Globulin Ratio 1.5 (1.1-1.8); Alkaline Phosphatase 118 U/L (38-126); Anion Gap 13.5 mEq/L (5-15); Aspartate Amino Transferase 36 U/L (14-36); Bilirubin,Total 0.4 mg/dl (0.2-1.3); Blood Urea Nitrogen 19 mg/dl (7-17); Calcium 9.1 mg/dl (8.4-10.2); Carbon Dioxide 33 mmol/L (22.0-30.0); Chloride 91 mmol/L (98-107); Estimated Glomerular Filt Rate 83 ml/min (>60); GFR (African American) 100 ML/MIN (>60); Globulin 2.6 g/dL (1.3-3.2); Glucose 108 mg/dl (74-100); Potassium 4.5 mmoL/L (3.5-5.1); Sodium 133 mmol/L (136-145); Total Protein,Serum 6.6 g/dl (6.3-8.2)
[2022-07-12 12:52] LABS: Lymphocytes % 21 % (10-50); Monocytes % 2 % (2-9); Neutrophils % 77 % (42-76); Platelet Estimate Slight Increase; RBC Morphology Normal; Total Cells Counted 100
== END ==
PROVIDERS: PCP Internal Medicine Adolescent Medicine; Visit Provider Internal Medicine Adolescent Medicine
DX: J44.9 Chronic obstructive pulmonary disease, unspecified (principal); J96.11 Chronic respiratory failure with hypoxia
CPT/HCPCS: 36415; 71046; 80053; 85007; 85025; 87070; 87077; 87205

== ENCOUNTER 2022-08-09 10:04 | Observation (INO) | payer MEDICARE, OTHER, SELFPAY ==
[2022-08-09] VITALS (8 sets, daily range): BP systolic 135–174; BP diastolic 58–84; PULSE 62–81; RESP 16–19; TEMP 36.4–37.1; O2SAT 90–96; BMI 23.2; BMI 23.4
--- NOTE | 2022-08-09 10:17 | HMH.EDNVD ---
Discharge Plan Disposition Patient Disposition: Admitted Condition: Fair Chief Complaint: Nausea/Vomiting/Diarrhea Prescriptions Prescriptions: No Action gabapentin 300 MG capsule 600 mg PO HS Label Comments: TAKE 2 CAPSULES BY MOUTH AT BEDTIME pramipexole 0.5 MG tablet 0.5 mg PO HS bupropion HCl 300 MG tablet extended release 24 hr 300 mg PO DAILY ipratropium-albuterol 3 ML solution for nebulization 3 ml IH TID PRN (Reason: Shortness Of Breath) 30 Days Qty: 90 2RF ipratropium-albuterol 0.5 mg-3 mg(2.5 mg base)/3 mL solution for nebulization 3 ml INHALATION TIDP PRN (Reason: Breathing Problems) Label Comments: USE 3 ML VIA NEBULIZER THREE TIMES DAILY NEEDED FOR SHORTNESS OF BREATH escitalopram oxalate 10 mg tablet 10 mg PO DAILY Label Comments: TAKE 1 TABLET BY MOUTH ONCE DAILY irbesartan 75 MG tablet 75 mg PO DAILY Referrals Follow up/Referrals: Raleigh Valentine MD [Primary Care Provider] - See instructions Clinical Impressions Clinical Impression: Acute hyponatremia, Gastroenteritis Instructions Patient Instructions: DI for Diarrhea and Traveler's Diarrhea -- Adult, DI for Diarrhea and Traveler's Diarrhea -- Child, DI for Nausea -- Adult, DI for Nausea -- Child Discharge ED Provider: Jm Phipps Nausea/Vomiting/Diarrhea HPI General Chief complaint: Nausea/Vomiting/Diarrhea Stated complaint: vomiting, diarrhea Time Seen by Provider: 08/09/22 10:18 Mode of Arrival: Ambulatory Source of Information: Patient Limitations: No Limitations Description of Symptoms (Recalled from ER Triage Doc. by RN): 71 F presents with continued nausea, vomiting, diarrhea since Sunday. She has been taking medications called in by per PCP, but they're not helping. Patient denies fever, chills, dysuria, or abdominal pain. History of Present Illness HPI Narrative: The patient presents to the emergency department complaining of nausea vomiting and diarrhea for the last 4 days. She denies any abdominal pain or tenderness. She denies fevers. She has had gastric bypass surgery over 20 years ago and has had no complications from it. She is also had a hysterectomy and bladder sling in the past. She was seen by her primary care doctor (Dr. Cabello). She received a Phenergan injection yesterday which allowed her to sleep and feels somewhat better. She continues to have nausea and diarrhea. She denies any blood in the vomiting or diarrhea. She did take Pepto-Bismol. complaint: nausea, vomiting and diarrhea Onset (ago): day(s) (4) Related Data Home Medications Medication Instructions Recorded Confirmed gabapentin 300 mg capsule 600 mg PO HS Restless leg 03/16/19 08/09/22 pramipexole 0.5 mg tablet 0.5 mg PO HS Restless leg 03/17/19 08/09/22 irbesartan 75 mg tablet 75 mg PO DAILY Hypertension 07/18/19 08/09/22 bupropion HCl 300 mg 24 hr tablet, 300 mg PO DAILY Mood 06/02/21 08/09/22 extended release escitalopram oxalate 10 mg tablet 10 mg PO DAILY Mood 08/09/22 08/09/22 ipratropium 0.5 mg-albuterol 3 mg 3 ml inhalation TIDP PRN Breathing 08/09/22 08/09/22 (2.5 mg base)/3 mL nebulization Problems soln Previous Rx's Medication Instructions Recorded ipratropium 0.5 mg-albuterol 3 mg 3 ml IH TID PRN Shortness Of 06/03/21 (2.5 mg base)/3 mL nebulization Breath 30 days #90 ea soln Allergies Allergy/AdvReac Type Severity Reaction Status Date / Time No Known Allergies Allergy Verified 10/21/19 10:53 [facility] Disclaimer: The information contained in this section may have been updated after the patient was seen, as this information can be updated by other users. Medical History (Updated 08/09/22 @ 12:19 by Jm Phipps MD) Abnormal chest x-ray Abnormal CT lung screening Dyspnea Hoarseness Social History Smoking Status: Current every day smoker tobacco type: cigarettes packs per day: 1 second hand exposure: Yes alcohol intake:
[2022-08-09 10:25] LABS: Microscopic, Urine URINE MICROSCOPIC (MICROSCOPIC)
[2022-08-09 10:30] LABS: Appearance,Urine CLEAR (Clear); Basophils % 0.3 % (0.1-2.0); Bilirubin,Urine Negative (Negative); Blood, Urine Negative (Negative); Color,Urine YELLOW (Yellow); Eosinophils # 0.3 K/mm3 (0.0-0.4); Eosinophils % 1.8 % (0.1-12.0); Glucose,Urine (UA) Negative (Negative); Hematocrit 52.1 % (37.0-47.0); Hemoglobin 17.3 g/dL (12.2-16.2); Ketones,Urine Negative (Negative); Leukocyte Esterase,Urine 1+ (Negative); Lymphocytes # 2.4 K/mm3 (0.7-4.5); Lymphocytes % 17.5 % (10-50); Mean Corpuscular HGB Conc 33.2 g/dL (31.8-35.4); Mean Corpuscular Hemoglobin 28.1 pg (27.0-31.2); Mean Corpuscular Volume 84.6 fl (81-99); Mean Platelet Volume 7.5 fl (7.4-10.4); Monocytes # 0.9 K/mm3 (0.1-1.0); Monocytes % 6.2 % (1.7-9.3); Neutrophils # 10.3 K/mm3 (1.8-7.8); Neutrophils % 74.3 % (37.0-80.0); Nitrate,Urine Negative (Negative); Platelet Count 325 K/mm3 (142-424); Protein,Urine Negative (Negative); Red Blood Count 6.16 M/mm3 (4.20-5.40); Red Cell Distribution Width 12.8 % (11.5-17.5); Specific Gravity, Urine <= 1.005 (1.005-1.030); Urobilinogen,Urine 0.2 EU/dl (0.2); White Blood Count 13.9 K/mm3 (4.8-10.8)
[2022-08-09 10:35] LABS: Chloride 78 mmol/L (98-107); Sodium 120 mmol/L (136-145)
[2022-08-09 10:38] LABS: Alanine Aminotransferase 25 U/L (12-78); Albumin Level 4.5 g/dl (3.5-5.0); Albumin/Globulin Ratio 1.4 (1.1-1.8); Alkaline Phosphatase 133 U/L (38-126); Aspartate Amino Transferase 43 U/L (14-36); Bilirubin,Total 0.7 mg/dl (0.2-1.3); Blood Urea Nitrogen 13 mg/dl (7-17); Calcium 9.6 mg/dl (8.4-10.2); Carbon Dioxide 34 mmol/L (22.0-30.0); Creatinine Clearance Estimated 43 mL/min (50-200); Estimated Glomerular Filt Rate 99 ml/min (>60); GFR (African American) 120 ML/MIN (>60); Globulin 3.3 g/dL (1.3-3.2); Glucose 124 mg/dl (74-100); Lipase 266 U/L (23-300); Total Protein,Serum 7.8 g/dl (6.3-8.2)
[2022-08-09 10:55] LABS: Bacteria,Urine Trace /lpf
--- NOTE | 2022-08-09 11:52 | PC.NURSE ---
Rounded on patient. She is resting, NAD, no complaints or needs. PO challenged per attending
--- NOTE | 2022-08-09 12:08 | PC.NURSE ---
Patient tolerating PO. Still feels the same. Attending notified. Dr. Valentine paged for attending to speak to.
--- NOTE | 2022-08-09 12:16 | PC.NURSE ---
CASE MANAGEMENT NOTIFIED OF ADMISSION
--- NOTE | 2022-08-09 12:17 | XR_ITS ---
FINAL REPORT CLINICAL HISTORY: Chronic cough COMPARISON: 07/12/2022 FINDINGS: There is no evidence of effusion or other pleural disease. Emphysematous changes are noted. There is calcified granulomatous disease. The mediastinum has a normal appearance. The cardiac silhouette is unremarkable. IMPRESSION: No acute pulmonary abnormality. Reviewed, Interpreted and Dictated by Prakash Messer MD Transcribed by Emily Montesinos Authenticated and [facility]
--- NOTE | 2022-08-09 12:22 | PC.NURSE ---
patient given pillow and swabbed for COVID for admission
--- NOTE | 2022-08-09 12:27 | PC.NURSE ---
PT TO XR
[2022-08-09 12:49] LABS: Coronavirus 19, PCR Not Detected (NotDetected); Influenza A, PCR Not Detected (NotDetected); Influenza B, PCR Not Detected (NotDetected)
--- NOTE | 2022-08-09 12:58 | PC.NURSE ---
REPORT GIVEN TO LAWRENCE MAK
--- NOTE | 2022-08-09 13:32 | HMH.PHAINT1 ---
Pharmacy Intervention Comments: MEDICATION RECONCILIATION COMPLETED ON PATIENT USING EXTERNAL FILL HISTORY FROM PHARMACY. -GER[place]IA HAWKINS, CIERAD
--- NOTE | 2022-08-09 13:36 | PC.NURSE ---
arrived to [facility] by w/c from ED
--- NOTE | 2022-08-09 17:34 | EXP.HP ---
History of Present Illness *Admission Date: 08/09/22 *Reason for visit:: Weakness, fatigue, nausea, diarrhea *History of present illness: 71-year-old with history of COPD, chronic recurrent pneumonia and history of PE in the remote past, now out of antithrombotic therapy arranged. She came to see me in my office yesterday, was weak, had vomiting and nausea, we administered a Zofran injection and prescribe Zofran at home. She has not gotten much better and I advised her to go to the ER today to make sure she did not need IV fluids and to have labs done. In the ER she was found to be profoundly hyponatremic with a sodium of 120. Also found to have leukocytes in her urine and to be clinically dehydrated. Admitted to the hospital for saline infusions and further diagnostic testing. [facility] Disclaimer: The information contained in this section may have been updated after the patient was seen, as this information can be updated by other users. Medical History (Updated 08/09/22 @ 15:08 by Bing Rueda RN) Abnormal chest x-ray Abnormal CT lung screening Anxiety Depression Dyspnea GERD (gastroesophageal reflux disease) Hoarseness Pulmonary embolism Surgical History (Updated 08/09/22 @ 15:08 by Bing Rueda RN) Gastric bypass status for obesity H/O gastric bypass Family History (Updated 08/09/22 @ 15:10 by Bing Rueda RN) Kidney failure Family history of COPD (chronic obstructive pulmonary disease) Stroke Social History (Updated 08/09/22 @ 15:10 by Bing Rueda RN) Smoking Status: Current every day smoker tobacco type: cigarettes packs per day: 1 second hand exposure: Yes alcohol intake: never substance use type: denies use current occupational status: retired Travel in the last 8 weeks: None household members: spouse housing: house current occupational exposures/hazards: No caffeine: Yes Meds Home Medications and Allergies Home Medications Medication Instructions Recorded Confirmed Type gabapentin 300 mg capsule 600 mg PO HS Restless leg 03/16/19 08/09/22 History pramipexole 0.5 mg tablet 0.5 mg PO HS Restless leg 03/17/19 08/09/22 History escitalopram oxalate 10 mg tablet 10 mg PO DAILY Mood 08/09/22 08/09/22 History famotidine 20 mg tablet 20 mg PO BID Acid reflux 08/09/22 08/09/22 History ipratropium 0.5 mg-albuterol 3 mg 3 ml IH Q4HP PRN Shortness Of 08/09/22 08/09/22 History (2.5 mg base)/3 mL nebulization Breath soln mirtazapine 15 mg tablet 15 mg PO HS MOOD 08/09/22 08/09/22 History ondansetron HCl 4 mg tablet 4 mg PO Q8HP PRN Nausea And 08/09/22 08/09/22 History Vomiting promethazine 25 mg tablet 25 mg PO Q6HP PRN Nausea And 08/09/22 08/09/22 History Vomiting trazodone 100 mg tablet 100 mg PO HS SLEEP 08/09/22 08/09/22 History New Prescriptions to Start Prescriptions: Allergies Allergy/AdvReac Type Severity Reaction Status Date / Time No Known Allergies Allergy Verified 10/21/19 10:53 Exam Data for Last 24 hours Vital signs and Labs for Last 24 Hours: Temp Pulse Resp BP Pulse Ox 97.7 F 67 16 135/70 94 L 08/09/22 14:55 08/09/22 14:55 08/09/22 14:55 08/09/22 14:55 08/09/22 14:55 Laboratory Results - last 24 hr 08/09/22 10:15: Urine Color Yellow, Urine Appearance Clear, Urine pH 6.0, Ur Specific [place] <= 1.005, Urine Protein Negative, Urine Glucose (UA) Negative, Urine Ketones Negative, Urine Blood Negative, Urine Nitrate Negative, Urine Bilirubin Negative, Urine Urobilinogen 0.2, Ur Leukocyte Esterase 1+ A, Urine RBC None, Urine WBC 10-20, Ur Squamous Epith Cells 10-20, Urine Bacteria Trace 08/09/22 10:15: WBC 13.9 H, RBC 6.16 H, Hgb 17.3 H, Hct 52.1 H, MCV 84.6, MCH 28.1, MCHC 33.2, RDW 12.8, Plt Count 325, MPV 7.5, Neut % (Auto) 74.3, Lymph % (Auto) 17.5, [place] % (Auto) 6.2, Eos % (Auto) 1.8, Baso % (Auto) 0.3, Neut # (Auto) 10.3 H, Lymph # (Auto) 2.4, [place] # (Auto) 0.9, Eos # (Auto) 0.3, Baso # (Auto) 0.0 08/09/22 10:15: S
[2022-08-09 18:31] LABS: Anion Gap 11.6 mEq/L (5-15); Blood Urea Nitrogen 8 mg/dl (7-17); Calcium 8.5 mg/dl (8.4-10.2); Carbon Dioxide 28 mmol/L (22.0-30.0); Chloride 95 mmol/L (98-107); Creatinine Clearance Estimated 44 mL/min (50-200); Estimated Glomerular Filt Rate 71 ml/min (>60); GFR (African American) 86 ML/MIN (>60); Glucose 126 mg/dl (74-100); Potassium 3.6 mmoL/L (3.5-5.1); Sodium 131 mmol/L (136-145)
--- NOTE | 2022-08-09 20:01 | PC.NURSE ---
Talked to Night Watch John about patient home medication pramipexole 0.5mg that she takes at home. Night watch stated he would put in a one time dose and to verify dosing with another nurse.
[2022-08-10 04:00] VITALS: BP 146/80; PULSE 102; RESP 18; TEMP 37; O2SAT 90; BMI 23.4
--- NOTE | 2022-08-10 05:10 | PC.NURSE ---
Patient has rested well tonight. No complaints
[2022-08-10 06:05] LABS: Basophils # 0.1 K/mm3 (0-0.2); Basophils % 0.6 % (0.1-2.0); Eosinophils # 0.2 K/mm3 (0.0-0.4); Mean Platelet Volume 7.7 fl (7.4-10.4); Monocytes # 0.9 K/mm3 (0.1-1.0)
[2022-08-10 06:17] LABS: Chloride 98 mmol/L (98-107); Potassium 3.8 mmoL/L (3.5-5.1); Sodium 131 mmol/L (136-145)
[2022-08-10 06:20] LABS: Anion Gap 8.8 mEq/L (5-15); Blood Urea Nitrogen 10 mg/dl (7-17); Calcium 8.1 mg/dl (8.4-10.2); Carbon Dioxide 28 mmol/L (22.0-30.0); Creatinine Clearance Estimated 44 mL/min (50-200); Estimated Glomerular Filt Rate 122 ml/min (>60); GFR (African American) 148 ML/MIN (>60); Glucose 91 mg/dl (74-100)
[2022-08-10 06:23] LABS: Eosinophils % 1.7 % (0.1-12.0); Hematocrit 45.1 % (37.0-47.0); Lymphocytes # 2.3 K/mm3 (0.7-4.5); Lymphocytes % 21.8 % (10-50); Mean Corpuscular HGB Conc 32.2 g/dL (31.8-35.4); Mean Corpuscular Hemoglobin 28.1 pg (27.0-31.2); Mean Corpuscular Volume 87.4 fl (81-99); Monocytes % 8.2 % (1.7-9.3); Neutrophils # 7.2 K/mm3 (1.8-7.8); Neutrophils % 67.7 % (37.0-80.0); Platelet Count 277 K/mm3 (142-424); Red Blood Count 5.16 M/mm3 (4.20-5.40); Red Cell Distribution Width 13.3 % (11.5-17.5); White Blood Count 10.7 K/mm3 (4.8-10.8)
[2022-08-10 06:27] LABS: Hemoglobin 14.5 g/dL (12.2-16.2)
--- NOTE | 2022-08-10 07:27 | EXP.DC.SUM ---
General Admission date:: 08/09/22 Discharge date: 08/10/22 HPI HPI HPI: 71-year-old with history of COPD, chronic recurrent pneumonia and history of PE in the remote past, now out of antithrombotic therapy arranged. She came to see me in my office yesterday, was weak, had vomiting and nausea, we administered a Zofran injection and prescribe Zofran at home. She has not gotten much better and I advised her to go to the ER today to make sure she did not need IV fluids and to have labs done. In the ER she was found to be profoundly hyponatremic with a sodium of 120. Also found to have leukocytes in her urine and to be clinically dehydrated. Admitted to the hospital for saline infusions and further diagnostic testing. Hospital Course Hospital Course Hospital Course: Patient was admitted, rehydrated with normal saline and sodium corrected appropriately. This morning 131, felt much better, ate breakfast and supper 100%. Did well in regards to walking around and taking care of herself after sodium when corrected. Found to have leukocytes on urine. Given 1 dose of ceftriaxone. Urine culture results pending at the time of discharge. Plan will be to discharge home, we will give cefdinir for possible UTI and await culture results as an outpatient. We will hold Lexapro given its possibility of causing hyponatremia. I will see her in my office in the next 4 to 5 days and will decide on whether or not she needs further antidepressant therapy and whether or not antibiotics will be continued for UTI depending on culture results. Exam Data for Last 24 hours Vital signs and Labs for Last 24 Hours: Temp Pulse Resp BP Pulse Ox 98.6 F 102 H 18 146/80 H 90 L 08/10/22 04:00 08/10/22 04:00 08/10/22 04:00 08/10/22 04:00 08/10/22 04:00 Laboratory Results - last 24 hr 08/09/22 10:15: Urine Color Yellow, Urine Appearance Clear, Urine pH 6.0, Ur Specific [place] <= 1.005, Urine Protein Negative, Urine Glucose (UA) Negative, Urine Ketones Negative, Urine Blood Negative, Urine Nitrate Negative, Urine Bilirubin Negative, Urine Urobilinogen 0.2, Ur Leukocyte Esterase 1+ A, Urine RBC None, Urine WBC 10-20, Ur Squamous Epith Cells 10-20, Urine Bacteria Trace 08/09/22 10:15: WBC 13.9 H, RBC 6.16 H, Hgb 17.3 H, Hct 52.1 H, MCV 84.6, MCH 28.1, MCHC 33.2, RDW 12.8, Plt Count 325, MPV 7.5, Neut % (Auto) 74.3, Lymph % (Auto) 17.5, [place] % (Auto) 6.2, Eos % (Auto) 1.8, Baso % (Auto) 0.3, Neut # (Auto) 10.3 H, Lymph # (Auto) 2.4, [place] # (Auto) 0.9, Eos # (Auto) 0.3, Baso # (Auto) 0.0 08/09/22 10:15: Sodium 120 L, Potassium 4.0, Chloride 78 L, Carbon Dioxide 34 H, Anion Gap 12.0, BUN 13, Creatinine 0.60, Estimated Creat Clear 43, Estimated GFR 99, Est GFR ( Amer) 120, Glucose 124 H, Calcium 9.6, Total Bilirubin 0.7, AST 43 H, ALT 25, Alkaline Phosphatase 133 H, Total Protein 7.8, Albumin 4.5, Globulin 3.3 H, Albumin/Globulin Ratio 1.4, Lipase 266 08/09/22 12:15: SARS-CoV-2 (PCR) Not detected, Influenza A Untype (PCR) Not detected, Influenza Type B (PCR) Not detected 08/09/22 18:00: Sodium 131 L, Potassium 3.6, Chloride 95 L, Carbon Dioxide 28, Anion Gap 11.6, BUN 8 D, Creatinine 0.80 D, Estimated Creat Clear 44, Estimated GFR 71, Est GFR ( Amer) 86 D, Glucose 126 H, Calcium 8.5 08/10/22 05:23: WBC 10.7, RBC 5.16, Hgb 14.5 D, Hct 45.1, MCV 87.4, MCH 28.1, MCHC 32.2, RDW 13.3, Plt Count 277, MPV 7.7, Neut % (Auto) 67.7, Lymph % (Auto) 21.8, [place] % (Auto) 8.2, Eos % (Auto) 1.7, Baso % (Auto) 0.6, Neut # (Auto) 7.2, Lymph # (Auto) 2.3, [place] # (Auto) 0.9, Eos # (Auto) 0.2, Baso # (Auto) 0.1 08/10/22 05:23: Sodium 131 L, Potassium 3.8, Chloride 98, Carbon Dioxide 28, Anion Gap 8.8, BUN 10, Creatinine 0.50 L D, Estimated Creat Clear 44, Estimated GFR 122, Est GFR ( Amer) 148 D, Glucose 91 D, Calcium 8.1 L I & O for Last 24 hours: Intake & Output 08/07/22 08/08/22 08/09/22 08/10/22 11:59 11:59 11:59 11:59 Intake Total 1180 / 1180 Output Total
[2022-08-10 08:00] VITALS: BP 133/66; PULSE 87; RESP 18; TEMP 36.5; O2SAT 93
--- NOTE | 2022-08-11 14:31 | CARE MANAGER ---
Attempted post-discharge phone interview, mailbox is full thus message could not be left at this time.
== END 2022-08-10 08:58 | disposition home or self-care (01) ==
LOC: ER 12:19 → 2ND 12:44
PROVIDERS: Admitting Provider Internal Medicine Adolescent Medicine; Emergency Provider Emergency Medicine; PCP Internal Medicine Adolescent Medicine; Visit Provider Internal Medicine Adolescent Medicine
DX: E87.1 Hypo-osmolality and hyponatremia (principal); F17.210 Nicotine dependence, cigarettes, uncomplicated; Z79.899 Other long term (current) drug therapy; K52.9 Noninfective gastroenteritis and colitis, unspecified; J44.9 Chronic obstructive pulmonary disease, unspecified; N39.0 Urinary tract infection, site not specified
CPT/HCPCS: G0378; 36415; 71046; 80048; 80053; 81001; 83690; 85025; 87086; 87636; 99285; C9803; J0696; J2405; U0003; U0005

== ENCOUNTER 2023-09-10 14:39 | Observation (INO) | payer MEDICARE, OTHER, SELFPAY ==
[2023-09-10] VITALS (14 sets, daily range): BP systolic 110–179; BP diastolic 57–145; PULSE 70–118; RESP 18–22; TEMP 36.4–36.9; O2SAT 91–97; BMI 25.6
--- NOTE | 2023-09-10 14:52 | XR_ITS ---
FINAL REPORT CLINICAL HISTORY: soa, CHF vs pneumonia COMPARISON: 08/09/2022 FINDINGS: Two views of the chest were obtained. The heart size is normal. There is mild pulmonary vascular congestion. The mediastinum is normal. There are mild bibasilar opacities, favor atelectasis. There is no pneumothorax. The bony thorax is intact. Postoperative changes noted in the left upper quadrant of the abdomen. IMPRESSION: Mild pulmonary vascular congestion. Mild bibasilar opacities, favor atelectasis. Reviewed, Interpreted and Dictated by Gary Walter III, MD Transcribed by Paloma Taylor Authenticated and [facility]
--- NOTE | 2023-09-10 14:55 | [facility].EDCP ---
Discharge Plan Disposition Patient Disposition: Admitted Chief Complaint: Shortness of Breath/Dyspnea Prescriptions Prescriptions: No Action gabapentin 300 MG capsule 600 mg PO HS Patient Comments: TAKE 2 CAPSULES BY MOUTH AT BEDTIME pramipexole 0.5 MG tablet 0.5 mg PO HS ondansetron HCl 4 mg tablet 4 mg PO Q8HP PRN (Reason: Nausea And Vomiting) Patient Comments: TAKE 1 TABLET BY MOUTH EVERY 8 HOURS NEEDED FOR 7 DAYS famotidine 20 mg tablet 20 mg PO BID Patient Comments: TAKE 1 TABLET BY MOUTH TWICE DAILY trazodone 100 mg tablet 100 mg PO HS Patient Comments: TAKE 1 TABLET BY MOUTH AT BEDTIME promethazine 25 mg tablet 25 mg PO Q6HP PRN (Reason: Nausea And Vomiting) Patient Comments: TAKE 1 TABLET BY MOUTH EVERY 6 HOURS NEEDED FOR 5 DAYS mirtazapine 15 mg tablet 15 mg PO HS Patient Comments: TAKE 1 TABLET BY MOUTH ONCE DAILY AT BEDTIME ipratropium-albuterol 3 ML solution for nebulization 3 ml IH Q4HP PRN (Reason: Shortness Of Breath) cefdinir 300 mg capsule 300 mg PO BID Qty: 14 0RF Referrals Follow up/Referrals: Raleigh Valentine MD [Primary Care Provider] - See instructions Clinical Impressions Clinical Impression: Shortness of breath, Cough, Acute exacerbation of chronic obstructive pulmonary disease, Pneumonia Discharge ED Provider: Yousuf Hoff HPI <Kwaku Rueda MD - Last Filed: 09/10/23 15:04> General Chief Complaint: Shortness of Breath/Dyspnea Stated Complaint: evaluation-sent by Dr. Valentine Time Seen by Provider: 09/10/23 14:47 Mode of Arrival: Wheelchair Source of Information: Patient Limitations: No Limitations Description of Symptoms (Recalled from ER Triage Doc. by RN): Sent from Dr. Valentine's office for abnormal lung sounds and low oxygen levels. Patient states she can't catch her breath and that her feet are swollen. History of Present Illness HPI narrative: Please note that above description of symptoms, in this electronic medical record under categorization of recalled from ER triage doctor by RN are reflective of an initial nursing assessment, however, is not reflective of my full history and physical exam that was personally taken and clarified. Consequentially, this preceding description of symptoms, which may include the patient's categorized chief complaint in the EMR, do not reflect my personal clinical impression, and the ultimate description of history of present illness and patient stated complaints should be deferred to this section of the note. Unless stated otherwise or congruent with this section of the note, additional signs, symptoms, or incongruence should be interpreted as inaccurate with my clinical impression. Related Data Home Medications Medication Instructions Recorded Confirmed gabapentin 300 mg capsule 600 mg PO HS Restless leg 03/16/19 08/09/22 pramipexole 0.5 mg tablet 0.5 mg PO HS Restless leg 03/17/19 08/09/22 famotidine 20 mg tablet 20 mg PO BID Acid reflux 08/09/22 08/09/22 ipratropium 0.5 mg-albuterol 3 mg 3 ml IH Q4HP PRN Shortness Of 08/09/22 08/09/22 (2.5 mg base)/3 mL nebulization Breath soln mirtazapine 15 mg tablet 15 mg PO HS MOOD 08/09/22 08/09/22 ondansetron HCl 4 mg tablet 4 mg PO Q8HP PRN Nausea And 08/09/22 08/09/22 Vomiting promethazine 25 mg tablet 25 mg PO Q6HP PRN Nausea And 08/09/22 08/09/22 Vomiting trazodone 100 mg tablet 100 mg PO HS SLEEP 08/09/22 08/09/22 Previous Rx's Medication Instructions Recorded cefdinir 300 mg capsule 300 mg PO BID #14 caps 08/10/22 Allergies Allergy/AdvReac Type Severity Reaction Status Date / Time No Known Allergies Allergy Verified 10/21/19 10:53 [facility] <Kwaku Rueda MD - Last Filed: 09/10/23 15:04> [facility] Disclaimer: The information contained in this section may have been updated after the patient was seen, as this information can be updated by other users. Medical History (Updated 09/10/23 @ 16:47 by Yousuf Hoff MD) Pulmonary embolism GERD (gastroesophageal reflux disease) Depression Anxiety Hoarseness Abnormal CT lung screening Abnormal chest x-ray Dyspnea Surgical History (Updated 08/09/22 @ 15:08 by Bing Rueda RN) H/O gastric bypass Gastric bypass status for obesity Family History (Updated 08/09/22 @ 15:10 by Bing Rueda RN) Other Family history of COPD (chronic obstructive pulmonary disease) Kidney failure Stroke Social History (Updated 08/09/22 @ 15:10 by Bing Rueda RN) Smoking Status: Unknown if ever smoked second hand exposure: Yes alcohol intake: never substance use type: denies use current occupational status: retired Travel in the last 8 weeks: None household members: spouse housing: house current occupational exposures/hazards: No caffeine: Yes <Kwaku Rueda MD - Last Filed: 09/10/23 15:04> ROS Obtained: Yes All systems reviewed & no additional complaints except as documented Physical Exam <Kwaku Rueda MD - Last Filed: 09/10/23 15:04> General General appearance: alert and in distress (mild resp) Neck Neck exam: Present trachea midline Chest Chest inspection: Present normal inspection and symmetric chest wall rise Respiratory Respiratory exam: Present respiratory distress (Tachypnea), wheezes and prolonged expiratory phase; Absent normal lung sounds bilaterally, stridor or accessory muscle use Cardiovascular Cardiovascular exam: Present regular rate and normal rhythm Extremities Exam Extremities exam: Absent edema Neurological Exam Neurological exam: Present alert, oriented X3 and CN II-XII intact Skin Skin exam: Present warm and dry; Absent cyanosis, diaphoresis or pallor HEART Score <Kwaku Reuda MD - Last Filed: 09/10/23 15:04> HEART Score HEART Score assessment performed?: No <Yousuf Hoff MD - Last Filed: 09/10/23 16:47> HEART Score HEART Score assessment performed?: Yes History (anamnesis): Slightly suspicious ECG: Normal Age: >65 years Risk factors: 1-2 risk factors Troponin: </= normal limit HEART Score: 3 Critical Care <Kwaku Rueda MD - Last Filed: 09/10/23 15:04> Critical Care Time Critical Care Time: No Medical Decision Making <Kwaku Rueda MD - Last Filed: 09/10/23 15:04> Medical Records Medical records reviewed: Yes I reviewed the patient's medical records. Nima Inquiry Pt receiving controlled substance: No Nima was queried for this patient: No Vital Signs Vital Signs: 09/10/23 14:41 09/10/23 15:00 09/10/23 15:30 Temperature 98.0 F Temperature Source Oral Pulse Rate 75 70 Pulse Rate [Radial] 76 Respiratory Rate 20 Blood Pressure 150/79 H 151/71 H Blood Pressure [Right Arm] 179/91 H Blood Pressure Mean [Right Arm] 120 Blood Pressure Source [Right Arm] Automatic Cuff Blood Pressure Position [Right Arm] Sitting 02 Sat by Pulse Oximetry 93 L 97 97 Oxygen Delivery Method Room Air Room Air 09/10/23 16:00 Temperature Temperature Source Pulse Rate 70 Pulse Rate [Radial] Respiratory Rate Blood Pressure 142/72 H Blood Pressure [Right Arm] Blood Pressure Mean [Right Arm] Blood Pressure Source [Right Arm] Blood Pressure Position [Right Arm] 02 Sat by Pulse Oximetry 91 L Oxygen Delivery Method Room Air Lab Data Labs: Lab Results 09/10/23 14:47: WBC 10.1, RBC 5.55 H, Hgb 16.4 H, Hct 50.5 H, MCV 90.9, MCH 29.5, MCHC 32.4, RDW 14.0, Plt Count 341, MPV 7.8, Neut % (Auto) 62.5, Lymph % (Auto) 28.7, Moore % (Auto) 4.5, Eos % (Auto) 3.3, Baso % (Auto) 1.1, Neut # (Auto) 6.3, Lymph # (Auto) 2.9, Moore # (Auto) 0.5, Eos # (Auto) 0.3, Baso # (Auto) 0.1, Sodium 131 L, Potassium 4.4, Chloride 99, Carbon Dioxide 32 H, Anion Gap 4.4 L, BUN 21 H, Creatinine 0.70, Estimated Creat Clear 47, Estimated GFR 82, Est GFR ( Amer) 100, Glucose 102 H, Calcium 9.3, Total Bilirubin 0.7, AST 30, ALT 17, Alkaline Phosphatase 94, Troponin I < 0.01, NT-Pro-B Natriuret Pep 627 H, Total Protein 7.3, Albumin 4.2, Globulin 3.1, Albumin/Globulin Ratio 1.4 09/10/23 14:51: VBG pH 7.37, VBG pCO2 47.6, VBG pO2 46.8 H, VBG HCO3 27.1, VBG Total CO2 28.6 H, VBG O2 Saturation 86.8 H, VBG Base Excess 1.9, VBG Lactic Acid 1.8 09/10/23 14:47 09/10/23 14:47 Response Orders (Tests/Meds): ED MEDICATIONS Generic Name Dose Route Start Last Admin Trade Name Fremanolo PRN Reason Stop Dose Admin Ceftriaxone Sodium 1 gm/ 50 mls @ 100 mls/hr 09/10/23 16:42 Sodium Chloride IV 09/10/23 17:11 ONCE ONE Discontinued Medications Generic Name Dose Route Start Last Admin Trade Name Deidra PRN Reason Stop Dose Admin Albuterol Sulfate 20 mg 09/10/23 16:39 Albuterol 0.083% 2.5 Mg/3 Ml [facility] 09/10/23 16:40 ONCE ONE Albuterol/Ipratropium 9 ml 09/10/23 14:52 09/10/23 15:01 Ipratropium/Albuterol 3 Ml [facility] 09/10/23 14:53 9 ml ONCE ONE Administration Azithromycin 500 mg/ Sodium 250 mls @ 250 mls/hr 09/10/23 16:42 Chloride IV 09/10/23 16:43 ONCE ONE Methylprednisolone Sodium Succinate 125 mg 09/10/23 14:52 09/10/23 15:01 Methylprednisolone Sod Succ 125mg Vial IV 09/10/23 14:53 125 mg ONCE ONE Administration ORDERS Category Date Time Status CXR 2 view (NOT portable) [XR chest 2V] Stat Exams 09/10/23 14:52 Taken CBC w/Auto Diff [Complete Blood Count Auto Diff] Stat Lab 09/10/23 14:47 Completed CMP [Comprehensive Metabolic Panel] Stat Lab 09/10/23 14:47 Completed Full Resp Panel w/COVID ([facility]) Routine Lab 09/10/23 16:41 Ordered NT Pro Brain Natriuretic Pep. Stat Lab 09/10/23 14:47 Completed Trop I [Troponin I] Stat Lab 09/10/23 14:47 Completed Troponin I Q3H Lab 09/10/23 16:00 Received Troponin I Q3H Lab 09/10/23 21:00 Ordered VBG [Venous Blood Gas] Stat RT 09/10/23 14:51 Completed MDM Narrative Medical Decision Narrative: This is a 72-year-old female history of hypertension, hyperlipidemia, COPD on 3 L nasal cannula at night, CHF presenting with shortness of breath. Patient states she has been feeling short of breath with a cough since last week. She saw her family doctor 5 days prior to this visit, he prescribed azithromycin and gave her steroid shot. She states she felt better for about 2 days, now feeling worse. Cough is nonproductive, but feels like it needs to be. States that she has felt febrile, no objective temperatures of the measured. No obvious weight gain, night sweats, chest pain, nausea, vomiting, diarrhea, or any other concerns. History was obtained via conversation with patient. On arrival, patient hemodynamically stable, alert, oriented x4, appropriate, GCS 15, moving all extremities spontaneously, pupils equal and reactive to light. Full physical exam performed and significant for uncomfortable appearing woman who is in mild respiratory distress. Diffuse bilateral expiratory wheezes heard throughout expiration, patient also has inspiratory crackles heard left lower lung pelayo anteriorly. No lower extremity edema, no cyanosis, patient 93% on room air, appropriate for COPD. Patient was given 3 DuoNebs, 5 for symptomatic management and correction of underlying abnormalities. Patient placed on continuous cardiac monitoring and continuous pulse ox with initial blood pressure 179/91, heart rate 76, saturation 93% on room air. Heart/[id number]/Wells/PERC/Age adjusted/YEARS. Prior to EKG, chest x-ray, hematologic workup, and disposition, care handed off to oncoming physician. Teacher Private disclaimer Much of this encounter note is an electronic chisel worker spoken language to printed text. Electronic chisel worker of the spoken language may permit errors. Although I have reviewed the note, some errors may still exist. <Yousuf Hoff MD - Last Filed: 09/10/23 16:47> Vital Signs Vital Signs: 09/10/23 14:41 09/10/23 15:00 09/10/23 15:30 Temperature 98.0 F Temperature Source Oral Pulse Rate 75 70 Pulse Rate [Radial] 76 Respiratory Rate 20 Blood Pressure 150/79 H 151/71 H Blood Pressure [Right Arm] 179/91 H Blood Pressure Mean [Right Arm] 120 Blood Pressure Source [Right Arm] Automatic Cuff Blood Pressure Position [Right Arm] Sitting 02 Sat by Pulse Oximetry 93 L 97 97 Oxygen Delivery Method Room Air Room Air 09/10/23 16:00 Temperature Temperature Source Pulse Rate 70 Pulse Rate [Radial] Respiratory Rate Blood Pressure 142/72 H Blood Pressure [Right Arm] Blood Pressure Mean [Right Arm] Blood Pressure Source [Right Arm] Blood Pressure Position [Right Arm] 02 Sat by Pulse Oximetry 91 L Oxygen Delivery Method Room Air Lab Data Labs: Lab Results 09/10/23 14:47: WBC 10.1, RBC 5.55 H, Hgb 16.4 H, Hct 50.5 H, MCV 90.9, MCH 29.5, MCHC 32.4, RDW 14.0, Plt Count 341, MPV 7.8, Neut % (Auto) 62.5, Lymph % (Auto) 28.7, Moore % (Auto) 4.5, Eos % (Auto) 3.3, Baso % (Auto) 1.1, Neut # (Auto) 6.3, Lymph # (Auto) 2.9, Moore # (Auto) 0.5, Eos # (Auto) 0.3, Baso # (Auto) 0.1, Sodium 131 L, Potassium 4.4, Chloride 99, Carbon Dioxide 32 H, Anion Gap 4.4 L, BUN 21 H, Creatinine 0.70, Estimated Creat Clear 47, Estimated GFR 82, Est GFR ( Amer) 100, Glucose 102 H, Calcium 9.3, Total Bilirubin 0.7, AST 30, ALT 17, Alkaline Phosphatase 94, Troponin I < 0.01, NT-Pro-B Natriuret Pep 627 H, Total Protein 7.3, Albumin 4.2, Globulin 3.1, Albumin/Globulin Ratio 1.4 09/10/23 14:51: VBG pH 7.37, VBG pCO2 47.6, VBG pO2 46.8 H, VBG HCO3 27.1, VBG Total CO2 28.6 H, VBG O2 Saturation 86.8 H, VBG Base Excess 1.9, VBG Lactic Acid 1.8 Response Orders (Tests/Meds): ED MEDICATIONS Generic Name Dose Route Start Last Admin Trade Name Freq PRN Reason Stop Dose Admin Ceftriaxone Sodium 1 gm/ 50 mls @ 100 mls/hr 09/10/23 16:42 Sodium Chloride IV 09/10/23 17:11 ONCE ONE Discontinued Medications Generic Name Dose Route Start Last Admin Trade Name Freq PRN Reason Stop Dose Admin Albuterol Sulfate 20 mg 09/10/23 16:39 Albuterol 0.083% 2.5 Mg/3 Ml [facility] 09/10/23 16:40 ONCE ONE Albuterol/Ipratropium 9 ml 09/10/23 14:52 09/10/23 15:01 Ipratropium/Albuterol 3 Ml [facility] 09/10/23 14:53 9 ml ONCE ONE Administration Azithromycin 500 mg/ Sodium 250 mls @ 250 mls/hr 09/10/23 16:42 Chloride IV 09/10/23 16:43 ONCE ONE Methylprednisolone Sodium Succinate 125 mg 09/10/23 14:52 09/10/23 15:01 Methylprednisolone Sod Succ 125mg Vial IV 09/10/23 14:53 125 mg ONCE ONE Administration ORDERS Category Date Time Status CXR 2 view (NOT portable) [XR chest 2V] Stat Exams 09/10/23 14:52 Taken CBC w/Auto Diff [Complete Blood Count Auto Diff] Stat Lab 09/10/23 14:47 Completed CMP [Comprehensive Metabolic Panel] Stat Lab 09/10/23 14:47 Completed Full Resp Panel w/COVID ([facility]) Routine Lab 09/10/23 16:41 Ordered NT Pro Brain Natriuretic Pep. Stat Lab 09/10/23 14:47 Completed Trop I [Troponin I] Stat Lab 09/10/23 14:47 Completed Troponin I Q3H Lab 09/10/23 16:00 Received Troponin I Q3H Lab 09/10/23 21:00 Ordered VBG [Venous Blood Gas] Stat RT 09/10/23 14:51 Completed ECG Data Tracing #1: ECG Narrative: Independently interpreted by me rate is 65, rhythm is regular, axis is normal, no ST elevation in anatomical contiguous leads, QTc 398. MDM Narrative Medical Decision Narrative: This is a 72-year-old female history of hypertension, hyperlipidemia, COPD on 3 L nasal cannula at night, CHF presenting with shortness of breath. Patient states she has been feeling short of breath with a cough since last week. She saw her family doctor 5 days prior to this visit, he prescribed azithromycin and gave her steroid shot. She states she felt better for about 2 days, now feeling worse. Cough is nonproductive, but feels like it needs to be. States that she has felt febrile, no objective temperatures of the measured. No obvious weight gain, night sweats, chest pain, nausea, vomiting, diarrhea, or any other concerns. History was obtained via conversation with patient. On arrival, patient hemodynamically stable, alert, oriented x4, appropriate, GCS 15, moving all extremities spontaneously, pupils equal and reactive to light. Full physical exam performed and significant for uncomfortable appearing woman who is in mild respiratory distress. Diffuse bilateral expiratory wheezes heard throughout expiration, patient also has inspiratory crackles heard left lower lung pelayo anteriorly. No lower extremity edema, no cyanosis, patient 93% on room air, appropriate for COPD. Patient was given 3 DuoNebs, 5 for symptomatic management and correction of underlying abnormalities. Patient placed on continuous cardiac monitoring and continuous pulse ox with initial blood pressure 179/91, heart rate 76, saturation 93% on room air. Heart/[id number]/Wells/PERC/Age adjusted/YEARS. Prior to EKG, chest x-ray, hematologic workup, and disposition, care handed off to oncoming physician. Teacher Private disclaimer Much of this encounter note is an electronic chisel worker spoken language to printed text. Electronic chisel worker of the spoken language may permit errors. Although I have reviewed the note, some errors may still exist. Yousuf Hoff: Upon assumption of care patient was hemodynamically stable. Initial workup reviewed by me, hematologic labs are nonactionable, no significant leukocytosis, compensated acid-base status, no hypercarbia, chronic hyponatremia, no PORSHA or critical electrolyte abnormality. Initial troponin undetectably low. Upon repeat evaluation patient had persistent right-sided wheezing. Chest x-ray informally interpreted by me, right lower lobe pneumonia. Given failure of outpatient therapy I contacted Dr. Valentine who stated she was on Levaquin monotherapy. Given this we will be converted to ceftriaxone and azithromycin. Continuous albuterol for 1 hour will be administered. IV magnesium will be administered. Comprehensive viral respiratory panel will be obtained. Crystalloid bolus will not be administered given that patient appears euvolemic to slightly volume up. Case was discussed with hospital medicine regarding management patient be admitted to their service for continued evaluation at this time.
[2023-09-10] MEDS: METHYLPREDNISOLONE SOD SUCC 125MG VIAL 125 MG IV (15:01)
[2023-09-10] MEDS: IPRATROPIUM/ALBUTEROL 3 ML NEB 9 ML IH (15:01)
[2023-09-10 15:11] LABS: Basophils # 0.1 K/mm3 (0-0.2); Basophils % 1.1 % (0.1-2.0); Eosinophils # 0.3 K/mm3 (0.0-0.4); Eosinophils % 3.3 % (0.1-12.0); Hematocrit 50.5 % (37.0-47.0); Hemoglobin 16.4 g/dL (12.2-16.2); Lymphocytes # 2.9 K/mm3 (0.7-4.5); Lymphocytes % 28.7 % (10-50); Mean Corpuscular HGB Conc 32.4 g/dL (31.8-35.4); Mean Corpuscular Hemoglobin 29.5 pg (27.0-31.2); Mean Corpuscular Volume 90.9 fl (81-99); Mean Platelet Volume 7.8 fl (7.4-10.4); Monocytes # 0.5 K/mm3 (0.1-1.0); Monocytes % 4.5 % (1.7-9.3); Neutrophils # 6.3 K/mm3 (1.8-7.8); Neutrophils % 62.5 % (37.0-80.0); Platelet Count 341 K/mm3 (142-424); Red Blood Count 5.55 M/mm3 (4.20-5.40); White Blood Count 10.1 K/mm3 (4.8-10.8)
--- NOTE | 2023-09-10 15:13 | ECG_ITS ---
APPROVED REPORT Exam: Resting ECG HR:65 bpm ECG Measurements Heart Rate 65 AXES LA 136 P 31 QRSd 76 QRS 1 QT 386 T 58 QTc 398 Conclusion SINUS RHYTHM LOW QRS VOLTAGE IN PRECORDIAL LEADS [QRS DEFLECTION < 1.0 mV IN CHEST LEADS] BORDERLINE ECG Electronically signed by : MAULIK MACIAS, 09/12/2023 10:27:07
[2023-09-10 15:18] LABS: Alanine Aminotransferase 17 U/L (12-78); Albumin Level 4.2 g/dl (3.5-5.0); Albumin/Globulin Ratio 1.4 (1.1-1.8); Alkaline Phosphatase 94 U/L (38-126); Anion Gap 4.4 mEq/L (5-15); Aspartate Amino Transferase 30 U/L (14-36); Bilirubin,Total 0.7 mg/dl (0.2-1.3); Blood Urea Nitrogen 21 mg/dl (7-17); Calcium 9.3 mg/dl (8.4-10.2); Carbon Dioxide 32 mmol/L (22.0-30.0); Chloride 99 mmol/L (98-107); Creatinine Clearance Estimated 47 mL/min (50-200); Estimated Glomerular Filt Rate 82 ml/min (>60); GFR (African American) 100 ML/MIN (>60); Globulin 3.1 g/dL (1.3-3.2); Glucose 102 mg/dl (74-100); Potassium 4.4 mmoL/L (3.5-5.1); Sodium 131 mmol/L (136-145); Total Protein,Serum 7.3 g/dl (6.3-8.2)
[2023-09-10 15:27] LABS: NT Pro Brain Natriuretic Pep. 627 pg/mL (0-125)
[2023-09-10 15:30] LABS: Troponin I < 0.01 ng/ml (0.00-0.034)
--- NOTE | 2023-09-10 16:05 | PC.NURSE ---
rounded on pt no needs at this time
--- NOTE | 2023-09-10 16:10 | PC.NURSE ---
PT TO XR
[2023-09-10 16:11] LABS: Lactate Venous 1.8 mmol/L (0.4-2.0); VBG Base Excess 1.9 mmol/L (-2.4-2.3); VBG HCO3 27.1 mmol/L (23-30); VBG Oxygen Saturation 86.8 % (50-70); VBG PCO2 47.6 mmol/L (35-51); VBG PH 7.37 mmol/L (7.31-7.41); VBG PO2 46.8 mmol/L (28-40); VBG Total CO2 28.6 mmol/L (23-27)
--- NOTE | 2023-09-10 16:43 | PC.NURSE ---
DR MACIAS SPEAKING WITH HOSPITALIST
--- NOTE | 2023-09-10 16:46 | PC.NURSE ---
POWDER COAT PAINTER NOTIFIED OF ADMISSION
[2023-09-10] MEDS: ALBUTEROL 0.083% 2.5 MG/3 ML NEB 20 MG IH (16:50)
[2023-09-10 16:51] LABS: Troponin I < 0.01 ng/ml (0.00-0.034)
[2023-09-10 16:51] LABS: Adenovirus,PCR Not Detected (NotDetected); Bordetella Pertussis Not Detected (NotDetected); Chlamydophila Pneumoniae, PCR Not Detected (NotDetected); Coronavirus 19, PCR Not Detected (NotDetected); Coronavirus 229E Not Detected (NotDetected); Coronavirus NL63 Not Detected (NotDetected); Coronavirus OC43 Not Detected (NotDetected); Coronovirus HKU1,PCR Not Detected (NotDetected); Human Metapneumovirus Not Detected (NotDetected); Influenza A, PCR Not Detected (NotDetected); Influenza AH1, 2009 Not Detected (NotDetected); Influenza AH1, PCR Not Detected (NotDetected); Influenza AH3,PCR Not Detected (NotDetected); Influenza B, PCR Not Detected (NotDetected); Mycoplasma Pneumoniae, PCR Not Detected (NotDetected); Parainfluenza 1, PCR Not Detected (NotDetected); Parainfluenza 2, PCR Not Detected (NotDetected); Parainfluenza 3, PCR Not Detected (NotDetected); Parainfluenza 4, PCR Not Detected (NotDetected); Respiratory Syncytial Virus Not Detected (NotDetected); Rhinovirus/Enterovirus Not Detected (NotDetected)
[2023-09-10] MEDS: CEFTRIAXONE 1 GM 1 GM in 0.9 % SODIUM CHLORIDE 50 ML IV (16:52)
--- NOTE | 2023-09-10 17:06 | ECG_ITS ---
APPROVED REPORT Exam: Resting ECG HR:117 bpm ECG Measurements Heart Rate 117 AXES MS 121 P 65 QRSd 74 QRS 18 QT 314 T 68 QTc 383 Conclusion SINUS TACHYCARDIA LOW QRS VOLTAGE IN PRECORDIAL LEADS [QRS DEFLECTION < 1.0 mV IN CHEST LEADS] Electronically signed by : MAULIK MACIAS, 09/12/2023 10:17:49
[2023-09-10] MEDS: ONDANSETRON 4MG/2ML VIAL 4 MG IV (17:07)
[2023-09-10] MEDS: MAGNESIUM SULFATE IN WATER 2 GM/50 ML PIGGYBACK IV (17:07)
[2023-09-10] MEDS: diphenhydrAMINE 50MG/ML VIAL 50 MG IV (17:10)
[2023-09-10] MEDS: EPINEPHrine 1 MG/ML AMPUL 0.3 MG IM (17:10)
[2023-09-10] MEDS: FAMOTIDINE 20MG/2ML VIAL 20 MG IV (17:10)
--- NOTE | 2023-09-10 17:29 | CT_ITS ---
PROCEDURE INFORMATION: Exam: CTA Chest With Contrast Exam date and time: 09/10/2023 8:41 PM Age: 72 years old Clinical indication: Dyspnea; Additional info: Dyspnea, copd, HX of pe in 2021 TECHNIQUE: Imaging protocol: Computed tomographic angiography of the chest with contrast. Exam focused on the arteries. 3D rendering (Not supervised by radiologist): MIP and/or 3D reconstructed images were created by the technologist. Radiation optimization: All CT scans at this facility use at least one of these dose optimization techniques: automated exposure control; mA and/or kV adjustment per patient size (includes targeted exams where dose is matched to clinical indication); or iterative reconstruction. Contrast material: ISOVUE 370; Contrast volume: 100 ml; Contrast route: INTRAVENOUS (IV); COMPARISON: CT ANGIO CHEST PE PROTOCOL 06/02/2021 2:46 PM FINDINGS: Pulmonary arteries: No CT angiography evidence of pulmonary embolism. Aorta: There is mild calcific atherosclerotic disease of the thoracic aorta without aneurysmal dilatation. Lungs: Near-complete atelectasis of the right middle lobe which could be related to endobronchial filling defects which may represent mucous plugging versus endobronchial lesions. Dependent bilateral lung base opacities favor atelectasis. Mild centrilobular emphysematous changes with an apical gradient is present. Multiple sub 6 mm pulmonary nodules throughout the lungs. Left upper lobe suspicious 18 mm nodule with spiculated margins, axial image 51 of series 5 previously measuring 4 mm in diameter in July 2022. Pleural spaces: Unremarkable. No pneumothorax. No pleural effusion. Heart: Unremarkable. No cardiomegaly. No pericardial effusion. Coronary arteries: Mild calcific atherosclerotic disease of the LAD. Lymph nodes: Unremarkable. No enlarged lymph nodes. Intestine: Postsurgical changes with chain suture material at the left upper quadrant compatible with Bal-en-Y gastric bypass. Bones/joints: Unremarkable. No acute fracture. Soft tissues: Unremarkable. IMPRESSION: 1. Near-complete atelectasis of the right middle lobe which could be related to endobronchial filling defects which may represent mucous plugging versus endobronchial lesions. Consider further evaluation with bronchoscopy. 2. Multiple sub 6 mm pulmonary nodules throughout the lungs. Left upper lobe suspicious 18 mm nodule with spiculated margins, axial image 51 of series 5 previously measuring 4 mm in diameter in July 2022. For patients at low risk (minimal or absent history of smoking and of other known risk factors), recommend CT Chest at 3-6 months, then consider CT Chest at 18-24 months. For patients at high risk (history of smoking or of other known risk factors), recommend CT Chest at 3-6 months, then CT Chest at 18-24 months. (Reference: Zachary) 3. No CT angiography evidence of pulmonary embolism. COMMENTS: The presence of pulmonary emphysema on CT is an independent risk factor for lung cancer. In the absence of a history or active diagnosis of lung cancer, it is recommended that this patient with emphysema be evaluated for enrollment in a low dose CT lung cancer screening program. REFERENCES: Zachary Levin et al. Guidelines for Management of Incidental Pulmonary Nodules Detected on CT Images: From the Fleischner Society 2017. Radiology. 2017;284(1):228-243.
--- NOTE | 2023-09-10 17:32 | EXP.HP ---
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 She reports not feeling better so she presented to [facility] emergency department for evaluation. Her past medical history is significant for COPD with ongoing tobacco dependence and diastolic congestive heart failure. She reports that she normally uses 3 L of oxygen at home. She reports no NIPPV therapy. She describes previous pulmonology and cardiology evaluations. She describes dyspnea with exertion over a few days and now occurring at rest. She endorses orthopnea. She describes an occasional cough with lower extremity edema. Her cough is nonproductive. She denies hemoptysis. She denies associated retrosternal chest pain, palpitations, confusion, falls or syncope. In the ED a chest x-ray is concerning for pulmonary edema and her proBNP is elevated. She was administered IV antibiotic therapy and immediately after IV Rocephin she reported increased dyspnea, nausea and vomiting. She received anaphylaxis therapy in the ED. Currently she reports feeling better. [facility] Disclaimer: The information contained in this section may have been updated after the patient was seen, as this information can be updated by other users. Medical History (Updated 09/10/23 @ 18:19 by Lee Flores MD) Pulmonary embolism GERD (gastroesophageal reflux disease) Depression Anxiety Hoarseness Abnormal CT lung screening Abnormal chest x-ray Dyspnea Surgical History (Updated 08/09/22 @ 15:08 by Bing Rueda RN) H/O gastric bypass Gastric bypass status for obesity Family History (Updated 08/09/22 @ 15:10 by Bing Rueda RN) Other Family history of COPD (chronic obstructive pulmonary disease) Kidney failure Stroke Social History (Updated 08/09/22 @ 15:10 by Bing Rueda RN) Smoking Status: Unknown if ever smoked second hand exposure: Yes alcohol intake: never substance use type: denies use current occupational status: retired Travel in the last 8 weeks: None household members: spouse housing: house current occupational exposures/hazards: No caffeine: Yes Review of Systems Review of Systems Review of systems:: pertinent systems reviewed and negative unless documented below *Cardiovascular Cardiovascular: Denies chest pain, Denies chest pain at rest, Reports dyspnea, Reports dyspnea on exertion, Reports orthopnea and Denies palpitations *Respiratory Respiratory: Reports dyspnea and Reports dyspnea on exertion Endocrine Endocrine: Denies palpitations Meds Home Medications and Allergies Home Medications Medication Instructions Recorded Confirmed Type gabapentin 300 mg capsule 600 mg PO HS Restless leg 03/16/19 08/09/22 History pramipexole 0.5 mg tablet 0.5 mg PO HS Restless leg 03/17/19 09/10/23 History famotidine 20 mg tablet 20 mg PO BID Acid reflux 08/09/22 08/09/22 History ipratropium 0.5 mg-albuterol 3 mg 3 ml IH Q4HP PRN Shortness Of 08/09/22 08/09/22 History (2.5 mg base)/3 mL nebulization Breath soln promethazine 25 mg tablet 25 mg PO Q6HP PRN Nausea And 08/09/22 08/09/22 History Vomiting ferrous sulfate 325 mg (65 mg 325 mg PO DAILY 09/10/23 09/10/23 History iron) tablet (Iron (ferrous sulfate)) New Prescriptions to Start Prescriptions: Allergies Allergy/AdvReac Type Severity Reaction Status Date / Time ceftriaxone [From [facility]] Allergy Severe Anaphylaxis Verified 09/10/23 17:36 Exam Data for Last 24 hours Vital signs and Labs for Last 24 Hours: Temp Pulse Resp BP Pulse Ox O2 Del Method 98.0 F 98 H 20 110/57 L 96 Nasal Cannula 09/10/23 14:41 09/10/23 17:01 09/10/23 14:41 09/10/23 17:01 09/10/23 17:01 09/10/23 17:01 Laboratory Results - last 24 hr 09/10/23 14:47: WBC 10.1, RBC 5.55 H, Hgb 16.4 H, Hct 50.5 H, MCV 90.9, MCH 29.5, MCHC 32.4, RDW 14.0, Plt Count 341, MPV 7.8, Neut % (Auto) 62.5, Lymph % (Auto) 28.7, Archer % (Auto) 4.5, Eos % (Auto) 3.3, Baso % (Auto) 1.1, Neut # (Auto) 6.3, Lymph # (Auto) 2.9, Archer # (Auto) 0.5, Eos # (Auto) 0.3, Baso # (Auto) 0.1, Sodium 131 L, Potassium 4.4, Chloride 99, Carbon Dioxide 32 H, Anion Gap 4.4 L, BUN 21 H, Creatinine 0.70, Estimated Creat Clear 47, Estimated GFR 82, Est GFR ( Amer) 100, Glucose 102 H, Calcium 9.3, Total Bilirubin 0.7, AST 30, ALT 17, Alkaline Phosphatase 94, Troponin I < 0.01, NT-Pro-B Natriuret Pep 627 H, Total Protein 7.3, Albumin 4.2, Globulin 3.1, Albumin/Globulin Ratio 1.4 09/10/23 14:51: VBG pH 7.37, VBG pCO2 47.6, VBG pO2 46.8 H, VBG HCO3 27.1, VBG Total CO2 28.6 H, VBG O2 Saturation 86.8 H, VBG Base Excess 1.9, VBG Lactic Acid 1.8 09/10/23 16:00: Troponin I < 0.01 I & O for Last 24 hours: Intake & Output 09/07/23 09/08/23 09/09/23 09/10/23 23:59 23:59 23:59 23:59 Weight 57.606 kg Constitutional Constitutional: no acute distress, average body habitus, chronically ill appearing and cooperative *Routine HEENT Exam Head: Present normocephalic Eye: Present EOMI ENT: Present mucous membranes moist *Routine Neck Exam Neck: Present supple and trachea midline; Absent JVD or lymphadenopathy *Routine Respiratory Exam Respiratory: Present rhonchi, wheezes, crackles, diminished air movement and symmetric chest movement *Routine Cardiovascular Exam Cardiovascular: Present RRR *Routine Abdominal Exam Abdominal: Present soft and normoactive bowel sounds; Absent tenderness *Routine Rectal Exam Rectal:: deferred *Routine Genitalia Exam Genitalia:: deferred *Routine Extremities Exam Extremities: Present edema, full ROM and normal capillary refill *Routine Skin Exam Skin: Present warm; Absent rash *Routine Neurological Exam Neurological: Present alert, oriented X3, moving all extremities, vision grossly intact, hearing grossly intact and normal speech; Absent sensory deficit or motor deficit Routine Psychiatric Exam Psychiatric: Present normal affect, normal thought process, cooperative, good insight and good judgment Assessment and Plan *Assessment and plan (1) Acute on chronic hypoxic respiratory failure: Status: Acute Category: Medical Code(s): J96.21 - Acute and chronic respiratory failure with hypoxia (2) Acute exacerbation of chronic obstructive pulmonary disease: Status: Acute Category: Medical Code(s): J44.1 - Chronic obstructive pulmonary disease with (acute) exacerbation (3) Tobacco dependence: Status: Acute Category: Medical Code(s): F17.200 - Nicotine dependence, unspecified, uncomplicated (4) Acute on chronic heart failure with preserved ejection fraction (HFpEF): Status: Acute Category: Medical Code(s): I50.33 - Acute on chronic diastolic (congestive) heart failure (5) HTN (hypertension): Status: Chronic Qualifiers: Hypertension type: essential hypertension Qualified Code(s): I10 - Essential (primary) hypertension Category: Medical Code(s): I10 - Essential (primary) hypertension Plan Patient is a 72-year-old female with ongoing tobacco dependence and establish COPD with previous pulmonology evaluations. She presents with dyspnea to the ED and experienced an anaphylactic reaction to IV Rocephin. Problems addressed as follows: Acute on chronic hypoxic respiratory failure Acute exacerbation of COPD Tobacco dependence Pulse oximetry monitoring Oxygen therapy to maintain appropriate oxygen saturations Home oxygen requirement 3 L via nasal cannula Currently requiring 5 L NIPPV therapy ED chest x-ray with concerns of pulmonary edema CTA chest ordered MRSA pending Trending labs and inflammatory markers Alexsandra/Sydney inhalation therapy ICS therapy Prednisone p.o. x 5 days Doxycycline 100 mg p.o. twice daily Tobacco cessation education Nicotine replacement therapy Acute on chronic HFpEF Telemetry monitoring Echo (2021) with EF 55% ED proBNP elevated Accurate I's and O's Sodium and fluid restriction Routine weights Loop diuretic therapy Beta-salud therapy SGLT2 inhibitor therapy ARB therapy Assessing potassium levels for aldosterone antagonist therapy Anaphylaxis Identified in the ED IV Rocephin administered with nausea & dyspnea identified ED therapy noted Resolved VTE prophylaxis: Lovenox CODE STATUS: DNR/DNI POA: Carter-son The length of stay for this patient will be 2 midnights or greater due to above diagnoses.
--- NOTE | 2023-09-10 17:58 | PC.NURSE ---
I called report to Elizabeth BRAVO
--- NOTE | 2023-09-10 18:10 | PC.NURSE ---
Addendum entered by Marsha Blanco RN 09/10/23 18:10: anaphylaxis reaction started at 1700 Original Note: pt called out, upon entering the room pt was appeared very red all over. pt was very anxious and felt SOA. pt had just received rocephin IV. per MD pt was having an anaphylactic reaction. pt was then treated with the ordered meds. pt was moved to room 2 and placed on the zoll monitor. pts vss.
[2023-09-10] MEDS: ENOXAPARIN 40MG/0.4ML SYRINGE 40 MG SQ (18:55)
[2023-09-10] MEDS: PANTOPRAZOLE 40MG TABLET 40 MG PO (18:57)
--- NOTE | 2023-09-10 18:57 | HMH.ITSTN ---
RN to call when pt is stable for CT
[2023-09-10 19:46] LABS: Procalcitonin 0.031 ng/mL (0.0-2.0)
--- NOTE | 2023-09-10 20:34 | PC.NURSE ---
Patient leaving floor with Radiology at 20:33.
[2023-09-10] MEDS: IOPAMIDOL-370 (76%);100ML BOTTLE 100 ML IV (20:43)
[2023-09-10] MEDS: SODIUM CHLORIDE 0.9% 10ML SYR (RAD ONLY) 10 ML IV (20:43)
[2023-09-10] MEDS: 0.9 % SODIUM CHLORIDE 50 ML VIAL IV (20:43)
--- NOTE | 2023-09-10 20:49 | PC.NURSE ---
Patient arrived back to floor from Radiology at 22:50.
[2023-09-10] MEDS: BUMETANIDE 1 MG TABLET PO (21:35)
[2023-09-10] MEDS: GABAPENTIN 600MG TABLET 600 MG PO (21:35)
[2023-09-10] MEDS: PRAMIPEXOLE 0.25MG TAB 0.5 MG PO (21:35)
[2023-09-10] MEDS: CARVEDILOL 3.125MG TABLET 3.125 MG PO (21:35)
[2023-09-10 21:50] LABS: Troponin I 0.03 ng/ml (0.00-0.034)
[2023-09-10] MEDS: IPRATROPIUM/ALBUTEROL 3 ML NEB IH (23:05)
[2023-09-11] VITALS (11 sets, daily range): BP systolic 102–135; BP diastolic 54–66; PULSE 62–94; RESP 16–18; TEMP 36.6–37.2; O2SAT 93–98; BMI 27.1
[2023-09-11] MEDS: ACETAMINOPHEN 325MG TAB 1000 MG PO (02:06)
--- NOTE | 2023-09-11 04:02 | PC.NURSE ---
Patient alert and oriented x4 throughout shift. Tolerating 3L NC with O2 stats above 90%. Expiratory wheezing when auscultating lung sounds. Patient has not rested much this shift. She states she just has a hard time sleeping through the night. Patient has independently used restroom and gotten to/from chair throughout the night. VSS and call light within reach.
[2023-09-11] MEDS: BUDESONIDE 0.5MG/2ML NEB 0.5 MG IH ×2 (06:04→17:52)
[2023-09-11] MEDS: IPRATROPIUM/ALBUTEROL 3 ML NEB IH ×4 (06:04→23:14)
[2023-09-11 06:58] LABS: Basophils % 0.2 % (0.1-2.0); Eosinophils % 0.5 % (0.1-12.0); Hematocrit 46.7 % (37.0-47.0); Hemoglobin 15.1 g/dL (12.2-16.2); Lymphocytes % 14.3 % (10-50); Mean Corpuscular HGB Conc 32.3 g/dL (31.8-35.4); Mean Corpuscular Hemoglobin 29.3 pg (27.0-31.2); Mean Corpuscular Volume 90.7 fl (81-99); Mean Platelet Volume 8.4 fl (7.4-10.4); Monocytes # 0.4 K/mm3 (0.1-1.0); Monocytes % 5.6 % (1.7-9.3); Neutrophils # 5.3 K/mm3 (1.8-7.8); Neutrophils % 79.4 % (37.0-80.0); Platelet Count 312 K/mm3 (142-424); Red Blood Count 5.14 M/mm3 (4.20-5.40); White Blood Count 6.7 K/mm3 (4.8-10.8)
[2023-09-11 07:09] LABS: Chloride 96 mmol/L (98-107)
[2023-09-11 07:10] LABS: Potassium 4.7 mmoL/L (3.5-5.1); Sodium 130 mmol/L (136-145)
[2023-09-11 07:13] LABS: Anion Gap 10.7 mEq/L (5-15); Blood Urea Nitrogen 22 mg/dl (7-17); Calcium 9.2 mg/dl (8.4-10.2); Carbon Dioxide 28 mmol/L (22.0-30.0); Creatinine Clearance Estimated 50 mL/min (50-200); Estimated Glomerular Filt Rate 71 ml/min (>60); GFR (African American) 86 ML/MIN (>60); Glucose 158 mg/dl (74-100); Magnesium 2.1 mg/dl (1.6-2.3)
--- NOTE | 2023-09-11 07:43 | HMH.PHAINT1 ---
Pharmacy Intervention Comments: HOME MEDICATION LIST VERIFIED USING LIST FROM OUTPATIENT PHARMACY
[2023-09-11] MEDS: ENOXAPARIN 40MG/0.4ML SYRINGE 40 MG SQ (08:10)
[2023-09-11] MEDS: BUMETANIDE 1 MG TABLET PO ×2 (08:11→15:12)
[2023-09-11] MEDS: IRBESARTAN 75MG TABLET 75 MG PO (08:12)
[2023-09-11] MEDS: CARVEDILOL 3.125MG TABLET 3.125 MG PO ×2 (08:12→21:17)
[2023-09-11] MEDS: predniSONE 20MG TAB 40 MG PO (08:12)
--- NOTE | 2023-09-11 08:44 | PC.NURSE ---
Pt. agrees to call out to get up out of the bed.
[2023-09-11] MEDS: SODIUM CHLORIDE 3% 15ML NEB 3 ML IH (11:26)
[2023-09-11] MEDS: levoFLOXacin 750 MG TABLET PO (12:05)
[2023-09-11] MEDS: ONDANSETRON 4MG/2ML VIAL 4 MG IV (12:48)
--- NOTE | 2023-09-11 14:29 | PC.NURSE ---
Aox 4, up as tolerated, 02-3L NC, low na+ diet, 20g L AC sl.
--- NOTE | 2023-09-11 18:22 | CA_ITS ---
APPROVED REPORT EXAM: Limited 2D Echocardiogram Slide Maker: Jeimy Velez CRT Ht: 4 ft 11 in Wt: 127lbs BSA: 1.52 BP: 110/57 mmHg Indications: CH, DNR, HOME O2, HTN, HLD, SOB, EDEMA M-Mode Dimensions RVDd 2.35 cm (0.9-2.6) LA Diam 2.76 cm (1.9-4.0) LVDd 3.63 cm (3.5-5.7) LVDs 2.15 cm (3.5-5.7) IVSd 1.10 cm (0.6-1.1) PWd 0.67 cm (0.6-1.1) EF (Teich) 72.40% FS 40.80% EDV (Teich) 55.50 mL ESV (Teich) 15.30 mL Other Information Study Quality: Adequate Conclusion This is a limited TTE to evaluate for LVEF and wall motion. Limited windows were obtained. The left ventricle is normal in size. There is increased LV wall thickness. There is normal global LV systolic function. There are no regional wall motion abnormalities noted. LVEF is 60%. Electronically signed by : Dara Marx MD 09/11/2023 23:27:24
--- NOTE | 2023-09-11 20:32 | P.PN_ITS ---
Subjective *Date: 09/11/23 *Time: 20:34 Interval history: Patient reports no large issues overnight. Still slightly short of breath this a.m. Medical Exam Vital signs and Labs for Last 24 Hours: Vital Signs Temp Pulse Pulse Resp BP Pulse Ox O2 Del Method 09/11/23 17:54 Nasal Cannula 09/11/23 17:52 81 09/11/23 17:52 84 09/11/23 17:52 96 Nasal Cannula 09/11/23 16:39 Nasal Cannula 09/11/23 16:00 98.1 F 73 17 115/60 96 09/11/23 13:46 Nasal Cannula 09/11/23 13:00 Nasal Cannula 09/11/23 12:00 99.0 F 94 H 18 106/57 L 98 Room Air 09/11/23 11:28 85 16 09/11/23 11:24 85 09/11/23 11:24 87 09/11/23 11:24 93 L Nasal Cannula 09/11/23 09:41 Nasal Cannula 09/11/23 08:00 97.9 F 90 18 135/61 98 Room Air 09/11/23 08:00 Nasal Cannula 09/11/23 07:45 Nasal Cannula 09/11/23 06:44 Nasal Cannula 09/11/23 06:05 62 09/11/23 06:05 68 09/11/23 06:05 98 Nasal Cannula 09/11/23 05:00 Nasal Cannula 09/11/23 04:00 97.8 F 74 18 125/66 97 Nasal Cannula 09/11/23 03:10 Nasal Cannula 09/11/23 00:57 Nasal Cannula 09/11/23 00:00 98.3 F 71 16 108/59 L 97 Nasal Cannula 09/10/23 23:12 72 09/10/23 23:12 70 09/10/23 23:00 Nasal Cannula 09/10/23 21:35 96 Nasal Cannula 09/10/23 21:00 Nasal Cannula O2 Flow Rate 09/11/23 17:54 3 09/11/23 17:52 09/11/23 17:52 09/11/23 17:52 2 09/11/23 16:39 3 09/11/23 16:00 09/11/23 13:46 3 09/11/23 13:00 3 09/11/23 12:00 09/11/23 11:28 09/11/23 11:24 09/11/23 11:24 09/11/23 11:24 3 09/11/23 09:41 09/11/23 08:00 09/11/23 08:00 3 09/11/23 07:45 3 09/11/23 06:44 3 09/11/23 06:05 09/11/23 06:05 09/11/23 06:05 3 09/11/23 05:00 3 09/11/23 04:00 3 09/11/23 03:10 3 09/11/23 00:57 3 09/11/23 00:00 3 09/10/23 23:12 09/10/23 23:12 09/10/23 23:00 3 09/10/23 21:35 3 09/10/23 21:00 3 Intake and Output 09/11/23 09/11/23 09/11/23 07:59 15:59 23:59 Intake Total 780 / 1260 480 / 1260 Output Total 0 / 0 0 / 0 0 / 0 Balance 0 / 1260 780 / 1260 480 / 1260 Intake: Intake, Oral Amount 780 / 1260 480 / 1260 Intake, Oral Supplement Amount 0 / 0 Output: Output, Urine Amount 0 / 0 0 / 0 0 / 0 Other: Number of Voids 0 Number of Unmeasured Voids 2 1 1 Weight 61.144 kg Patient Weight 09/11/23 23:59 Weight 61.144 kg Laboratory Results - last 24 hr 09/10/23 21:15: Troponin I 0.03 09/11/23 05:58: WBC 6.7 D, RBC 5.14, Hgb 15.1, Hct 46.7, MCV 90.7, MCH 29.3, MCHC 32.3, RDW 14.0, Plt Count 312, MPV 8.4, Neut % (Auto) 79.4, Lymph % (Auto) 14.3, Jefferson % (Auto) 5.6, Eos % (Auto) 0.5, Baso % (Auto) 0.2, Neut # (Auto) 5.3, Lymph # (Auto) 1.0, Jefferson # (Auto) 0.4, Eos # (Auto) 0.0, Baso # (Auto) 0.0, Sodium 130 L, Potassium 4.7, Chloride 96 L, Carbon Dioxide 28, Anion Gap 10.7, BUN 22 H, Creatinine 0.80, Estimated Creat Clear 50, Estimated GFR 71, Est GFR ( Amer) 86, Glucose 158 H D, Calcium 9.2, Magnesium 2.1 I & O for Labs for Last 24 Hours: Intake & Output 09/08/23 09/09/23 09/10/23 09/11/23 23:59 23:59 23:59 23:59 Intake Total 480 / 480 1260 / 1260 Output Total 0 / 0 0 / 0 Balance 480 / 480 1260 / 1260 Weight 57.606 kg 61.144 kg Head: Present atraumatic ENT: Present normal exam Neck: Present normal inspection Respiratory: Present distant breath sounds Cardiac: Present Reg Rate and Rhythm and Regular Rate GI: Present soft and normal bowel sounds; Absent guarding or rebound Extremities: Present normal inspection Skin: Present intact and dry Assessment and Plan *Assessment and plan (1) Acute on chronic hypoxic respiratory failure: Status: Acute Category: Medical Code(s): J96.21 - Acute and chronic respiratory failure with hypoxia (2) Tobacco dependence: Status: Acute Category: Medical Code(s): F17.200 - Nicotine dependence, unspecified, uncomplicated (3) Acute on chronic heart failure with preserved ejection fraction (HFpEF): Status: Acute Category: Medical Code(s): I50.33 - Acute on chronic diastolic (congestive) heart failure (4) COPD (chronic obstructive pulmonary disease): Status: Acute Qualifiers: COPD type: chronic bronchitis Chronic bronchitis type: mucopurulent Qualified Code(s): J41.1 - Mucopurulent chronic bronchitis Category: Medical Code(s): J44.9 - Chronic obstructive pulmonary disease, unspecified (5) Acute combined systolic (congestive) and diastolic (congestive) heart failure: Status: Acute Category: Medical Code(s): I50.41 - Acute combined systolic (congestive) and diastolic (congestive) heart failure (6) Diastolic dysfunction: Status: Chronic Category: Medical Code(s): I51.89 - Other ill-defined heart diseases (7) HTN (hypertension): Status: Chronic Qualifiers: Hypertension type: essential hypertension Qualified Code(s): I10 - Essential (primary) hypertension Category: Medical Code(s): I10 - Essential (primary) hypertension Plan Plan Patient is a 72-year-old female with ongoing tobacco dependence and establish COPD with previous pulmonology evaluations. She presents with dyspnea to the ED and experienced an anaphylactic reaction to IV Rocephin. Problems addressed as follows: Acute on chronic hypoxic respiratory failure Acute exacerbation of COPD Tobacco dependence Pulse oximetry monitoring Oxygen therapy to maintain appropriate oxygen saturations Home oxygen requirement 3 L via nasal cannula Currently requiring 5 L NIPPV therapy ED chest x-ray with concerns of pulmonary edema CTA chest ordered MRSA pending Trending labs and inflammatory markers Alexsandra/Sydney inhalation therapy ICS therapy Prednisone p.o. x 5 days Doxycycline 100 mg p.o. twice daily Tobacco cessation education Nicotine replacement therapy Acute on chronic HFpEF Telemetry monitoring Echo (2021) with EF 55% ED proBNP elevated Accurate I's and O's Sodium and fluid restriction Routine weights Loop diuretic therapy Beta-salud therapy SGLT2 inhibitor therapy ARB therapy Assessing potassium levels for aldosterone antagonist therapy Anaphylaxis Identified in the ED IV Rocephin administered with nausea & dyspnea identified ED therapy noted Resolved VTE prophylaxis: Lovenox CODE STATUS: DNR/DNI POA: Carter-son Physician: Patient appears to be improving with aforementioned therapies above. Will likely discharge patient home tomorrow with instructions to follow-up with pulmonary/cardiology on outpatient basis.
[2023-09-11] MEDS: GABAPENTIN 600MG TABLET 600 MG PO (21:17)
[2023-09-11] MEDS: PANTOPRAZOLE 40MG TABLET 40 MG PO (21:17)
[2023-09-11] MEDS: PRAMIPEXOLE 0.5 MG 1 EACH PO (21:17)
[2023-09-12] VITALS: BP 116/49; PULSE 66; RESP 16; TEMP 36.9; O2SAT 93
[2023-09-12 04:00] VITALS: BP 103/52; PULSE 62; RESP 18; TEMP 36.9; O2SAT 97; BMI 26.2
[2023-09-12] MEDS: IPRATROPIUM/ALBUTEROL 3 ML NEB IH ×2 (06:06→11:12)
[2023-09-12 06:07] VITALS: PULSE 70; PULSE 74; O2SAT 97
[2023-09-12] MEDS: BUDESONIDE 0.5MG/2ML NEB 0.5 MG IH (06:07)
[2023-09-12 08:00] VITALS: BP 106/56; PULSE 72; RESP 18; TEMP 36.6; O2SAT 96
[2023-09-12] MEDS: BUMETANIDE 1 MG TABLET PO (09:30)
[2023-09-12] MEDS: CARVEDILOL 3.125MG TABLET 3.125 MG PO (09:30)
[2023-09-12] MEDS: CITALOPRAM 20MG TABLET 20 MG PO (09:31)
[2023-09-12] MEDS: EMPAGLIFLOZIN 10MG TABLET 10 MG PO (09:34)
[2023-09-12] MEDS: predniSONE 20MG TAB 40 MG PO (09:35)
[2023-09-12] MEDS: ENOXAPARIN 40MG/0.4ML SYRINGE 40 MG SQ (09:36)
[2023-09-12] MEDS: IRBESARTAN 75MG TABLET 75 MG PO (09:36)
[2023-09-12 11:13] VITALS: PULSE 73; PULSE 76
[2023-09-12 11:44] VITALS: BP 114/59; PULSE 66; RESP 17; TEMP 36.6; O2SAT 97
[2023-09-12] MEDS: levoFLOXacin 750 MG TABLET PO (11:54)
--- NOTE | 2023-09-12 12:25 | EXP.DC.SUM ---
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 She reports not feeling better so she presented to [facility] emergency department for evaluation. Her past medical history is significant for COPD with ongoing tobacco dependence and diastolic congestive heart failure. She reports that she normally uses 3 L of oxygen at home. She reports no NIPPV therapy. She describes previous pulmonology and cardiology evaluations. She describes dyspnea with exertion over a few days and now occurring at rest. She endorses orthopnea. She describes an occasional cough with lower extremity edema. Her cough is nonproductive. She denies hemoptysis. She denies associated retrosternal chest pain, palpitations, confusion, falls or syncope. In the ED a chest x-ray is concerning for pulmonary edema and her proBNP is elevated. She was administered IV antibiotic therapy and immediately after IV Rocephin she reported increased dyspnea, nausea and vomiting. She received anaphylaxis therapy in the ED. Currently she reports feeling better. Hospital Course Hospital Course Hospital Course: Patient admitted to hospital with shortness of breath, and diagnosed with COPD exacerbation secondary to pneumonia. Patient initially started on IV Rocephin, but suffered from anaphylactic reaction to Rocephin. Patient then switched to IV Levaquin, and monitored in house for an additional 23 hours. Patient also given glucocorticoids after Rocephin anaphylactic reaction. Patient's breathing steadily improved, and patient back to clinical baseline by 09/12/2023. Patient ultimately discharged home on p.o. Levaquin, rescue albuterol inhaler, Trelegy, and instructions to follow-up with PCP/pulmonary on outpatient basis. Patient also evaluated for congestive heart failure during hospitalization. Although patient states she has history of congestive heart failure, patient's cardiogram 06/02/2021 showed EF 55% with grade 1 diastolic dysfunction normal limits. Patient subsequently advised to follow-up with cardiology on outpatient basis for further CHF management. Long goals of care discussion occurred between patient and Dr. Vieira at bedside. Patient opted not to be discharged on CHF medicines including Coreg, lisinopril, or diuretic. Patient will discuss these issues with her primary care physician and cardiology at follow-up appointments. Exam Data for Last 24 hours Vital signs and Labs for Last 24 Hours: Temp Pulse Resp BP Pulse Ox O2 Del Method O2 Flow Rate 97.8 F 66 17 114/59 L 97 Nasal Cannula 3 09/12/23 11:44 09/12/23 11:44 09/12/23 11:44 09/12/23 11:44 09/12/23 11:44 09/12/23 11:44 09/12/23 11:44 I & O for Last 24 hours: Intake & Output 09/09/23 09/10/23 09/11/23 09/12/23 23:59 23:59 23:59 23:59 Intake Total 480 / 480 1260 / 1500 450 / 450 Output Total 0 / 0 1 / 1 0 / 0 Balance 480 / 480 1259 / 1499 450 / 450 Weight 57.606 kg 61.144 kg 59.103 kg Results Imaging and Cardiology TESTING: Status: image reviewed by me Additional comments: Ordering Physician: Lee Flores MD Date of Service: 09/10/23 Procedure(s): CT angio chest PE protocol Accession Number(s): [id number] cc: Raleigh Valentine MD; Lee Flores MD; Rai Peng MD~ PROCEDURE INFORMATION: Exam: CTA Chest With Contrast Exam date and time: 09/10/2023 8:41 PM Age: 72 years old Clinical indication: Dyspnea; Additional info: Dyspnea, copd, HX of pe in 2021 TECHNIQUE: Imaging protocol: Computed tomographic angiography of the chest with contrast. Exam focused on the arteries. 3D rendering (Not supervised by radiologist): MIP and/or 3D reconstructed images were created by the technologist. Radiation optimization: All CT scans at this facility use at least one of these dose optimization techniques: automated exposure control; mA and/or kV adjustment per patient size (includes targeted exams where dose is matched to clinical indication); or iterative reconstruction. Contrast material: ISOVUE 370; Contrast volume: 100 ml; Contrast route: INTRAVENOUS (IV); COMPARISON: CT ANGIO CHEST PE PROTOCOL 06/02/2021 2:46 PM FINDINGS: Pulmonary arteries: No CT angiography evidence of pulmonary embolism. Aorta: There is mild calcific atherosclerotic disease of the thoracic aorta without aneurysmal dilatation. Lungs: Near-complete atelectasis of the right middle lobe which could be related to endobronchial filling defects which may represent mucous plugging versus endobronchial lesions. Dependent bilateral lung base opacities favor atelectasis. Mild centrilobular emphysematous changes with an apical gradient is present. Multiple sub 6 mm pulmonary nodules throughout the lungs. Left upper lobe suspicious 18 mm nodule with spiculated margins, axial image 51 of series 5 previously measuring 4 mm in diameter in July 2022. Pleural spaces: Unremarkable. No pneumothorax. No pleural effusion. Heart: Unremarkable. No cardiomegaly. No pericardial effusion. Coronary arteries: Mild calcific atherosclerotic disease of the LAD. Lymph nodes: Unremarkable. No enlarged lymph nodes. Intestine: Postsurgical changes with chain suture material at the left upper quadrant compatible with Bal-en-Y gastric bypass. Bones/joints: Unremarkable. No acute fracture. Soft tissues: Unremarkable. IMPRESSION: 1. Near-complete atelectasis of the right middle lobe which could be related to endobronchial filling defects which may represent mucous plugging versus endobronchial lesions. Consider further evaluation with bronchoscopy. 2. Multiple sub 6 mm pulmonary nodules throughout the lungs. Left upper lobe suspicious 18 mm nodule with spiculated margins, axial image 51 of series 5 previously measuring 4 mm in diameter in July 2022. For patients at low risk (minimal or absent history of smoking and of other known risk factors), recommend CT Chest at 3-6 months, then consider CT Chest at 18-24 months. For patients at high risk (history of smoking or of other known risk factors), recommend CT Chest at 3-6 months, then CT Chest at 18-24 months. (Reference: Zachary) 3. No CT angiography evidence of pulmonary embolism. Ordering Physician: Kwaku Rueda MD Date of Service: 09/10/23 Procedure(s): XR chest 2V Accession Number(s): [id number] cc: Raleigh Valentine MD; Gary Walter MD~ FINAL REPORT CLINICAL HISTORY: soa, CHF vs pneumonia COMPARISON: 08/09/2022 FINDINGS: Two views of the chest were obtained. The heart size is normal. There is mild pulmonary vascular congestion. The mediastinum is normal. There are mild bibasilar opacities, favor atelectasis. There is no pneumothorax. The bony thorax is intact. Postoperative changes noted in the left upper quadrant of the abdomen. IMPRESSION: Mild pulmonary vascular congestion. Mild bibasilar opacities, favor atelectasis. Ordering Physician: Jm Phipps MD Date of Service: 08/09/22 Procedure(s): XR chest 2V Accession Number(s): [id number] cc: Raleigh Valentine MD; Dayday Messer MD~ FINAL REPORT CLINICAL HISTORY: Chronic cough COMPARISON: 07/12/2022 FINDINGS: There is no evidence of effusion or other pleural disease. Emphysematous changes are noted. There is calcified granulomatous disease. The mediastinum has a normal appearance. The cardiac silhouette is unremarkable. IMPRESSION: No acute pulmonary abnormality. Ordering Physician: Raleigh Valentine MD Date of Service: 06/02/21 Procedure(s): CA echo doppler complete Accession Number(s): [id number] cc: Raleigh Valentine MD; Solitario Richter MD~ APPROVED REPORT 06/02/2021 echocardiogram: EXAM: Comprehensive 2D, Doppler, and color-flow Echocardiogram Property Site Manager: Dawna Rubio, RT(R) Ht: 4 ft 11 in Wt: 144lbs BSA: 1.60 BP: 150/90 mmHg Indications: COPD, ex smoker, edema, HTN, REID, hyperlipidemia, GERD, CHF 2D Dimensions LVOT 1.91 cm (M/F) 1.5-2.5LVEF (Mackenzie's) 59.70 % F: 54 - 74 LV Volume 49.10 mL F: 46 - 106 LV Volume Index 30.68 mL/m2 F: 29 - 61 M-Mode Dimensions RVDd 2.00 cm (0.9-2.6)LA Diam 3.11 cm (1.9-4.0) LVDd 4.32 cm (3.5-5.7)Ao Diam 2.99 cm (2.0-3.7) LVDs 2.92 cm (3.5-5.7)IVSd 0.72 cm (0.6-1.1) PWd 0.84 cm (0.6-1.1)EF (Teich) 61.00% FS 32.40% EDV (Teich) 84.00 mL ESV (Teich) 32.80 mL LV Diastology E Decel Time 213.00 (160-240 msec)E/A Ratio 0.8 MED E' 10.20 (< 7 cm/sec)E'/MED E' Ratio5.88 (>14) LAT E' 8.60 (<10 cm/sec)E/LAT E' Ratio 6.98 (>14) Mitral Valve MV E Max Syed. 60.00 (40-130 cm/s)MV A Velocity 76.00 (40-130 cm/s) E/A Ratio 0.79MV Decel. Koiw434.00 (160-240 ms) MV PHT 62.00 ms Tricuspid Valve TR P. Qzijmivo247.00 cm/sRAP Estimate 10.00 mmHg RVSP 28.20 mmHg Left Ventricle Left atrium is mildly enlarged, left ventricle is normal size, mild concentric left ventricular hypertrophy, estimated ejection fraction 55% with no regional wall motion abnormality, grade 1 diastolic dysfunction seen without tissue Doppler evidence of raise left atrial pressure. Right Ventricle Right atrium and right ventricle are normal size and contractility. Aortic Valve Aortic valve is minimally thickened and calcified without aortic stenosis or aortic insufficiency. Mitral Valve Mitral valve is grossly normal, there is trace mitral regurgitation. Tricuspid Valve Tricuspid grossly normal, there is trace tricuspid regurgitation, tricuspid regurgitation jet velocity is inadequate for calculation of the right ventricular systolic pressure. Pulmonic Valve Pulmonic valve is poorly visualized. Great Vessels Aortic root is normal size. Inferior vena cava is poorly visualized. Pericardium No significant pericardial effusion noted. Conclusion 1. Mildly enlarged left atrium, normal left ventricular size, mild concentric left ventricular hypertrophy visually estimated ejection fraction 55% with no regional wall motion abnormality, grade 1 diastolic dysfunction seen without tissue Doppler evidence of raise left atrial pressure. 2. Thickened and calcified aortic valve without aortic stenosis or aortic insufficiency. 3. Trace mitral and tricuspid regurgitation. 4. No significant pericardial effusion. 5. Inferior vena cava is poorly visualized. DS: Diagnosis Discharge Diagnosis (1) Acute on chronic hypoxic respiratory failure: Status: Acute Code(s): J96.21 - Acute and chronic respiratory failure with hypoxia (2) Tobacco dependence: Status: Acute Code(s): F17.200 - Nicotine dependence, unspecified, uncomplicated (3) Acute on chronic heart failure with preserved ejection fraction (HFpEF): Status: Acute Code(s): I50.33 - Acute on chronic diastolic (congestive) heart failure (4) COPD (chronic obstructive pulmonary disease): Status: Acute Code(s): J44.9 - Chronic obstructive pulmonary disease, unspecified Qualifiers: COPD type: chronic bronchitis Chronic bronchitis type: mucopurulent Qualified Code(s): J41.1 - Mucopurulent chronic bronchitis (5) Acute combined systolic (congestive) and diastolic (congestive) heart failure: Status: Acute Code(s): I50.41 - Acute combined systolic (congestive) and diastolic (congestive) heart failure (6) Diastolic dysfunction: Status: Chronic Code(s): I51.89 - Other ill-defined heart diseases (7) HTN (hypertension): Status: Chronic Code(s): I10 - Essential (primary) hypertension Qualifiers: Hypertension type: essential hypertension Qualified Code(s): I10 - Essential (primary) hypertension Meds Home Medications and Allergies Home Medications Medication Instructions Recorded Confirmed Type gabapentin 300 mg capsule 600 mg PO HS 03/16/19 09/10/23 History pramipexole 0.5 mg tablet 0.5 mg PO HS 03/17/19 09/10/23 History famotidine 20 mg tablet 20 mg PO BID 08/09/22 09/10/23 History ferrous sulfate 325 mg (65 mg 325 mg PO DAILY 09/10/23 09/10/23 History iron) tablet (Iron (ferrous sulfate)) escitalopram oxalate 10 mg tablet 10 mg PO DAILY 09/11/23 09/11/23 History albuterol sulfate 90 mcg/actuation 2 puff inhalation Q6H PRN 09/12/23 Rx aerosol inhaler shortness of breath or wheezing #8.5 grams fluticasone fur. 100 mcg-umeclid 1 inh inhalation Q24H #60 ea 09/12/23 Rx 62.5 mcg-vilant 25 mcg inhalat.powder (Trelegy Ellipta) levofloxacin 750 mg tablet 750 mg PO DAILY #5 tabs 09/12/23 Rx prednisone 20 mg tablet 40 mg (2 x 20 mg) PO DAILY #8 tabs 09/12/23 Rx New Prescriptions to Start Prescriptions: albuterol sulfate Vieira,Ravi ekbuagrhpmo-[id number] [Trelegy Ellipta] Vieira,Ravi levofloxacin Vieira,Ravi prednisone Vieira,[place] Allergies Allergy/AdvReac Type Severity Reaction Status Date / Time ceftriaxone [From Rocephin] Allergy Severe Anaphylaxis Verified 09/10/23 17:36 Discharge Plan Disposition Patient Disposition: Home, Self-Care Condition: Fair Follow up Plan Follow up with: Cardiology [Provider Group] - Enter time for follow up Rai Crawford MD [Staff Physician] - 1 month (History of abnormal echocardiogram and previously diagnosed with heart failure. Most recent echocardiogram done during hospitalization 09/10 normal EF. Patient hesitant to take CHF appropriate medications. Please correctional counselor/case manager patient as outpatient. Thank you) Dimple Orantes MD [Physician] - 2 weeks (For continued COPD/pneumonia management) Raleigh Valentine MD [Primary Care Provider] - 09/18/23 9:30 am Prescriptions/Medication Reconciliation: New levofloxacin 750 mg tablet 750 mg PO DAILY Qty: 5 0RF Rx Instructions: next dose 09/13/23 prednisone 20 mg Tablet 40 mg PO DAILY Qty: 8 0RF Rx Instructions: next dose 09/13/23 Trelegy Ellipta 100-62.5-25 mcg blister with device 1 inh inhalation Q24H Qty: 60 0RF albuterol sulfate 90 mcg/actuation HFA aerosol inhaler 2 puff inhalation Q6H PRN (Reason: shortness of breath or wheezing) Qty: 8.5 0RF Continued gabapentin 300 MG capsule 600 mg PO HS Patient Comments: TAKE 2 CAPSULES BY MOUTH AT BEDTIME pramipexole 0.5 MG tablet 0.5 mg PO HS famotidine 20 mg tablet 20 mg PO BID Patient Comments: TAKE 1 TABLET BY MOUTH TWICE DAILY ferrous sulfate [Iron (ferrous sulfate)] 325 mg (65 mg iron) Tablet 325 mg PO DAILY escitalopram oxalate 10 mg tablet 10 mg PO DAILY Problem Reconciliation Problems Reviewed?: Yes Patient Discharge Instructions ACTIVITY: Continue current activity DIET: continue same diet Patient Instructions: DI for Chronic Obstructive Pulmonary Disease, DI for Pneumonia -- Adult Print Language: Sinhala Providers Primary Care Provider: Raleigh Valentine Admit Provider: Lee Flores Attending Provider: Lee Flores
== END 2023-09-12 13:37 | disposition home or self-care (01) ==
LOC: ER 16:47 → 2ND 17:02
PROVIDERS: Emergency Medicine; Admitting Provider Family Medicine; Emergency Provider Emergency Medicine; PCP Internal Medicine Adolescent Medicine; Visit Provider Family Medicine
DX: J96.21 Acute and chronic respiratory failure with hypoxia (principal); J44.1 Chronic obstructive pulmonary disease with (acute) exacerbation; F17.210 Nicotine dependence, cigarettes, uncomplicated; I11.0 Hypertensive heart disease with heart failure; J41.1 Mucopurulent chronic bronchitis; T36.1X5A Adverse effect of cephalosporins and other beta-lactam antibiotics, initial encounter; I50.41 Acute combined systolic (congestive) and diastolic (congestive) heart failure; T78.2XXA Anaphylactic shock, unspecified, initial encounter; Z99.81 Dependence on supplemental oxygen
CPT/HCPCS: 36415; 71046; 71275; 80048; 80053; 82803; 83735; 83880; 84145; 84484; 85025; 87581; 87632; 87635; 87798; 93005; 93308; 94640; 94761; 99285; G0378; J0696; J1650; J2405; J2919; J3475; J7613; J7620; Q9967

== ENCOUNTER 2023-10-04 11:10 | Outpatient (CLI) | payer MEDICARE, OTHER, SELFPAY ==
--- NOTE | 2023-10-04 11:24 | XR_ITS ---
FINAL REPORT CLINICAL HISTORY: RT ANKLE PAIN COMPARISON: None FINDINGS: RIGHT ANKLE 3 views of the right ankle were obtained. There is no acute fracture or dislocation. The mortise is intact. Visualized joint spaces are normally aligned. Soft tissues are unremarkable. A small plantar calcaneal spur is present. IMPRESSION: No acute bony abnormality. Reviewed, Interpreted and Dictated by Gagandeep Whitney MD Transcribed by Paloma Taylor Authenticated and [facility]
== END 2023-10-04 23:59 | disposition home or self-care (01) ==
PROVIDERS: PCP Internal Medicine Adolescent Medicine; Visit Provider Internal Medicine Adolescent Medicine
DX: J47.9 Bronchiectasis, uncomplicated (principal); B96.89 Other specified bacterial agents as the cause of diseases classified elsewhere; M25.571 Pain in right ankle and joints of right foot
CPT/HCPCS: 73610; 87070; 87116; 87186; 87205; 87206

== ENCOUNTER 2023-10-09 09:55 | Outpatient (CLI) | payer MEDICARE, OTHER, SELFPAY | END 2023-10-09 23:59 | disposition home or self-care (01) | LOC: RT 09:57 | PROVIDERS: PCP Internal Medicine Adolescent Medicine; Visit Provider Internal Medicine Pulmonary Disease | DX: J41.1 Mucopurulent chronic bronchitis (principal); F17.210 Nicotine dependence, cigarettes, uncomplicated | CPT/HCPCS: 94762 ==

== ENCOUNTER 2023-11-01 09:55 | Outpatient (CLI) | payer MEDICARE, OTHER, SELFPAY ==
[2023-11-01 11:05] VITALS: PULSE 80; PULSE 84
[2023-11-01] MEDS: ALBUTEROL 0.083% 2.5 MG/3 ML NEB IH (11:05)
== END 2023-11-01 23:59 | disposition home or self-care (01) ==
LOC: RT 09:56
PROVIDERS: PCP Internal Medicine Adolescent Medicine; Visit Provider Internal Medicine Pulmonary Disease
DX: R06.09 Other forms of dyspnea (principal)
CPT/HCPCS: 94060; 94618; 94640; 94726; 94729; J7613